=== PATIENT | female | born 1945 | race Caucasian/White ===

== ENCOUNTER 2018-04-23 04:11 | Emergency (ER) | payer OTHER ==
--- OUTSIDE RECORDS SUMMARY | 2018-04-23 04:13 | XMS REPORT | Clinical Summary ---
:1945 Author Organization [facility] Address [address] [place] [address] Care Team Providers Name Role Phone Macario Varela MD Primary Care Provider Allergies Active Allergy Reactions Severity Noted Date Comments Penicillins Anaphylaxis High 12/22/2009 Medications Medication Sig Dispensed Refills Start Date End Date Status TURMERIC (CURCUMIN 0 Active MISC)Indications: Generalized OA losartan (COZAAR) 25 MG Take 25 mg by 0 Active tabletIndications: mouth daily. Essential hypertension metoprolol tartrate Take 50 mg by 0 Active (LOPRESSOR) 50 mg mouth daily. tabletIndications: Paroxysmal atrial fibrillation (HCC) Active Problems Problem Noted Date Paroxysmal atrial fibrillation 04/23/1979 Sleep apnea Hypertension Encounters Date Type Specialty Care Team Description 06/19/2017 Office Visit Rheumatology Greg Mendieta MD Shortness of breath (Primary Dx); Positive DIANA (antinuclear antibody); Elevated C-reactive protein (CRP) 05/31/2017 Orders Only Rheumatology Marisa Pearl MA 05/15/2017 Office Visit Rheumatology Greg Mendieta MD Generalized OA ( Primary Dx); Encounter for long-term (current) use of NSAIDs; Paroxysmal atrial fibrillation; Vitamin D deficiency; Fatigue, unspecified type; Essential hypertension after 04/22/2017 Family History Medical History Relation Name Comments Other Brother TWINS, AT CHILDBIRTH Other Brother TWINS, AT CHILDBIRTH Colon cancer Father Diabetes type II Mother Brain cancer Sister Relation Name Status Comments Brother Brother Father Mother Sister Social History Tobacco Use Types Packs/Day Years Used Date Never Smoker Smokeless Tobacco: Never Used Alcohol Use Drinks/Week oz/Week Comments Yes Very rare Sex Assigned at Date Recorded Not on file Job Start Date Occupation Industry Not on file Not on file Not on file Travel History Travel Start Travel End No recent travel history available. Last Filed Vital Signs Vital Sign Reading Time Taken Blood Pressure 139/72 06/19/2017 4:23 PM PREMIX OPERATOR CONCENTRATE Pulse 67 06/19/2017 4:23 PM [facility] OPER[facility] Temperature 37.1 C (98.8 F) 06/19/2017 4:23 PM [facility] OPER[facility] Respiratory Rate 16 06/19/2017 4:23 PM [facility] OPER[facility] Oxygen Saturation 97% 06/19/2017 4:23 PM [facility] OPER[facility] Inhaled Oxygen Concentration - - Weight 94.8 kg (209 lb 1.6 oz) 06/19/2017 4:23 PM [facility] OPER[facility]CEN[facility] Height 169.5 cm (5' 6.75") 06/19/2017 4:23 PM [facility] OPER[facility] [employer]C[facility] Body Mass Index 33 06/19/2017 4:23 PM [facility] OPER[facility] Plan of Treatment Health Maintenance Due Date Last Done Comments BREAST CANCER SCREENING 1994 COLON CANCER SCREENING 1994 SHINGLES VACCINES (1 of 2) 1994 PNEUMOCOCCAL POLYSACCHARIDE VACCINE AGE 65 AND OVER 2009 PNEUMOCOCCAL-13 2009 INFLUENZA VACCINE 11/21/2017 Procedures Procedure Name Priority Date/Time Associated Comments Diagnosis TB GOLD QUANTIFERON Routine 06/21/2017 9:20 Positive DIANA Results for this AM PREMIX OPERATOR CONCENTRATE (antinuclear procedure are in antibody) the results section. SM AND SM/HEAVY EQUIPMENT OPERATOR Routine 06/21/2017 9:17 Positive DIANA Results for this ANTIBODIES AM PREMIX OPERATOR CONCENTRATE (antinuclear procedure are in antibody) the results section. SCLERODERMA ANTIBODY Routine 06/21/2017 9:17 Positive DIANA Results for this AM PREMIX OPERATOR CONCENTRATE (antinuclear procedure are in antibody) the results section. ANCA SCREEN WITH REFLEX Routine 06/21/2017 9:17 Positive DIANA Results for this TO ANCA TITER AM PREMIX OPERATOR CONCENTRATE (antinuclear procedure are in antibody) the results section. LIV-1 ANTIBODY Routine 06/21/2017 9:17 Positive DIANA Results for this AM PREMIX OPERATOR CONCENTRATE (antinuclear procedure are in antibody) the results section. DNA AB SCREEN Routine 06/21/2017 9:17 Positive DIANA Results for this AM PREMIX OPERATOR CONCENTRATE (antinuclear procedure are in antibody) the results section. COMPLEMENT ACTIVITY, Routine 06/21/2017 9:17 Positive DIANA Results for this TOTAL AM PREMIX OPERATOR CONCENTRATE (antinuclear procedure are in antibody) the results section. C4 COMPLEMENT COMPONENT Routine 06/21/2017 9:17 Positive DIANA Results for this AM PREMIX OPERATOR CONCENTRATE (antinuclear procedure are in antibody) the results section. C3 COMPLEMENT COMPONENT Routine 06/21/2017 9:17 Positive DIANA Results for this AM PREMIX OPERATOR CONCENTRATE (antinuclear procedure are in antibody) the results section. ANGIOTENSIN CONVERTING Routine 06/21/2017 9:17 Shortness of breath Results for this ENZYME AM PREMIX OPERATOR [employer]CENTRATE procedure are in the results section. THYROID STIMULATING Routine 05/15/2017 4:23 Fatigue, Results for this HORMONE PM [facility] [facility]PER[employer]C[facility] unspecified type procedure are in the results section. T4, FREE Routine 05/15/2017 4:23 Fatigue, Results for this PM [employer]MIX OPERATOR [employer]CENTRATE unspecified type procedure are in the results section. RHEUMATOID FACTOR Routine 05/15/2017 4:23 Generalized OA Results for this PM [employer] [facility]PER[facility] [employer] procedure are in the results section. SS-A ANTIBODY Routine 05/15/2017 4:23 Generalized OA Results for this PM [employer] OPER[employer]CEN[facility] procedure are in the results section. SS-B ANTIBODY Routine 05/15/2017 4:23 Generalized OA Results for this PM [employer] OPER[employer]CENTRATE procedure are in the results section. VITAMIN D 25 HYDROXY Routine 05/15/2017 4:23 Vitamin D Results for this LEVEL PM [employer]PER[facility] deficiency procedure are in the results section. HLA-B27 ANTIGEN Routine 05/15/2017 4:23 Generalized OA Results for this PM [employer] OPER[facility] [employer]CENTR[facility] procedure are in the results section. CYCLIC CITRULLINATED Routine 05/15/2017 4:23 Generalized OA Results for this PEPTIDE AB, IGG PM [facility] OPER[facility]CENTRATE procedure are in the results section. DNA AB SCREEN Routine 05/15/2017 4:23 Generalized OA Results for this PM [employer] OPER[employer]CENTR[facility] procedure are in the results section. CREATINE KINASE, TOTAL Routine 05/15/2017 4:23 Generalized OA Results for this (CPK) PM [facility] OPER[facility]CEN[facility] procedure are in the results section. DIANA SCREEN W IFA W Routine 05/15/2017 4:23 Generalized OA Results for this REFLEX TO TITER PM [employer]MIX OPERATOR [employer]CENTR[facility] procedure are in the results section. SEDIMENTATION RATE Routine 05/15/2017 4:23 Generalized OA Results for this PM [employer]PER[facility] procedure are in the results section. C-REACTIVE PROTEIN Routine 05/15/2017 4:23 Generalized OA Results for this PM [employer] OPER[facility] procedure are in the results section. SERUM ELECTROPHORESIS Routine 05/15/2017 4:23 Generalized OA Results for this PM [employer] OPER[facility]CENTRATE procedure are in the results section. after 04/22/2017 Results TB GOLD Quantiferon (06/21/2017 9:20 AM PREMIX OPERATOR CONCENTRATE) Quantiferon TB gold NEGATIVE NEGATIVE [facility] Comment: KIT CARSON Negative test result. M. tuberculosis complex infection unlikely. Quantiferon NIL value 0.03 IU/mL [facility] KIT CARSON Quantiferon mitogen NIL >10.00 IU/mL [facility] value KIT CARSON Quantiferon TB NIL value 0.00 IU/mL [facility] Comment: KIT CARSON The Nil tube value is used to determine if the patient has a preexisting immune response which could cause a false-positive reading on the test. In order for a test to be valid, the Nil tube must have a value of less than or equal to 8.0 IU/mL. The mitogen control tube is used to assure the patient has a healthy immune status and also serves as a control for correct blood handling and incubation. It is used to detect false-negative readings. The mitogen tube must have a gamma interferon value of greater than or equal to 0.5 IU/mL higher than the value of the Nil tube. The TB antigen tube is coated with the M. tuberculosis specific antigens. For a test to be considered positive, the TB antigen tube value minus the Nil tube value must be greater than or equal to 0.35 IU/mL. For additional information, please refer to http://education.MaxLinear/faq/QFT (This link is being provided for informational/ educational purposes only.) Specimen Blood Narrative Performed At SPLIT 06/21/2017 FROM [id number] [employer] Resulting Agency Comment Performing Organization Information: Site ID: [id number] Name: [facility] Address: [address] [place] [phone] Director: Fadia James MD Performing Organization Address [facility]/Zipcode Phone Number [facility] [place] [phone] Sm and Sm/HEAVY EQUIPMENT OPERATOR Antibodies (06/21/2017 9:17 AM PREMIX OPERATOR CONCENTRATE) Barajas antibody <1.0 NEG <1.0 NEG AI [facility] HEAVY EQUIPMENT OPERATOR-SM interp <1.0 NEG <1.0 NEG AI [facility] II Specimen Blood Narrative Performed At FASTING:NO [facility] MULTIPLE COLLECTION TIMES FOR SAME TEST TYPE. FASTING: NO Resulting Agency Comment Performing Organization Information: Site ID: [id number] Name: [facility] Address: [address] [place] [address] Director: Dr. Johnson Burnham Performing Organization Address City/State/Zipcode Phone Number [email or web address] II [address] [facility] [place] [address] ANCA SCREEN WITH REFLEX TO ANCA TITER (06/21/2017 9:17 AM PREMIX OPERATOR CONCENTRATE) ANCA screen NEGATIVE NEGATIVE [facility]/[place] Comment: [facility] ANCA Screen includes evaluation for p-ANCA, c-ANCA and atypical p-ANCA. A positive ANCA screen reflexes to titer and pattern(s), e.g., cytoplasmic pattern (c-ANCA), perinuclear pattern (p-ANCA), or atypical p-ANCA pattern. c-ANCA and p-ANCA are observed in vasculitis, whereas atypical p-ANCA is observed in IBD (Inflammatory Bowel Disease). Atypical p-ANCA is detected in about 55% to 80% of patients with ulcerative colitis but only 5% to 25% of patients with Crohn's disease. P-ANCA titer TNP titer [facility]/[place] Comment: [facility] Test Not Performed. Reflex testing not required. C-ANCA titer TNP titer [facility]/[place] Comment: [facility] Test Not Performed. Reflex testing not required. Atypical P-ANCA titer TNP titer [facility] Comment: [facility] Test Not Performed. Reflex testing not required. Specimen Blood Narrative Performed At FASTING:NO [facility] MULTIPLE COLLECTION TIMES FOR SAME TEST TYPE. FASTING: NO Resulting Agency Comment Performing Organization Information: Site ID: [id number] Name: [employer], Address: [address] [place] [phone] Director: Precious Stein MD,PhD,FERNANDA Performing Organization Address [facility] Phone Number [facility]/PURVIS [phone] [place] [address] [facility] Liv-1 antibody (06/21/2017 9:17 AM PREMIX OPERATOR CONCENTRATE) Liv-1 antibody <1.0 NEG <1.0 NEG AI [facility] II Specimen Blood Narrative Performed At FASTING:NO [facility] MULTIPLE COLLECTION TIMES FOR SAME TEST TYPE. FASTING: NO Resulting Agency Comment Performing Organization Information: Site ID: IG Name: [facility] Address: [address] [facility] [place] [address] Director: Dr. Johnson Burnham Performing Organization Address [facility] Hospitalcode Phone Number [employer] II [address] [place] [address] DNA Ab screen (06/21/2017 9:17 AM PREMIX OPERATOR CONCENTRATE)Only the most recent of2 resultswithin the time period is included. DNA ds antibody <1 IU/mL [facility] II Comment: IU/mL Interpretation < or=4Negative 5-9 Indeterminate > or=10 Positive Specimen Blood Narrative Performed At FASTING:NO [facility] MULTIPLE COLLECTION TIMES FOR SAME TEST TYPE. FASTING: NO Resulting Agency Comment Performing Organization Information: Site ID: IG Name: [facility] Address: [address] [place] [phone] Director: Dr. Johnson Burnham Performing Organization Address [facility] Phone Number [employer] II [address] [place] [address] Scleroderma antibody (06/21/2017 9:17 AM PREMIX OPERATOR CONCENTRATE) Scleroderma SCL-70 Ab <1.0 NEG <1.0 NEG AI [email or web address] II Specimen Blood Narrative Performed At FASTING:NO [facility] MULTIPLE COLLECTION TIMES FOR SAME TEST TYPE. FASTING: NO Resulting Agency Comment Performing Organization Information: Site ID: IG Name: [facility] Address: [address] [place] [phone] Director: Dr. Johnson Burnham Performing Organization Address [facility] Phone Number [employer] II [address] [place] [address] Angiotensin converting enzyme (06/21/2017 9:17 AM PREMIX OPERATOR CONCENTRATE) Angiotensin converting enzyme 32 9 - 67 U/L [facility] II Specimen Blood Narrative Performed At FASTING:NO [facility] MULTIPLE COLLECTION TIMES FOR SAME TEST TYPE. FASTING: NO Resulting Agency Comment Performing Organization Information: Site ID: IG Name: [facility] Address: [address] [place] [phone] Director: Dr. Johnson Burnham Performing Organization Address [facility] Phone Number [employer] II [address] [place] [phone] Complement activity, total (06/21/2017 9:17 AM PREMIX OPERATOR CONCENTRATE) Complement activity, total >60 (H) 31 - 60 U/mL [facility]/[employer] [facility] Specimen Blood Narrative Performed At FASTING:NO [facility] MULTIPLE COLLECTION TIMES FOR SAME TEST TYPE. FASTING: NO Resulting Agency Comment Performing Organization Information: Site ID: EZ Name: [employer] [facility]-[place], Address: [address] [place] [phone] Director: Precious Stein MD,PhD,FERNANDA Performing Organization Address City/State/Zipcode Phone Number [facility]/[employer] [address] [place] [address] [facility] C3 complement component (06/21/2017 9:17 AM PREMIX OPERATOR CONCENTRATE) C3 complement 143 83 - 193 mg/dL [facility] KIT CARSON Specimen Blood Narrative Performed At FASTING:NO [facility] MULTIPLE COLLECTION TIMES FOR SAME TEST TYPE. FASTING: NO Resulting Agency Comment Performing Organization Information: Site ID: RGA Name: [facility] Address: [address] [place] [phone] Director: Fadia James MD Performing Organization Address [facility] Phone Number [employer] [address] [address] C4 complement component (06/21/2017 9:17 AM PREMIX OPERATOR CONCENTRATE) C4 complement 32 15 - 57 mg/dL [facility] KIT CARSON Specimen Blood Narrative Performed At FASTING:NO [facility] MULTIPLE COLLECTION TIMES FOR SAME TEST TYPE. FASTING: NO Resulting Agency Comment Performing Organization Information: Site ID: RGA Name: [facility] Address: [address] [place] [phone] Director: Fadia James MD Performing Organization Address [facility] Phone Number [employer] [place] [phone] DIANA SCREEN W IFA W REFLEX TO TITER (05/15/2017 4:23 PM PREMIX OPERATOR CONCENTRATE) DIANA screen POSITIVE (A) NEGATIVE [facility] II Comment: DIANA IFA is a first line screen for detecting the presence of up to approximately 150 autoantibodies in various autoimmune diseases. A positive DIANA IFA result is suggestive of autoimmune disease and reflexes to titer and pattern. Further laboratory testing may be considered if clinically indicated. Visit Physician FAQs for interpretation of all antibodies in the [place], prevalence, and association with diseases at http://LensVector.[employer]/ faq/KFS386 DIANA pattern SPECKLED (A) [email or web address] II Comment: Speckled pattern is associated with mixed connective tissue disease (MCTD), systemic lupus erythematosus (SLE), Sjogren's syndrome, dermatomyositis, and systemic sclerosis/polymyositis overlap. DIANA titer 1:40 (H) titer [email or web address] II Comment: A low level DIANA titer may be present in pre-clinical autoimmune diseases and normal individuals. Reference Range <1:40Negative 1:40-1:80Low Antibody Level >1:80Elevated Antibody Level Specimen Blood Narrative Performed At FASTING:NO [facility] FASTING: NO Resulting Agency Comment Performing Organization Information: Site ID: IG Name: [facility] Address: [address] [place] [phone] Director: Dr. Johnson Burnham Performing Organization Address [facility] Phone Number [employer] [address] [address] SS-B antibody (05/15/2017 4:23 PM PREMIX OPERATOR CONCENTRATE) Sjogren's SS-B antibody <1.0 NEG <1.0 NEG AI [email or web address] Specimen Blood Narrative Performed At FASTING:NO [facility] FASTING: NO Resulting Agency Comment Performing Organization Information: Site ID: IG Name: [facility] Address: [address] [place] [phone] Director: Dr. Johnson Burnham Performing Organization Address [facility] Phone Number [employer] [address] [address] SS-A antibody (05/15/2017 4:23 PM PREMIX OPERATOR CONCENTRATE) Sjogren's SS-A antibody <1.0 NEG <1.0 NEG AI [email or web address] Specimen Blood Narrative Performed At FASTING:NO [facility] FASTING: NO Resulting Agency Comment Performing Organization Information: Site ID: IG Name: [facility] Address: [address] [place] [phone] Director: Dr. Johnson Burnham Performing Organization Address [facility] Phone Number [facility] [employer] [address] HLA-B27 antigen (05/15/2017 4:23 PM PREMIX OPERATOR CONCENTRATE) HLA B27 NEGATIVE NEGATIVE [email or web address] Specimen Blood Narrative Performed At FASTING:NO [facility] FASTING: NO Resulting Agency Comment Performing Organization Information: Site ID: IG Name: [facility] Address: [address] [place] [phone] Director: Dr. Johnson Burnham Performing Organization Address [facility] Phone Number [email or web address] [address] Cyclic citrullinated peptide antibody, IgG (05/15/2017 4:23 PM PREMIX OPERATOR CONCENTRATE) Cyclic citrullin peptide <16 UNITS [email or web address] Ab Comment: II Reference Range Negative:<20 Weak Positive: 20-39 Moderate Positive: 40-59 Strong Positive: >59 Specimen Blood Narrative Performed At FASTING:NO [facility] FASTING: NO Resulting Agency Comment Performing Organization Information: Site ID: IG Name: [facility] Address: [address] [place] [phone] Director: Dr. Johnson Burnham Performing Organization Address [facility] Phone Number [email or web address] [address] Vitamin D 25 hydroxy level (05/15/2017 4:23 PM PREMIX OPERATOR CONCENTRATE) Vitamin D, 25-hydroxy 13 (L) 30 - 100 ng/mL [facility] Comment: SANCHEZ Vitamin D Status 25-OH Vitamin D: Deficiency:<20 ng/mL Insufficiency: 20 - 29 ng/mL Optimal: > or=30 ng/mL For 25-OH Vitamin D testing on patients on D2-supplementation and patients for whom quantitation of D2 and D3 fractions is required, the QuestAssureD() 25-OH VIT D, (D2,D3), LC/MS/MS is recommended: order code 65802 (patients >2yrs). For more information on this test, go to: http://education.MaxLinear/faq/YXP755 (This link is being provided for informational/educational purposes only.) Specimen Blood Narrative Performed At FASTING:NO [facility] FASTING: NO Resulting Agency Comment Performing Organization Information: Site ID: [facility] Name: [facility] Address: [address] [place], [place] [id number] Director: Fadia James MD Performing Organization Address [facility] [place] [address] Sedimentation rate (05/15/2017 4:23 PM PREMIX OPERATOR CONCENTRATE) Sedimentation rate 22 < OR=30 mm/h [facility] [employer] KIT CARSON Specimen Blood Narrative Performed At FASTING:NO [facility] FASTING: NO Resulting Agency Comment Performing Organization Information: Site ID: [facility] Name: [facility] Address: [address] [place] [address] Director: Fadia James MD Performing Organization Address [facility] [place] [address] Rheumatoid factor (05/15/2017 4:23 PM PREMIX OPERATOR CONCENTRATE) Rheumatoid factor <14 <14 IU/mL [facility] [employer] KIT CARSON Specimen Blood Narrative Performed At FASTING:NO [facility] FASTING: NO Resulting Agency Comment Performing Organization Information: Site ID: [facility] Name: [facility] Address: [address] [place] [phone] Director: Fadia James MD Performing Organization Address [facility] [place] [address] C-reactive protein (05/15/2017 4:23 PM PREMIX OPERATOR CONCENTRATE) CRP 8.5 (H) <8.0 mg/L [facility] KIT CARSON Specimen Blood Narrative Performed At FASTING:NO [facility] FASTING: NO Resulting Agency Comment Performing Organization Information: Site ID: [facility] Name: [facility] Address: [address] [place] [phone] Director: Fadia James MD Performing Organization Address [facility] [place] [address] Thyroid stimulating hormone (05/15/2017 4:23 PM PREMIX OPERATOR CONCENTRATE) TSH 1.02 0.40 - 4.50 mIU/L [facility] KIT CARSON Narrative Performed At FASTING:NO [facility] FASTING: NO Resulting Agency Comment Performing Organization Information: Site ID: [facility] Name: [facility] Address: [address] [place], [place] [id number] Director: Fadia James MD Performing Organization Address [facility] Phone Number [employer] [place] [phone] T4, free (05/15/2017 4:23 PM PREMIX OPERATOR CONCENTRATE) T4, free 1.2 0.8 - 1.8 ng/dL [employer] KIT CARSON Narrative Performed At FASTING:NO [facility] FASTING: NO Resulting Agency Comment Performing Organization Information: Site ID: [facility] Name: [facility] Address: [address] [place] [address] Director: Fadia James MD Performing Organization Address [facility] [place] [address] Serum electrophoresis (05/15/2017 4:23 PM PREMIX OPERATOR CONCENTRATE) Protein 6.9 6.1 - 8.1 g/dL [facility] II Albumin, S 4.2 3.8 - 4.8 g/dL [facility] II Antnc-1-figsibil 0.3 0.2 - 0.3 g/dL [facility] II Zwewp-2-blgwqxbd 0.7 0.5 - 0.9 g/dL [facility] II Beta-1 globulin 0.4 0.4 - 0.6 g/dL [facility] II Beta-2 globulin 0.4 0.2 - 0.5 g/dL [facility] Gamma, CSF 0.9 0.8 - 1.7 g/dL [facility] Interpretation [facility] Normal Electrophoretic Pattern Specimen Blood Narrative Performed At FASTING:NO [facility] FASTING: NO Resulting Agency Comment Performing Organization Information: Site ID: [id number] Name: [facility] Address: [address] [place] [address] Director: Dr. Johnson Burnham Performing Organization Address City/State/[facility] Phone Number [facility] [address] [facility] [place] [address] Creatine kinase, total (CPK) (05/15/2017 4:23 PM PREMIX OPERATOR CONCENTRATE) Creatine kinase 61 29 - 143 U/L [facility] Specimen Blood Narrative Performed At FASTING:NO [facility] FASTING: NO Resulting Agency Comment Performing Organization Information: Site ID: [id number] Name: [facility] Address: [address] [place] [address] Director: Fadia James MD Performing Organization Address City/[facility] Phone Number [facility] KIT CARSON [address] [place] [address] after 04/22/2017 Insurance Payer Benefit Plan / Group Subscriber ID Type Phone Address HUMANA MEDICARE HUMANA MEDICARE PPO/PFFS/[facility] xxxxxxxxx PPO Advance Directives Patient has advance care planning documents on file. For more information, please contact:Chuck Cole[address] [place] [address]
--- NOTE | 2018-04-23 05:08 | EDPHYS ---
Physician Documentation [facility] Name: Zhanna Santos Age: 72 yrs Sex: Female : 1945 Arrival Date: 04/23/2018 Time: 04:12 Bed 15 Private MD: Macario Varela V ED Physician Homar Carlos HPI: 04/23 05:03 This 72 yrs old Female presents to ER via Unassigned with complaints of joint gs pain, Shoulder Pain. 05:03 joint pain, last week bl knee joint pain got better, improved with celebrex, now has gs right shoulder pain. states pain is severe worse with rom of r [place]. Historical: - Allergies: 04:50 PENICILLINS; cc3 - Home Meds: 04:50 glimepiride 2 mg Oral tab 1 tab once daily [Active]; Farxiga 10 mg oral tab 1 tab once cc3 daily [Active]; hydrochlorothiazide 12.5 mg Oral cap 1 cap every other day [Active]; metoprolol tartrate 100 mg Oral tab 1 tab once daily [Active]; losartan 25 mg oral tab 1 tab once daily [Active]; - PMHx: 05:06 Hypertension; Diabetes - NIDDM; gs 04:50 irregular heartbeat; cc3 - PSHx: 04:50 Hysterectomy; Appendectomy; 2 bladder surgeries; cc3 - Immunization history:: Adult Immunizations up to date. - Social history:: The patient lives at home, Smoking status: Patient/guardian denies using tobacco, never smoked. - Ebola Screening: : No symptoms or risks identified at this time. ROS: 05:06 All other systems are negative. gs Exam: 05:06 Head/Face: Normocephalic, atraumatic. Eyes: Pupils equal round and reactive to light, gs extra-ocular motions intact. Lids and lashes normal. Conjunctiva and sclera are non-icteric and not injected. Cornea within normal limits. Periorbital areas with no swelling, redness, or edema. ENT: Nares patent. No nasal discharge, no septal abnormalities noted. Tympanic membranes are normal and external auditory canals are clear. Oropharynx with no redness, swelling, or masses, exudates, or evidence of obstruction, uvula midline. Mucous membranes moist. Neck: Trachea midline, no thyromegaly or masses palpated, and no cervical lymphadenopathy. Supple, full range of motion without nuchal rigidity, or vertebral point tenderness. No Meningismus. Chest/axilla: Normal chest wall appearance and motion. Nontender with no deformity. No lesions are appreciated. Cardiovascular: Regular rate and rhythm with a normal S1 and S2. No gallops, murmurs, or rubs. Normal PMI, no JVD. No pulse deficits. Respiratory: Lungs have equal breath sounds bilaterally, clear to auscultation and percussion. No rales, rhonchi or wheezes noted. No increased work of breathing, no retractions or nasal flaring. Abdomen/GI: Soft, non-tender, with normal bowel sounds. No distension or tympany. No guarding or rebound. No evidence of tenderness throughout. Back: No spinal tenderness. No costovertebral tenderness. Full range of motion. Skin: Warm, dry with normal turgor. Normal color with no rashes, no lesions, and no evidence of cellulitis. Neuro: Awake and alert, GCS 15, oriented to person, place, time, and situation. Cranial nerves II-XII grossly intact. Motor strength 5/5 in all extremities. Sensory grossly intact. Cerebellar exam normal. Normal gait. 05:06 Constitutional: The patient appears alert, awake. 05:06 Musculoskeletal/extremity: Pulses: are normal with no appreciated deficits, Sensation intact. Compartment Syndrome exam of affected extremity: is normal. Joints: the right shoulder displays tenderness, pain with rom no effusion or erythema. Vital Signs: 04:50 BP 136 / 59; Pulse 60; Resp 17 S; Temp 98.8(O); Pulse Ox 98% on R/A; Weight 92.53 kg cc3 (R); Height 5 ft. 7 in. (170.18 cm) (R); 04:50 Body Mass Index 31.95 (92.53 kg, 170.18 cm) cc3 MDM: 04:55 Patient medically screened. 05:06 Differential diagnosis: tendonitis, arthritis. Data reviewed: vital signs, nurses gs notes. Response to treatment: the patient's symptoms have mildly improved after treatment, and as a result, I will discharge patient. Administered Medications: 05:25 Drug: predniSONE 40 mg Route: PO; cc3 05:33 Follow up: Response: No adverse reaction cc3 05:25 Drug: Saline (7.5 mg-325 mg) 1 tabs Route: PO; cc3 05:33 Follow up: Response: No adverse reaction cc3 Disposition: 04/23/18 05:07 Discharged to Home. Impression: Polyarthritis, unspecified. - Condition is Stable. - Discharge Instructions: Arthritis, [id number]. - Prescriptions for Ibuprofen 600 mg Oral Tablet - take 1 tablet by ORAL route every 6 hours As needed take with food; 30 tablet. Prednisone 20 mg Oral Tablet - take 1 tablet by ORAL route once daily for 5 days; 5 tablet. Tylenol- Codeine #4 300-60 mg Oral Tablet - take 1 tablet by ORAL route every 6 hours As needed; 10 tablet. - Medication Reconciliation Form, Thank You Letter, Antibiotic Education, Prescription Opioid Use form. - Follow up: Macario Varela MD; When: 2 - 3 days; Reason: Re-evaluation by your physician. Signatures: Homar Carlos MD MD Florencia Sparks cc3 Corrections: (The following items were deleted from the chart) 05:33 05:07 04/23/2018 05:07 Discharged to Home. Impression: Polyarthritis, unspecified. cc3 Condition is Stable. Forms are Medication Reconciliation Form, Thank You Letter, Antibiotic Education, Prescription Opioid Use. Follow up: Macario Varela; When: 2 - 3 days; Reason: Re-evaluation by your physician. gs
[2018-04-23] MEDS ORDERED: HYDROCODONE/APAP 7.5/325 MG TAB ONE (05:30)
[2018-04-23] MEDS ORDERED: predniSONE 20 MG TAB ONE (05:31)
--- NOTE | 2018-04-23 05:34 | ER ---
Nurse's Notes [facility] Name: Zhanna Santos Age: 72 yrs Sex: Female : 1945 Arrival Date: 04/23/2018 Time: 04:12 Bed 15 Private MD: Macario Varela V Diagnosis: Polyarthritis, unspecified Presentation: 04/23 04:50 Presenting complaint: Patient states: Nontraumatic right shoulder joint pain since 4 cc3 days. Transition of care: patient was not received from another setting of care. Onset of symptoms was April 18, 2018. Risk Assessment: Do you want to hurt yourself or someone else? Patient reports no desire to harm self or others. Initial Sepsis Screen: Does the patient meet any 2 criteria? No. Patient's initial sepsis screen is negative. Does the patient have a suspected source of infection? No. Patient's initial sepsis screen is negative. Care prior to arrival: None. 04:50 Method Of Arrival: Ambulatory cc3 04:50 Acuity: SIVAKUMAR 4 cc3 Triage Assessment: 04:50 General: Appears in no apparent distress. uncomfortable, Behavior is calm, cooperative, cc3 appropriate for age. Pain: Complains of pain in right shoulder. Historical: - Allergies: 04:50 PENICILLINS; cc3 - Home Meds: 04:50 glimepiride 2 mg Oral tab 1 tab once daily [Active]; Farxiga 10 mg oral tab 1 tab once cc3 daily [Active]; hydrochlorothiazide 12.5 mg Oral cap 1 cap every other day [Active]; metoprolol tartrate 100 mg Oral tab 1 tab once daily [Active]; losartan 25 mg oral tab 1 tab once daily [Active]; - PMHx: 05:06 Hypertension; Diabetes - NIDDM; gs 04:50 irregular heartbeat; cc3 - PSHx: 04:50 Hysterectomy; Appendectomy; 2 bladder surgeries; cc3 - Immunization history:: Adult Immunizations up to date. - Social history:: The patient lives at home, Smoking status: Patient/guardian denies using tobacco, never smoked. - Ebola Screening: : No symptoms or risks identified at this time. Screenin:50 Abuse screen: Denies threats or abuse. Denies injuries from another. Nutritional cc3 screening: No deficits noted. Tuberculosis screening: No symptoms or risk factors identified. Fall Risk Ambulatory Aid- None/Bed Rest/Nurse Assist (0 pts). Gait- Normal/Bed Rest/Wheelchair (0 pts) Mental Status- Oriented to own ability (0 pts). Assessment: 05:33 Reassessment: Patient appears in no apparent distress at this time. Patient and/or cc3 family updated on plan of care and expected duration. Pain level reassessed. Patient is alert, oriented x 3, equal unlabored respirations, skin warm/dry/pink. Dr. Carlos discharged the patient home with prescription given. No IV cannula in situ and patient left ER vitally stable and ambulatory with her . Vital Signs: 04:50 BP 136 / 59; Pulse 60; Resp 17 S; Temp 98.8(O); Pulse Ox 98% on R/A; Weight 92.53 kg cc3 (R); Height 5 ft. 7 in. (170.18 cm) (R); 04:50 Body Mass Index 31.95 (92.53 kg, 170.18 cm) cc3 ED Course: 04:12 Patient arrived in ED. am2 04:12 Macario Varela MD is Private Physician. am2 04:30 Florencia Sparks is Primary Nurse. cc3 04:40 Homar Carlos MD is Attending Physician. gs 04:50 Arm band placed on left wrist. Patient notified of wait time. cc3 04:50 Patient has correct armband on for positive identification. Bed in low position. Call cc3 light in reach. Side rails up X 1. Pulse ox on. NIBP on. 05:07 Macario Varela MD is Referral Physician. gs 05:14 Triage completed. cc3 05:33 No provider procedures requiring assistance completed. Patient did not have IV access cc3 during this emergency room visit. Administered Medications: 05:25 Drug: predniSONE 40 mg Route: PO; cc3 05:33 Follow up: Response: No adverse reaction cc3 05:25 Drug: Weed (7.5 mg-325 mg) 1 tabs Route: PO; cc3 05:33 Follow up: Response: No adverse reaction cc3 Outcome: 05:07 Discharge ordered by . gs 05:33 Patient left the ED. cc3 05:33 Discharged to home ambulatory, with family. cc3 05:33 Condition: stable 05:33 Discharge instructions given to patient, family, Instructed on discharge instructions, follow up and referral plans. medication usage, Demonstrated understanding of instructions, follow-up care, medications, Prescriptions given X 3. Signatures: Barbara Nova am2 Homar Carlos MD MD gs Cordel, Charlene cc3 Corrections: (The following items were deleted from the chart) 06:55 05:34 No provider procedures requiring assistance completed. cc3 cc3 06:55 05:34 Patient did not have IV access during this emergency room visit. cc3 cc3 07:03 05:34 Reassessment: Patient appears in no apparent distress at this time. Patient cc3 and/or family updated on plan of care and expected duration. Pain level reassessed. Patient is alert, oriented x 3, equal unlabored respirations, skin warm/dry/pink. Dr. Carlos discharged the patient home with prescription given. No IV cannula in situ and patient left ER vitally stable and ambulatory with her . cc3
== END 2018-04-23 05:33 | disposition home or self-care (01) ==
LOC: ER 04:11
DX: M13.0 Polyarthritis, unspecified (principal); I10 Essential (primary) hypertension; E11.9 Type 2 diabetes mellitus without complications; Z88.0 Allergy status to penicillin
CPT/HCPCS: 99283; J7512

== ENCOUNTER 2018-09-27 16:06 | Emergency (ER) | payer OTHER ==
--- OUTSIDE RECORDS SUMMARY | 2018-09-27 16:20 | XMS REPORT | Clinical Summary ---
:1945 Author Organization [facility] Address [address] [place] [address] Care Team Providers Name Role Phone Macario [...] Paroxysmal atrial fibrillation 04/23/1979 Sleep apnea Hypertension Family History Medical History Relation Name Comments [...] travel history available. Last Filed Vital Signs Not on file Plan of Treatment Health Maintenance Due Date Last Done Comments BREAST CANCER SCREENING 1994 COLON CANCER SCREENING 1994 SHINGLES VACCINES (#1) 1994 65+ PNEUMOCOCCAL VACCINE (1 of 2 - PCV13) 2009 INFLUENZA VACCINE 11/21/2018 Results Not on fileafter 09/26/2017 Insurance Payer Benefit Plan / Subscriber ID Effective Dates Phone Address Type Group HUMANA MEDICARE HUMANA MEDICARE xxxxxxxxx 2017-Present PPO PPO/PFFS/[facility] Advance Directives Patient has advance care planning documents on file. For more information, please contact:Chuck Cole[address] [place] [address]
[2018-09-27 17:14] LABS: Absolute Lymphocytes (CBC) 1.1 K/uL (0.7-4.9); Absolute Monocytes 1.2 K/uL (0.1-1.3); Absolute Neutrophil 8.2 K/uL (1.8-8.0); Basophils % 0.9 % (0-1.3); Eosinophils % 1.8 % (0-4.4); Hematocrit 45.3 % (36.0-45.0); Lymphocytes % 10.4 % (15.3-44.8); Monocytes % 11.2 % (3.3-12.3); RBC Red Blood Cell Count 4.84 M/uL (3.86-4.86)
[2018-09-27 17:16] LABS: Protime INR 1.02
--- NOTE | 2018-09-27 17:29 | RAD REPORT ---
EXAM DESCRIPTION: [facility] Single View09/27/2018 4:58 pm CLINICAL HISTORY: Chest pain COMPARISON: 2017 FINDINGS: The lungs appear clear of acute infiltrate. The heart is borderline enlarged IMPRESSION: No acute abnormalities displayed
[2018-09-27 17:30] LABS: ALT/SGPT 26 U/L (12-78); AST/SGOT 10 U/L (15-37); Albumin 3.4 g/dL (3.4-5.0); Alkaline Phosphatase 94 U/L (45-117); BUN Blood Urea Nitrogen 15 mg/dL (7-18); Bicarbonate 26 mmol/L (21-32); Bilirubin Direct 0.1 mg/dL (0-0.2); Bilirubin Total 0.5 mg/dL (0.2-1.0); Glucose Level 114 mg/dL (74-106); Lipase 55 U/L (73-393); Magnesium 2.2 mg/dL (1.8-2.4); NT PRO-BNP 233 pg/mL (<125); Protein, Total 7.5 g/dL (6.4-8.2); Sodium Level 139 mmol/L (136-145); Troponin (Emerg Dept Use Only) < 0.02 ng/mL (0.0-0.045)
--- NOTE | 2018-09-27 18:23 | RAD REPORT ---
EXAM DESCRIPTION: CT - Chest For Pe Angio - 09/27/2018 6:09 pm CLINICAL HISTORY: Chest pain COMPARISON: None. TECHNIQUE: Dynamically enhanced axial 3 mm thick images of the chest were obtained during administra tion of <100> mL Isovue 370 IV contrast. Coronal and oblique reconstruction images were generated and reviewed. Exam utilizes a protocol for optimal evaluation of pulmonary arterial tree. Maximum intensity projections 3D imaging was utilized All CT scans are performed using dose optimization technique as appropriate and may include automated exposure control or mA/KV adjustment according to patient size. FINDINGS: A pulmonary embolus is not seen. A thoracic aortic aneurysm is not noted. A pleural effusion is not seen. A pericardial effusion is not seen. A lung consolidation is not present. Fatty liver IMPRESSION: Negative for a pulmonary embolism.
--- NOTE | 2018-09-27 19:10 | ER ---
Nurse's Notes [facility] Name: Zhanna Santos Age: 72 yrs Sex: Female : 1945 Arrival Date: 09/27/2018 Time: 16:10 Bed 15 Private MD: Macario Varela V Diagnosis: Chest pain, unspecified Presentation: 09/27 16:15 Presenting complaint: Patient states: pain to right side of chest that began 3-4 days aa5 ago. Pt also reports SOB and upper abd pain. Pt denies vomiting/diarrhea. Transition of care: patient was not received from another setting of care. Onset of symptoms was September 2018. Risk Assessment: Do you want to hurt yourself or someone else? Patient reports no desire to harm self or others. Care prior to arrival: None. 16:15 Method Of Arrival: Ambulatory aa5 16:15 Acuity: SIVAKUMAR 3 aa5 19:31 Initial Sepsis Screen: Does the patient meet any 2 criteria? No. Patient's initial ak1 sepsis screen is negative. Does the patient have a suspected source of infection? No. Patient's initial sepsis screen is negative. Historical: - Allergies: 16:17 PENICILLINS; aa5 - PMHx: 16:17 Diabetes - NIDDM; Hypertension; irregular heartbeat; aa5 16:17 Mitral valve prolapse; aa5 - PSHx: 16:17 Hysterectomy; Appendectomy; 2 bladder surgeries; aa5 - Immunization history:: Adult Immunizations up to date. - Social history:: Smoking status: Patient/guardian denies using tobacco. - Ebola Screening: : No symptoms or risks identified at this time. Screenin:32 Abuse screen: Denies threats or abuse. Denies injuries from another. Nutritional ch screening: No deficits noted. Tuberculosis screening: No symptoms or risk factors identified. Fall Risk None identified. Assessment: 17:45 Reassessment: Patient appears in no apparent distress at this time. Patient and/or ch family updated on plan of care and expected duration. Pain level reassessed. Patient is alert, oriented x 3, equal unlabored respirations, skin warm/dry/pink. General: Appears in no apparent distress. comfortable. Pain: Pain does not radiate. Pain began suddenly. Neuro: No deficits noted. Cardiovascular: Heart tones S1 S2 present Capillary refill < 3 seconds in bilateral fingers toes Clubbing of nail beds is absent Pulses are all present. Respiratory: Airway is patent Respiratory effort is even, unlabored, Breath sounds are clear bilaterally. GI: No signs and/or symptoms were reported involving the gastrointestinal system. Abdomen is round non-distended, Bowel sounds present X 4 quads. EENT: No signs and/or symptoms were reported regarding the EENT system. 19:30 Reassessment: Patient appears in no apparent distress at this time. General: Appears in ak1 no apparent distress. comfortable, Behavior is calm, cooperative. Pain: Denies pain. Neuro: No deficits noted. Cardiovascular: No deficits noted. Respiratory: No deficits noted. GI: No deficits noted. : No signs and/or symptoms were reported regarding the genitourinary system. EENT: No signs and/or symptoms were reported regarding the EENT system. Derm: No signs and/or symptoms reported regarding the dermatologic system. Musculoskeletal: No signs and/or symptoms reported regarding the musculoskeletal system. Vital Signs: 16:17 BP 141 / 84; Pulse 65; Resp 18 S; Temp 99.3(O); Pulse Ox 96% on R/A; Weight 91.63 kg aa5 (R); Height 5 ft. 7 in. (170.18 cm) (R); Pain 3/10; 17:45 BP 147 / 62; Pulse 56; Resp 16; Temp 98.1; Pulse Ox 99% on R/A; Pain 3/10; ch 18:31 BP 126 / 82; Pulse 56; Resp 14; Pulse Ox 99% on R/A; Pain 1/10; ch 19:32 BP 139 / 66; Pulse 53; Resp 16; Temp 98.2; Pulse Ox 98% on R/A; Pain 0/10; ak1 16:17 Body Mass Index 31.64 (91.63 kg, 170.18 cm) aa5 ED Course: 16:10 Patient arrived in ED. mr 16:10 Macario Varela MD is Private Physician. mr 16:13 Arm band placed on. aa5 16:16 Triage completed. aa5 16:19 Kendell Millan NP is PHCP. pm1 16:19 Lisandro Dinero MD is Attending Physician. pm1 16:19 EKG completed in triage. Results shown to MD. aa5 16:20 Mota, Shaunna, RN is Primary Nurse. 16:34 EKG done, by net technical architect. reviewed by Kendell Millan NP. 3 16:55 X-ray completed. Portable x-ray completed in exam room. Patient tolerated procedure ml well. 16:56 XRAY Chest (1 view) In Process Unspecified. EDMS 17:00 Patient has correct armband on for positive identification. Placed in gown. Bed in low ch position. Call light in reach. Side rails up X 1. Adult w/ patient. quality assurance monitor final on. Pulse ox on. NIBP on. 17:00 Warm blanket given. ch 17:00 No provider procedures requiring assistance completed. Patient maintains SpO2 ch saturation greater than 95% on room air. 17:03 Initial lab(s) drawn, by me, sent to lab. Inserted saline lock: 20 gauge in right dh3 antecubital area, using aseptic technique. Blood collected. 17:[address] ks 18:10 CT Chest For PE Angio In Process Unspecified. EDOH 19:17 Eric Evans, RN is Primary Nurse. ak1 19:18 Report given to eric. 19:31 IV discontinued, intact, bleeding controlled, No redness/swelling at site. Pressure ak1 dressing applied. Administered Medications: 19:30 Drug: GI Cocktail without - (Maalox Suspension 30 ml, Lidocaine Liquid 2 % 15 ak1 ml) Route: PO; 19:30 Follow up: Response: No adverse reaction; Medication administered at discharge. ak1 Outcome: 19:11 Discharge ordered by MD. pm1 19:31 Discharged to home ambulatory, with family. ak1 19:31 Condition: good 19:31 Discharge instructions given to patient, family, Instructed on discharge instructions, follow up and referral plans. medication usage, Demonstrated understanding of instructions, follow-up care, medications, Prescriptions given X 1. 19:32 Patient left the ED. ak1 Signatures: Dispatcher [employer] EDOH Shaunna Mota, JORDAN Stein, Nicole mr Hunter, Julia Parham RN RN aa5 Eric Evans, RN RN ak1 Kendell Millan, GERALDO BURR FILER pm1 Kristopher Small Deanna [facility] Henna Armando 3 Corrections: (The following items were deleted from the chart) 16:19 16:17 PMHx: Prolapsed mitral valve; aa5 aa5 16:23 16:17 BP 141 / 84; Pulse 65bpm; Resp 18bpm; Spontaneous; Pulse Ox 96% RA; 91.63 kg aa5 Reported; Height 5 ft. 7 in. Reported; BMI: 31.6; Pain 3/10; aa5 18:32 17:45 BP 126 / 82; Pulse 56bpm; Resp 14bpm; Pulse Ox 99% RA; Pain 1/10; ch ch
--- NOTE | 2018-09-27 19:11 | EDPHYS ---
Physician Documentation [facility] – [place], [place] Name: Zhanna Santos Age: 72 yrs Sex: Female : 1945 Arrival Date: 09/27/2018 Time: 16:10 Bed 15 Private MD: Macario Varela V ED Physician Lisandro Dinero HPI: 09/27 17:44 This 72 yrs old Female presents to ER via Ambulatory with complaints of Chest pm1 Tightness, Abdominal Pain. 17:45 The patient or guardian reports chest pain that is located primarily in the mid-sternal pm1 area. Onset: 4 day(s) ago. The pain radiates to back. Associated signs and symptoms: Pertinent positives: abdominal pain, Epigastric area, Pain reproduced with deep inspiration, no shortness of breath, Pertinent negatives: cough, diaphoresis, headache, nausea, vomiting. The chest pain is described as a pressure. Duration: The patient or guardian reports a single episode, that is still ongoing. Modifying factors: The symptoms are alleviated by nothing. the symptoms are aggravated by deep breath. Severity of pain: in the emergency department the pain is unchanged. The patient has not experienced similar symptoms in the past. The patient has not recently seen a physician. Historical: - Allergies: 16:17 PENICILLINS; aa5 - PMHx: 16:17 Diabetes - NIDDM; Hypertension; irregular heartbeat; aa5 16:17 Mitral valve prolapse; aa5 - PSHx: 16:17 Hysterectomy; Appendectomy; 2 bladder surgeries; aa5 - Immunization history:: Adult Immunizations up to date. - Social history:: Smoking status: Patient/guardian denies using tobacco. - Ebola Screening: : No symptoms or risks identified at this time. ROS: 17:45 Constitutional: Negative for fever, chills, and weight loss, Eyes: Negative for injury, pm1 pain, redness, and discharge, ENT: Negative for injury, pain, and discharge, Neck: Negative for injury, pain, and swelling. 17:45 Respiratory: Negative for shortness of breath, cough, wheezing, and pleuritic chest pain. 17:45 Back: Negative for injury and pain, : Negative for injury, bleeding, discharge, and swelling, MS/Extremity: Negative for injury and deformity, Skin: Negative for injury, rash, and discoloration, Neuro: Negative for headache, weakness, numbness, tingling, and seizure. 17:45 Cardiovascular: Positive for chest pain, Negative for edema, orthopnea, palpitations. 17:45 Abdomen/GI: Positive for abdominal pain, of the epigastric area, Negative for nausea, vomiting, and diarrhea. Exam: 17:45 Constitutional: This is a well developed, well nourished patient who is awake, alert, pm1 and in no acute distress. Head/Face: Normocephalic, atraumatic. Eyes: Pupils equal round and reactive to light, extra-ocular motions intact. Lids and lashes normal. Conjunctiva and sclera are non-icteric and not injected. Cornea within normal limits. Periorbital areas with no swelling, redness, or edema. ENT: Nares patent. No nasal discharge, no septal abnormalities noted. Tympanic membranes are normal and external auditory canals are clear. Oropharynx with no redness, swelling, or masses, exudates, or evidence of obstruction, uvula midline. Mucous membranes moist. Neck: Trachea midline, no thyromegaly or masses palpated, and no cervical lymphadenopathy. Supple, full range of motion without nuchal rigidity, or vertebral point tenderness. No Meningismus. Chest/axilla: Normal chest wall appearance and motion. Nontender with no deformity. No lesions are appreciated. Cardiovascular: Regular rate and rhythm with a normal S1 and S2. No gallops, murmurs, or rubs. Normal PMI, no JVD. No pulse deficits. Respiratory: Lungs have equal breath sounds bilaterally, clear to auscultation and percussion. No rales, rhonchi or wheezes noted. No increased work of breathing, no retractions or nasal flaring. Abdomen/GI: Soft, non-tender, with normal bowel sounds. No distension or tympany. No guarding or rebound. No evidence of tenderness throughout. Back: No spinal tenderness. No costovertebral tenderness. Full range of motion. Skin: Warm, dry with normal turgor. Normal color with no rashes, no lesions, and no evidence of cellulitis. MS/ Extremity: Pulses equal, no cyanosis. Neurovascular intact. Full, normal range of motion. 17:45 Neuro: Orientation: is normal, Motor: is normal, moves all fours, Sensation: is normal, no obvious gross deficits, Gait: is steady, at a normal pace, without difficulty. Vital Signs: 16:17 BP 141 / 84; Pulse 65; Resp 18 S; Temp 99.3(O); Pulse Ox 96% on R/A; Weight 91.63 kg aa5 (R); Height 5 ft. 7 in. (170.18 cm) (R); Pain 3/10; 17:45 BP 147 / 62; Pulse 56; Resp 16; Temp 98.1; Pulse Ox 99% on R/A; Pain 3/10; ch 18:31 BP 126 / 82; Pulse 56; Resp 14; Pulse Ox 99% on R/A; Pain 1/10; ch 19:32 BP 139 / 66; Pulse 53; Resp 16; Temp 98.2; Pulse Ox 98% on R/A; Pain 0/10; ak1 16:17 Body Mass Index 31.64 (91.63 kg, 170.18 cm) aa5 MDM: 16:20 Patient medically screened. pm1 17:49 Data reviewed: vital signs. Data interpreted: Pulse oximetry: on room air is 96 %. pm1 Interpretation: normal. 19:10 Counseling: I had a detailed discussion with the patient and/or guardian regarding: the pm1 historical points, exam findings, and any diagnostic results supporting the discharge/admit diagnosis, lab results, radiology results, the need for outpatient follow up, to return to the emergency department if symptoms worsen or persist or if there are any questions or concerns that arise at home. 09/27 16:42 Order name: Basic Metabolic Panel; Complete Time: 17:33 pm1 09/27 16:42 Order name: CBC with Diff; Complete Time: 17:43 pm1 09/27 16:42 Order name: LFT's; Complete Time: 17:33 pm1 09/27 16:42 Order name: Magnesium; Complete Time: 17:33 pm1 09/27 16:42 Order name: NT PRO-BNP; Complete Time: 17:33 pm1 09/27 16:42 Order name: PT-INR; Complete Time: 17:43 pm1 09/27 16:42 Order name: Troponin (emerg Dept Use Only); Complete Time: 17:33 pm1 09/27 16:42 Order name: XRAY Chest (1 view); Complete Time: 17:33 pm1 09/27 16:42 Order name: EKG; Complete Time: 16:43 pm1 09/27 16:42 Order name: Cardiac monitoring; Complete Time: 17:05 pm1 09/27 16:42 Order name: EKG - Nurse/Tech; Complete Time: 17:08 pm09/27 16:42 Order name: Lipase; Complete Time: 17:33 pm1 09/27 17:35 Order name: CT Chest For PE Angio; Complete Time: 18:43 pm1 09/27 16:42 Order name: IV Saline Lock; Complete Time: 17:05 pm09/27 16:42 Order name: Labs collected and sent; Complete Time: 17:05 pm09/27 16:42 Order name: O2 Per Protocol; Complete Time: 17:05 pm09/27 16:42 Order name: O2 Sat Monitoring; Complete Time: 17:05 pm1 EC:23 Rate is 55 beats/min. Rhythm is regular, Sinus bradycardia with No ectopy. No Q waves. pm1 T waves are Normal. No ST changes noted. Clinical impression: Sinus bradycardia. Administered Medications: 19:30 Drug: GI Cocktail without - (Maalox Suspension 30 ml, Lidocaine Liquid 2 % 15 ak1 ml) Route: PO; 19:30 Follow up: Response: No adverse reaction; Medication administered at discharge. ak1 Disposition: 09/28 07:29 Co-signature as Attending Physician, Lisandro Dinero MD. rn Disposition: 09/27/18 19:11 Discharged to Home. Impression: Chest pain, unspecified. - Condition is Stable. - Discharge Instructions: Nonspecific Chest Pain. - Prescriptions for Pepcid 20 mg Oral Tablet - take 1 tablet by ORAL route every 12 hours for 10 days; 20 tablet. - Medication Reconciliation Form, Thank You Letter, Antibiotic Education, Prescription Opioid Use form. - Follow up: Emergency Department; When: As needed; Reason: Worsening of condition. Follow up: Private Physician; When: 2 - 3 days; Reason: Recheck today's complaints, Continuance of care, Re-evaluation by your physician. - Problem is new. - Symptoms have improved. Signatures: Dispatcher [employer] EDShaunna Emanuel, Lisandro Bobo RN, ch, MD MD rn Calderon, Audri, RN RN aa5 Rica Evans RN RN ak1 Kendell Millan NP NUMERICAL CONTROL NESTING OPERATOR pm1 Corrections: (The following items were deleted from the chart) 09/27 16:19 16:17 PMHx: Prolapsed mitral valve; aa5 aa5 19:32 19:11 09/27/2018 19:11 Discharged to Home. Impression: Chest pain, unspecified. ak1 Condition is Stable. Forms are Medication Reconciliation Form, Thank You Letter, Antibiotic Education, Prescription Opioid Use. Follow up: Emergency Department; When: As needed; Reason: Worsening of condition. Follow up: Private Physician; When: 2 - 3 days; Reason: Recheck today's complaints, Continuance of care, Re-evaluation by your physician. Problem is new. Symptoms have improved. pm1
[2018-09-27] MEDS ORDERED: MAGNE/ALUM HYDROXD 30 ML UCUP ONE (19:32)
[2018-09-27] MEDS ORDERED: LIDOCAINE VISCOUS 2% SOLN 15 ML UDC ONE (19:32)
--- NOTE | 2018-09-28 09:03 | EKG ---
Test Date: 2018-09-27 Test Time: 16:20:39 Customer Experience Specialist: NAS MEASUREMENT RESULTS: Intervals: Rate: 55 TN: 178 QRSD: 78 QT: 422 QTc: 403 [place]: P: 68 TN: 178 QRS: 70 T: 68 INTERPRETIVE STATEMENTS: Sinus bradycardia Cannot rule out Anterior infarct, age undetermined Abnormal ECG Compared to ECG 01/22/2008 18:58:29 Myocardial infarct finding now present Sinus rhythm no longer present Electronically Signed On 09-28-18 09:00:51 CDT by Sean Batista
== END 2018-09-27 19:32 | disposition home or self-care (01) ==
LOC: ER 16:06
DX: R07.9 Chest pain, unspecified (principal); I10 Essential (primary) hypertension; Z88.0 Allergy status to penicillin
CPT/HCPCS: 93005; 85025; 80048; 36415; 83735; 85610; 80076; 84484; 83690; 83880; 71275; 71045; 99285; Q9967

== ENCOUNTER 2022-12-15 01:25 | Observation (INO) | payer OTHER ==
--- OUTSIDE RECORDS SUMMARY | 2022-12-15 01:29 | XMS REPORT | Continuity of Care Document ---
:1945 Author Organization [facility] t Address [address] [facility] [address] [place] [address] Care Team Providers Name Role Phone Macario Varela MD Primary Care Physician Lobito Green Attending Clinician Unavailable Gabo Horan Attending Clinician Unavailable Eduin Nur Attending Clinician Unavailable Idalia Varela MD Attending Clinician GC_TNC_Cherches_I Attending Clinician Unavailable SONIDO BEAUCHAMP Attending Clinician Unavailable GC_SWHATBIC_Lotze_Pe Attending Clinician Unavailable Lobito Green Admitting Clinician Unavailable Macario Varela V Admitting Clinician Unavailable Physician, No Primary or Family Admitting Clinician Unavaila ble GC_TNC_Cherches_I Admitting Clinician Unavailable GC_SWHATBIC_Lotze_Pe Admitting Clinician Unavailable Payers Payer Name Policy Type Policy Number Effective Date Expiration Date [facility] [id number] 2021 (MEDICARE 00:00:00 REPLACEMENT/ADVANTA GE - PPO) [employer] (MEDICARE [id number] REPLACEMENT/ADVANTA GE - PPO) Problems Condition Condition Condition Status Onset Resolution Last Treating Co mments Source Name Details Category Date Date Treatment Clinician Date Paroxysmal Paroxysmal Disease Active M ethodi atrial atrial 04-23 st fibrillati fibrillati 00:00: Ho spita on on 00 l Sleep Sleep Disease Active Methodi apnea apnea st Hospita l Hypertensi Hypertensi Disease Active M ethodi on on st Hospita l Allergies, Adverse Reactions, Alerts Allergy Allergy Status Severity Reaction(s) Onset Inactive Treating Comm ents Source Name Type Date Date Clinician Penicill DA Active MO SWELLING [facility] ins FEET AND 8 Clear ITCHY 00:00: Alves 00 [facility] Penicill DA Active MO SWELLING [facility] ins FEET AND 7 Clear ITCHY 00:00: Alves [facility] Penicill DA Active MO SWELLING [facility] ins FEET AND 7 Clear ITCHY 00:00: Alves [facility] Penicill DA Active SV RESP. [facility] ins DISTRESS/SWE 12-07 Anum r ELING 00:00: Alves 00 [facility] Penicill Propensi Active Anaphylaxis M ethodi ins ty to 12-22 st adverse 00:00: Hospita reaction 00 l s to drug Family History Family Member Diagnosis Comments Start Date Stop Date Source Natural brother Other [facility] Natural father Colon cancer [facility] Natural mother Diabetes type II Meth [facility]Select at [place] Natural sister Brain cancer [facility] Social History Social Habit Start Date Stop Date Quantity Comments Source Gender identity 2021-08-11 Identifies as Method ist 09:41:03 female gender [facility] (finding) Sexual orientation Method t [facility] Alcohol intake 2021-07-11 2021-07-11 Ex-drinker [facility]andaen 00:00:00 00:00:00 (finding) Hospital History of Social 2021-07-11 2021-07-[address] function 00:00:00 00:00:00 Hospital Alcohol Comment 2017-05-15 2017-05-15 Very rare [facility] 00:00:00 00:00:00 Hospital Tobacco use and 2017-05-15 2017-05-15 Smokeless tobacco Me [facility]odist exposure 00:00:00 00:00:00 non-user Hospital Sex Assigned At [birth year] F [facility] 00:00:00 00:00:00 Hospital Smoking Status Start Date Stop Date Source Never smoked tobacco [facility] Medications Ordered Filled Start Stop Current Ordering Indication Dosage Frequency Signature Comments Components Source Medication Medication Date Date Medication? Clinician (SIG) Name Name losartan Yes [id number] 25mg QD Take 25 mg Methodi (COZAAR) 25 3-[address] MG tablet 09:47: daily. Hospit a 32 l losartan 2021-0 Yes [id number] 25mg QD Take 25 mg [facility]i (COZAAR) 25 3-[address] MG tablet 09:47: daily. Hospit a 32 l losartan 2021-0 Yes [id number] 25mg QD Take 25 mg Methodi (COZAAR) 25 3-[address] MG tablet 09:47: daily. Hospit a 32 l spironolact 0 Yes Method i one 3- st (ALDACTONE) 00:00: Hospit a 50 MG 00 l tablet spironolact 0 Yes Method i one 3- st (ALDACTONE) 00:00: Hospit a 50 MG 00 l tablet spironolact 2021-0 Yes Method i one 3-04 st (ALDACTONE) 00:00: Hospit a 50 MG 00 l tablet Rybelsus 3 Yes TAKE 1 Metho di mg tablet 1-[address] 00:00: MOUTH ONCE Hospita 00 DAILY AT l LEAST 30 MINUTES BEFORE FIRST FOOD, BEVERAGE OR OTHER ORAL MEDICINE Rybelsus 3 2021-0 Yes TAKE 1 Metho di mg tablet 1-[address] 00:00: MOUTH ONCE Hospita 00 DAILY AT l LEAST 30 MINUTES BEFORE FIRST FOOD, BEVERAGE OR OTHER ORAL MEDICINE Rybelsus 3 2021-0 Yes TAKE 1 Metho di mg tablet 1-[address] 00:00: MOUTH ONCE Hospita 00 DAILY AT l LEAST 30 MINUTES BEFORE FIRST FOOD, BEVERAGE OR OTHER ORAL MEDICINE ezetimibe 0 Yes Methodi (ZETIA) 10 1-13 st mg tablet 00:00: Hospita 00 l ezetimibe 2021-0 Yes Methodi (ZETIA) 10 1-13 st mg tablet 00:00: Hospita 00 l ezetimibe 2021-0 Yes Methodi (ZETIA) 10 1-13 st mg tablet 00:00: Hospita 00 l hydrOXYzine 2019-04 Yes Method i (ATARAX) 25 2-30 st MG tablet 00:00: Hospita 00 l hydrOXYzine 2019-04 Yes Method i (ATARAX) 25 2-30 st MG tablet 00:00: Hospita 00 l hydrOXYzine 2019-04 Yes Method i (ATARAX) 25 2-30 st MG tablet 00:00: Hospita 00 l metoprolol Yes [id number] 50mg QD Take 50 mg Methodi tartrate [address] (LOPRESSOR) 11:46: daily. Hosp damian 50 mg 31 l tablet metoprolol Yes [id number] 50mg QD Take 50 mg Methodi tartrate [address] (LOPRESSOR) 11:46: daily. Hosp damian 50 mg 31 l tablet metoprolol Yes [id number] 50mg QD Take 50 mg Methodi tartrate -[address] (LOPRESSOR) 11:46: daily. Hosp damian 50 mg 31 l tablet TURMERIC Yes [id number] Meth sarai (CURCUMIN 05-19 st [facility]) 11:45: Hospita 58 l TURMERIC Yes [id number] Meth sarai (CURCUMIN 05-19 st [facility]) 11:45: Hospita 58 l TURMERIC 2017-0 Yes [id number] Meth sarai (CURCUMIN 05-19 st [facility]) 11:45: Hospita 58 l dapaglifloz 2016-04 Yes TAKE 1 Meth sarai in - TABLET BY ([facility]) 00:00: MOUTH ONCE Ho spita 10 mg 00 DAILY l tablet (STOP JARDIANCE ) dapaglifloz 2016-04 Yes TAKE 1 Meth sarai in - TABLET BY [facility]) 00:00: MOUTH ONCE Ho spita 10 mg 00 DAILY l tablet (STOP JARDIANCE ) dapaglifloz 2016-04 Yes TAKE 1 Meth sarai in 1- TABLET BY ([facility]) 00:00: MOUTH ONCE Ho spita 10 mg 00 DAILY l tablet (STOP JARDIANCE ) metoprolol Yes Methodi succinate 04-23 st XL 00:00: Hospita (TOPROL-XL) 00 l 100 mg 24 hr tablet metoprolol Yes Methodi succinate 04-23 st XL 00:00: Hospita (TOPROL-XL) 00 l 100 mg 24 hr tablet metoprolol Yes Methodi succinate 04-23 st XL 00:00: Hospita (TOPROL-XL) 00 l 100 mg 24 hr tablet Immunizations Ordered Immunization Filled Immunization Date Status Commen ts Source Name Name PFIZER COVID-19 MRNA 2021-02-14 Completed Meth odist VACCINATION 00:00:00 [facility] PFIZER COVID-19 MRNA 2021-02-14 Completed Meth odist VACCINATION 00:00:00 [facility] PFIZER COVID-19 MRNA 2021-02-14 Completed Meth odist VACCINATION 00:00:00 [facility] PFIZER COVID-19 MRNA 2020-06-04 Completed Meth odist VACCINATION 00:00:00 [facility] PFIZER COVID-19 MRNA 2020-06-04 Completed Meth odist VACCINATION 00:00:00 [facility] PFIZER COVID-19 MRNA 2020-06-04 Completed Meth odist VACCINATION 00:00:00 [facility] PFIZER COVID-19 MRNA 2020-05-14 Completed Meth odist VACCINATION 00:00:00 [facility] PFIZER COVID-19 MRNA 2020-05-14 Completed Meth odist VACCINATION 00:00:00 [facility] PFIZER COVID-19 MRNA 2020-05-14 Completed Meth odist VACCINATION 00:00:00 Hospital Procedures Procedure Date / Time Performed Performing Clinician Sour e [id number] 2022-11-28 00:00:00 CHAAB.01 [facility] [id number] 2022-11-28 00:00:00 CHAAB.01 [facility] [id number] 2022-11-28 00:00:00 CHAAB.01 [facility] [id number] 2022-11-28 00:00:00 CHAAB.01 [facility] Plan of Care Planned Activity Planned Date Details Comments Source Future Scheduled 2022-11-29 65+ PNEUMOCOCCAL Methodi [facility] Test 05:37:45 VACCINE (1 - PCV) [code = 65+ PNEUMOCOCCAL VACCINE (1 - PCV)] Future Scheduled 2022-11-29 Hepatitis C screening [facility] Test 05:37:45 (procedure) [code = 448114344] Future Scheduled 2022-11-29 SHINGLES VACCINES (1 Met [facility] Test 05:37:45 of 2) [code = SHINGLES VACCINES (1 of 2)] Future Scheduled 2022-11-29 COVID-19 VACCINE (4 - Me [facility] Test 05:37:45 Pfizer series) [code = COVID-19 VACCINE (4 - Pfizer series)] Future Scheduled 2022-11-29 ZZZ INFLUENZA VACCINE [facility] Test 05:37:45 [code = ZZZ INFLUENZA VACCINE] Future Scheduled 2022-11-29 65+ [facility]AL [facility] 05:37:45 VACCINE (1 - PCV) [code = 65+ PNEUMOCOCCAL VACCINE (1 - PCV)] Future Scheduled 2022-11-29 [facility] C screening [facility] Test 05:37:45 (procedure) [code = [id number]] Future Scheduled 2022-11-29 SHINGLES VACCINES (1 Met [facility] Test 05:37:45 of 2) [code = SHINGLES VACCINES (1 of 2)] Future Scheduled 2022-11-29 COVID-19 VACCINE (4 - [facility] Test 05:37:45 Pfizer series) [code = COVID-19 VACCINE (4 - Pfizer series)] Future Scheduled 2022-11-29 INFLUENZA VACCINE Method [facility] Hospital Test 05:37:45 [code = INFLUENZA VACCINE] Future Scheduled 2022-10-28 65+ [facility] 17:01:28 VACCINE (1 - PCV) [code = 65+ PNEUMOCOCCAL VACCINE (1 - PCV)] Future Scheduled 2022-10-28 Hepatitis C screening [facility] Test 17:01:28 (procedure) [code = 138680580] Future Scheduled 2022-10-28 SHINGLES VACCINES (1 Met [facility] Test 17:01:28 of 2) [code = SHINGLES VACCINES (1 of 2)] Future Scheduled 2022-10-28 COVID-19 VACCINE (4 - [facility] Test 17:01:28 Pfizer series) [code = COVID-19 VACCINE (4 - Pfizer series)] Future Scheduled 2022-10-28 INFLUENZA VACCINE [facility] Test 17:01:28 [code = INFLUENZA VACCINE] Encounters Start End Encounter Admission Attending Care Care Encounter Source Date/Time Date/Time Type Type Clinicians Facility Department ID 2022-11-28 2022-11-29 Inpatient RANDALL Henderson INTE [id number] [facility] 11:39:00 12:56:[address] 2022-11-24 2022-11-24 Outpatient RANDALL Henderson 3DAY [id number] [facility] 08:00:00 09:00:00 [place] 61 [facility] 2022-11-06 2022-11-06 Outpatient [facility] [id number] [facility] 09:05:00 09:05:00 Gabo 03 [facility] 2022-10-31 2022-10-31 Outpatient NICKO Nur, [facility] [id number] [facility] 05:43:00 05:43:00 Eduin 01 [facility] 2022-10-27 2022-10-27 Transcribe Avery, 1.2.840.1 [id number] Methodi 00:00:00 00:00:00 Orders Mauli [address]1.[address] 3.430.2.7 Hospit a .3.822090 l .8 2022-10-27 2022-10-27 Transcribe Avery, 1.2.840.1 [id number] Methodi 00:00:00 00:00:00 Orders Mauli 83441.1.[address] 3.430.2.7 Hospit a .3.872502 l .8 2021-10-03 2021-10-03 Outpatient GC_TNC_Cher PRIV PRIV 502 [facility] 11:23:00 11:23:00 ches_I [id number] Medica l 2021-09-14 2021-09-14 Outpatient GC_TNC_Cher PRIV PRIV 502 [facility] 03:12:00 03:12:00 ches_I [id number] Medica l 2021-08-10 2021-08-10 Outpatient SONIDO BEAUCHAMP [facility] [id number] [place] 00:00:00 00:00:[address] 2021-08-10 2021-08-10 Outpatient SONIDO BEAUCHAMP [facility] [id number] [place] 00:00:00 00:00:[address] 2021-07-11 2021-07-11 Outpatient [facility] [id number] [place] 00:00:00 00:00:[address] 2021-07-11 2021-07-11 Outpatient SONIDO BEAUCHAMP [facility] [id number] [place] 00:00:00 00:00:[address] 2021-03-31 2021-03-31 Outpatient GC_JJTBIC PRIV PRIV 502 [id number] [facility] 02:13:00 02:13:00 _Lotze_Pe [id number] Medi james 2020-06-04 2020-06-04 Outpatient [facility] [id number] [place] 00:00:00 00:00:[address] 2020-05-14 2020-05-14 Outpatient [facility] [id number] [place] 00:00:00 00:00:[address] 2019-07-09 2019-07-09 Outpatient GC_SWMOUSTAPHATBIC PRIV PRIV 502 [id number] [facility] 11:50:00 11:50:00 _Lotze_Pe [id number] [facility] Results Test Description Test Time Test Comments Results Result Comments Source GLUCOSE BEDSIDE 2022-11-29 13:14:00 Test Item Value Reference Range Interpretation Comme nts GLUCOSE BEDSIDE (test code = 154 MG/DL 70-110 H Performed by certified cracking machine operator at [facility]) [facility] BASIC METABOLIC [id number] 04:22:00 Test Item Value Reference Range Interpretation Comments SODIUM (test code = 138 mEq/L 134-147 N NA) POTASSIUM (test code 3.9 mEq/L 3.4-5.0 N = K) CHLORIDE (test code 106 mEq/L 100-108 N = CL) CARBON DIOXIDE (test 23 mEq/l 21-33 N code = CO2) ANION GAP (test code 13 0-20 N = GAP) GLUCOSE (test code = 151 mg/dL 70-110 H GLU) BLOOD UREA NITROGEN 16 mg/dL 7-18 N (test code = BUN) GLOMERULAR 65.4 70-80 L The Glomerular FILTRATION RATE Filtration R ate is a (test code = GFR) calculated parameterbased on serum Creatinine, pat ient age and sex. GFR va luesless than 60 mL/min/ 1.73 square meters a re indicative ofCh ronic Kidney Disease. Values less than 15 mL/min/1.73squa re meters indicate Kidney failure. The calculation forGFR is based on the CKD-EPI (2020) calculat ion. This formulais race indifferent and is the recommended for george for GFRby the [facility] Kidney Foundati on for Adults.The GFR will not calculate if th e sex is unknown or if thepatient's ag e is <18 years. CREATININE (test 0.9 mg/dL 0.6-1.3 N code = CREAT) CALCIUM (test code = 9.1 mg/dL 8.0-10.5 N CA) CBC W/AUTO [id number] 04:07:00 Test Item Value Reference Range Interpretation Comments WHITE BLOOD CELL (test code = 10.8 x10 3/uL 4.5-11.0 N WBC) RED BLOOD CELL (test code = 4.48 x10 6/uL 3.54-5.02 N RBC) HEMOGLOBIN (test code = HGB) 14.1 g/dL 11.0-15.0 N HEMATOCRIT (test code = HCT) 41.3 % 33.0-45.0 N MEAN CELL VOLUME (test code = 92.2 fL 81.0-99.0 N MCV) MEAN CELL HGB (test code = MCH) 31.5 pg 27.0-33.0 N MEAN CELL HGB CONCETRATION 34.1 g/dL 33.0-37.0 N (test code = MCHC) RED CELL DISTRIBUTION WIDTH CV 12.4 % 11.5-14.5 N (test code = RDW) RED CELL DISTRIBUTION WIDTH SD 42.2 fL 37.0-54.0 N (test code = RDW-SD) PLATELET COUNT (test code = 148 x10 3/uL 150-400 L PLT) MEAN PLATELET VOLUME (test code 9.9 fL 7.0-9.0 H = MPV) NEUTROPHIL % (test code = NT%) 87.0 % 56.0-77.0 H IMMATURE GRANULOCYTE % (test 0.5 % 0.0-2.0 N code = IG%) LYMPHOCYTE % (test code = LY%) 4.9 % 14.0-32.0 L MONOCYTE % (test code = MO%) 7.4 % 4.8-9.0 N EOSINOPHIL % (test code = EO%) 0.0 % 0.3-3.7 L BASOPHIL % (test code = BA%) 0.2 % 0.0-2.0 N NUCLEATED RBC % (test code = 0.0 % 0-0 N NRBC%) NEUTROPHIL # (test code = NT#) 9.43 x10 3/uL 2.0-7.6 H IMMATURE GRANULOCYTE # (test 0.05 x10 3/uL 0.00-0.03 H code = IG#) LYMPHOCYTE # (test code = LY#) 0.53 x10 3/uL 1.0-3.8 L MONOCYTE # (test code = MO#) 0.80 x10 3/uL 0.1-0.8 N EOSINOPHIL # (test code = EO#) 0.00 x10 3/uL 0.0-0.2 N BASOPHIL # (test code = BA#) 0.02 x10 3/uL 0.0-0.2 N NUCLEATED RBC # (test code = 0.00 x10 3/uL 0.0-0.1 N NRBC#) MANUAL DIFF REQUIRED (test code NO = MDIFF) [id number] 12:28:00 Test Item Value Reference Range Interpretation Comments ACT-ISTAT (test code 432 SEC 74-137 H Perform ed by certified = ACTI) cracking machine operator at [facility] GLUCOSE [id number] 11:11:00 Test Item Value Reference Range Interpretation Comments GLUCOSE BEDSIDE (test 125 MG/DL 70-110 H Perfor med by certified code = GLUBED) cracking machine operator at [facility] - XR CHEST 1 [id number] 00:00:[facility] 1945 Sex: F FAX: Lobito Chowdhury MD [phone] [place]: St: ADM FAX: Eduin Farfan MD [phone] -------- Name: ZHANNA SANTOS [facility] : 1945 Age/S: 77/F [address] [place] [address] Unit #: [id number] Loc: G.[address] [place] [address] Phys: Lobito Green MD Acct: [id number] Dis Date: Status: ADM IN PHONE #: [phone] Exam Date: 11/28/2022 1514 FAX #: [phone] Reason: C/O SOB EXAMS: CPT CODE: [id number] XR CHEST1 V [id number] PROCEDURE INFORMATION: Exam: XR Chest Exam date and time: 11/28/2022 3:10 PM Age: 77 years old Clinical indication: Other: C/O SOB TECHNIQUE: Imaging protocol: Radiologic exam of the chest. Views: 1 view. COMPARISON: CR XR CHEST 2 V 07/29/2022 15:24 FINDINGS: Tubes, catheters and devices: NoneLungs: Lungs are clear without interstitial changes or consolidation. Pleural spaces: There is no pleural effusion or pneumothorax. Heart/Mediastinum: The cardiomediastinal silhouette is within normallimits. Bones/joints: There are no acute bony abnormalities. IMPRESSION: No acute cardiopulmonary findings. at 1628 Reported and signed by: Brandy Ricks M.D. CC: Lobito Green MD; Eduin Nur MD Technologist: RT Daryl(Oscar) Trnscrd Date/Time/By: 11/28/2022 (1627) : By: [email or web address] Orig Print D/T: S: 11/28/2022 (5536) PAGE 1 Signed ReportCOVID 19 Asymptomatic IH [id number] 17:00:00 Test Item Value Reference Range Interpretation Comments COVID 19 Asymptomatic Negative Negative A nega tive result is IH AG (test code = presumpti ve and should COVNONPUIAG) be confirmedwit h an FDA authorized mole cular assay, if neces johnson forpatient rocio oliveira.A positive result does not rule out co-inf ections withother patho gens.This test detects aurelio th viable (live) and non-viable,SARS -CoV, and SARS-CoV-2. Mimi t performance dep ends on theamount of vi kamala (antigen) in th e sample.This mimi t has not been FDA cleare d or approved; the t est hasbeen authori zed by FDA under an Em ergency Use Authorizati on(EUA) for use by labo ratories certified under the CLIA thatmeet the requirements to perform moderate, high or waivedcomplexit y tests. BASIC METABOLIC [id number] 15:52:00 Test Item Value Reference Range Interpretation Comments SODIUM (test code = 138 mEq/L 134-147 N NA) POTASSIUM (test code 4.3 mEq/L 3.4-5.0 N = K) CHLORIDE (test code 105 mEq/L 100-108 N = CL) CARBON DIOXIDE (test 26 mEq/l 21-33 N code = CO2) ANION GAP (test code 12 0-20 N = GAP) GLUCOSE (test code = 128 mg/dL 70-110 H GLU) BLOOD UREA NITROGEN 12 mg/dL 7-18 N (test code = BUN) GLOMERULAR 65.4 70-80 L The Glomerular FILTRATION RATE Filtration R ate is a (test code = GFR) calculated parameterbased on serum Creatinine, pat ient age and sex. GFR va luesless than 60 mL/min/ 1.73 square meters a re indicative ofCh ronic Kidney Disease. Values less than 15 mL/min/1.73squa re meters indicate Kidney failure. The calculation forGFR is based on the CKD-EPI (2020) calculat ion. This formulais race indifferent and is the recommended for george for GFRby the Natio nal Kidney Foundati on for Adults.The GFR will not calculate if th e sex is unknown or if thepatient's ag e is <18 years. CREATININE (test 0.9 mg/dL 0.6-1.3 N code = CREAT) CALCIUM (test code = 9.7 mg/dL 8.0-10.5 N CA) [id number] 15:52:00 Test Item Value Reference Range Interpretation Comments ALBUMIN (test code = ALB) 4.00 g/dL 3.4-5.0 N B-TYPE NATRIURETIC [id number] 15:52:00 Test Item Value Reference Range Interpretation Comments B-TYPE NATRIURETIC PEPTIDE (test 45.0 PG/ML 0-100 N code = BNP) CBC W/AUTO [id number] 15:30:00 Test Item Value Reference Range Interpretation Comments WHITE BLOOD CELL (test code = 8.5 x10 3/uL 4.5-11.0 N WBC) RED BLOOD CELL (test code = 5.00 x10 6/uL 3.54-5.02 N RBC) HEMOGLOBIN (test code = HGB) 16.0 g/dL 11.0-15.0 H HEMATOCRIT (test code = HCT) 47.8 % 33.0-45.0 H MEAN CELL VOLUME (test code = 95.6 fL 81.0-99.0 N MCV) MEAN CELL HGB (test code = MCH) 32.0 pg 27.0-33.0 N MEAN CELL HGB CONCETRATION 33.5 g/dL 33.0-37.0 N (test code = MCHC) RED CELL DISTRIBUTION WIDTH CV 12.4 % 11.5-14.5 N (test code = RDW) RED CELL DISTRIBUTION WIDTH SD 43.6 fL 37.0-54.0 N (test code = RDW-SD) PLATELET COUNT (test code = 198 x10 3/uL 150-400 N PLT) MEAN PLATELET VOLUME (test code 9.8 fL 7.0-9.0 H = MPV) NEUTROPHIL % (test code = NT%) 69.2 % 56.0-77.0 N IMMATURE GRANULOCYTE % (test 0.5 % 0.0-2.0 N code = IG%) LYMPHOCYTE % (test code = LY%) 17.6 % 14.0-32.0 N MONOCYTE % (test code = MO%) 9.6 % 4.8-9.0 H EOSINOPHIL % (test code = EO%) 2.4 % 0.3-3.7 N BASOPHIL % (test code = BA%) 0.7 % 0.0-2.0 N NUCLEATED RBC % (test code = 0.0 % 0-0 N NRBC%) NEUTROPHIL # (test code = NT#) 5.87 x10 3/uL 2.0-7.6 N IMMATURE GRANULOCYTE # (test 0.04 x10 3/uL 0.00-0.03 H code = IG#) LYMPHOCYTE # (test code = LY#) 1.49 x10 3/uL 1.0-3.8 N MONOCYTE # (test code = MO#) 0.81 x10 3/uL 0.1-0.8 H EOSINOPHIL # (test code = EO#) 0.20 x10 3/uL 0.0-0.2 N BASOPHIL # (test code = BA#) 0.06 x10 3/uL 0.0-0.2 N NUCLEATED RBC # (test code = 0.00 x10 3/uL 0.0-0.1 N NRBC#) MANUAL DIFF REQUIRED (test code NO = MDIFF) PROTHROMBIN [id number] 15:25:00 Test Item Value Reference Range Interpretation Comments PROTHROMBIN TIME 11.9 SECONDS 9.3-12.9 N PATIENT (test code = PTP) INTERNATIONAL NORMAL 1.1 0.8-1.2 N TARGET INR BY RATIO (test code = INDICATIO N Indication INR) INR1. Prophylax is of venous thrombos is 2.0 - 3.0 (orthoped ic surgery), Proph ylaxis of venous throm bosis (other than hig h-risk surgery), Treat ment of Deep Vein Thrombosis/Pulm onary Embolism, Preve ntion of systemic emb olism - Tissue heart va lves, Acute Myocardia l Infarction (to prevent systemic emboli sm), Valvular heart disease, Atrial Fibrillation, Bileaflet mecha nical valve in aortic position.2. Mec hanical prosthetic valv es (high risk), 2. 5 - 3.5 Presence of Lup us Anticoagulant o r Antiphospholipi d Antibodies, Pre vention of systemic emb olism - Acute Myocardia l Infarction (to prevent recurrent infar ct). - XR CHEST 2 [id number] 00:00:00 [facility] JESSUPName: ZHANNA SANTOS : 1945 Sex: F FAX: Eduin Farfan MD [phone] [place]: St: PRE FAX: Lisbet Mead Name: ZHANNA SANTOS [facility] : 1945 Age/S: 77/F [address] [place] [address] Unit #: [id number] Loc: [place] [address] Phys: Lisbet Mead HEAVY CLEANER Acct: [id number] Dis Date: Status: PRE [facility] [place] [place] PHONE #: [phone] Exam Date: 11/24/20226 FAX #: [phone] Reason: PREOP EXAMS: CPT CODE: [id number] XR CHEST 2 V [id number] PROCEDURE INFORMATION: Exam: XR Chest Exam date and time: 11/24/2022 3:24 PM Age: 77 years old Clinical indication: Other: Preop TECHNIQUE: Imaging protocol: Radiologic exam of the chest. Views: 2 views. PA and Lateral COMPARISON: DX XR CHEST 2 V 10/30/2022 5:08 PM FINDINGS: Lungs: There are normal lung volumes without consolidation or interstitial opacities. Pleural spaces: Unremarkable. No pleural effusion. No pneumothorax. Heart/Mediastinum: The heart size is normal. The pulmonary vasculature is normal. The mediastinal contour is normal. The trachea is midline. Bones/joints: No acute abnormalityseen. IMPRESSION: No acute cardiopulmonary findings. at 1543 Reported and signed by: Don Medley M.D. CC: Eduin Nur MD; Lisbet Mead NP Technologist: CHRISTI Sanford) Trnscrd Date/Time/By: 11/24/2022 (154) : By: Monserrat Orig Print D/T: S: 11/24/2022 (7520) PAGE 1 Signed Report- CTA ABD PEL W [id number] 00:00:00 [facility] : 1945 Sex: F Name: ZHANNA SANTOS [facility] : 1945 Age/S: 76 / F [address] [place] [address] Unit #: [id number] Loc: [place] [address] Phys: Gabo Horan NP Acct: [id number] Dis Date: Status: DEP BECCA #: [phone] Exam Date: 11/06/2022 1220 FAX #: [phone] Reason: HTN EXAMS: CPT CODE: [id number] CTA ABD PEL W CONT 99784 PROCEDURE INFORMATION: Exam: CTA Heart And Coronary Arteries With Contrast Exam date and time: 11/06/2022 12:10 PM Age: 76 years old Clinical indication: Condition or disease; Other: HTN TECHNIQUE: Imaging protocol: CT angiography of the heart, coronary arteries, and bypass grafts (when present) with contrast including 3D image postprocessing. Standard prospective cardiac-gated CAC scoring protocol was used for image acquisition. Following intravenous contrast administration, ECG gated CTA was performed. 3D rendering (Not supervised by radiologist): MIP and/or 3D reconstructed images were created by the technologist. Radiation optimization: All CT scans at this facility use at least one of these dose optimization techniques: automated exposure control; mA and/orkV adjustment per patient size (includes targeted exams where dose is matched to clinical indication); or iterative reconstruction. Contrast material: ISOVUE 370; Contrast volume: 100 ml; Contrast route: INTRAVENOUS (IV); Pharmacological intervention: None. REPORTING DATA: Count of CT and Cardiac NMexams in prior 12 months: This patient has received 0 known CTs and 0 known cardiac nuclear medicinestudies in the 12 months prior to the current study. COMPARISON: DX XR CHEST 2 V 10/30/2022 5:08 PM FINDINGS: PHASE OF CARDIAC CYCLE MEASUREMENTS OBTAINED: 30% of the R-R interval Aortic valve morphology: Bicuspid Valve calcification: Moderate burden. Aortic valve calcium score: 1234 AORTIC ANNULAR MEASUREMENTS: Annular area: 390 mm2 Perimeter: 72 mm Max diameter: 27 mm Min diameter: 18 mm Annular/Subannular calcification: Mild burden Mitral annular calcification: Moderate burden Height of left mainabove annular plane: 15 mm Height of RCA above annular plane: [address] ridge above annularplane: 23 mm Sinus of Valsalva (left): 33 mm PAGE 1 Signed Report (CONTINUED) Name: ZHANNA SANTOS [facility] : 1945 Age/S: 76 / F [address] [place] [address] Blvd Unit #: [id number] Loc: [place] [address] Phys: Gabo Horan NP Acct: [id number] Dis Date: Status: DEP CLI PHONE #: [phone] Exam Date: 11/06/2022 1220 FAX #: [phone] Reason: HTN EXAMS: CPT CODE: [id number] CTA ABD PEL W CONT 73768 (Continued) Sinus of Valsalva (right): 32 mm Sinus of Valsalva (noncoronary): 36 mm Mid ascending aorta diameter: 37 mm LA chamber size: Normal size. Myocardium: No calcification or fatty metaplasia to suggest prior infarct. Coronary arteries: Mild burden of calcified coronary plaque. Pericardium: No thickening, calcification or effusion. IMPRESSION: Aortic root measurements provided for TAVR planning. Aortic annular area: 390 mm2 High risk aortic root features: Bicuspid aortic valve. PROCEDURE INFORMATION: Exam: CTA Chest With Contrast CTA Abdomen and Pelvis With Contrast Exam date and time: 11/06/2022 12:10 PM Age: 76 years old Clinical indication: Condition or disease; Other: HTN TECHNIQUE: Imaging protocol: Computed tomographic angiography of the chest with contrast. Exam focused on the arteries. Computed tomographic angiography of the abdomen and pelvis with contrast. Exam focused on the arteries. 3D rendering (Not supervised by radiologist): MIP and/or3D reconstructed images were created by the technologist. Radiation optimization: All CT scans at this facility use at least one of these dose optimization techniques: automated exposure control; mA and/or kV adjustment per patient size (includes targeted exams where dose is matched to clinical indication); or iterative reconstruction. Contrast material: ISOVUE 370; Contrast volume: 100 ml; Contrast route: INTRAVENOUS (IV); REPORTING DATA: Count of CT and Cardiac NM exams in prior 12 months: This patient has received 0 known CTs and 0 known cardiac nuclear medicine studies in the 12 months prior tothe current study. COMPARISON: DX XR CHEST 2 V 10/30/2022 5:08 PM FINDINGS: VASCULATURE: Pulmonary arteries: Normal. No pulmonary emboli. Aorta: No aortic aneurysm. No aortic dissection. PAGE 2 Signed Report (CONTINUED) Name: ZHANNA SANTOS [facility] : 1945 Age/S: 76 / F [address] [facility] Unit #: [id number] Loc: [place] [address] Phys: Gabo Horan [employer]ER Acct: [id number] Dis Date: Status: DEP CLI PHONE #: [phone] Exam Date: 11/06/2022 1220 FAX #: [phone] Reason: HTN EXAMS: CPT CODE: [id number] CTA ABD PEL W CONT 55543 (Continued) Celiac trunk and mesenteric arteries:No occlusion or significant stenosis. Renal arteries: No occlusion or significant stenosis. Right iliofemoral arteries: No occlusion or significant stenosis. Left iliofemoral arteries: No occlusion orsignificant stenosis. CHEST: Lungs: Unremarkable. No consolidation. No masses. Pleural spaces: Unremarkable. No pneumothorax. No pleural effusion. ABDOMEN AND PELVIS: Liver: No mass. Gallbladder and bile ducts: Unremarkable. No calcified stones. No ductal dilation. Pancreas: Unremarkable. No mass. Noductal dilation. Spleen: Unremarkable. No splenomegaly. Adrenal glands: Unremarkable. No mass. Kidneys and ureters: Unremarkable. No solid mass. No hydronephrosis. Stomach and bowel: Unremarkable. No obstruction. No mucosal thickening. Appendix: No evidence of appendicitis. Intraperitoneal space: Unremarkable. No free air. No significant fluid collection. Urinary bladder: Unremarkable. No mass. Reproductive: Unremarkable as visualized. Lymph nodes: Unremarkable. No enlarged lymph nodes. Bones/joints: Unremarkable. No acute fracture. Soft tissues: Unremarkable. IMPRESSION: Widely patent aorta and bilateral iliofemoral arteries without significant stenosis. COMMENTS: Unless otherwise specified, incidental findings do not require dedicated imaging and follow-up. at 0557 Reported and signed by: Lalito Harris M.D.PAGE 3 Signed Report (CONTINUED) Name: ZHANNA SANTOS [facility] : 1945 Age/S: 76 / F [address] [place] [address] Blvd Unit #: [id number] Loc: [place] [address] Phys: Gabo Horan NP Acct: [id number] Dis Date: Status: DEP CLI PHONE #: [phone] Exam Date: 11/06/2022 1220 FAX #: [phone] Reason: HTN EXAMS: CPT CODE: [id number] CTA ABD PEL W CONT 52177 (Continued) CC: Gabo Horan HEAV[employer] CLE[employer]ER; Eduin Nur MD Technologist:RT Rashard(R)(CT) CTDI: DLP: Trnscb Date/Time: 11/07/2022 (0557) [email or web address] Orig Print D/T: S: 11/07/2022 (0557) PAGE 4 Signed Report- CT ANGIO [id number] [facility] 1945 Sex: F Name: ZHANNA SANTOS [facility] : 1945 Age/S: 76 / F [address] [place] [address] Blvd Unit #:[id number] Loc: [place] [address] Phys: Gabo Horan [employer]ER Acct: [id number] Dis Date: Status: DEP CLIPHONE #: [phone] Exam Date: 11/06/2022 1220 FAX #: [phone] Reason: HTN EXAMS: CPT CODE: [id number] CT ANGIO CHEST 61857 PROCEDURE INFORMATION: Exam: CTA Heart And Coronary Arteries With Contrast Exam date and time: 11/06/2022 12:10 PM Age: 76 years old Clinical indication: Condition or disease; Other: HTN TECHNIQUE: Imaging protocol: CT angiography of the heart, coronary arteries, and bypass grafts (when present) with contrast including 3D image postprocessing. Standard prospective cardiac-ga miryam CAC scoring protocol was used for image acquisition. Following intravenous contrast administration, ECG gated CTA was performed. 3D rendering (Not supervised by radiologist): MIP and/or 3D reconstructed images were created by the technologist. Radiation optimization: All CT scans at this facility use at least one of these dose optimization techniques: automated exposure control; mA and/or kV adjustment per patient size (includes targeted exams where dose is matched to clinical indication); or iterative reconstruction. Contrast material: ISOVUE 370; Contrast volume: 100 ml; Contrast route: INTRAVENOUS (IV); Pharmacological intervention: None. REPORTING DATA: Count of CT and Cardiac NM exams in prior 12 months: This patient has received 0 known CTs and 0 known cardiac nuclear medicine studies in the 12 months prior to the current study. COMPARISON: DX XR CHEST 2 V 10/30/2022 5:08 PM FINDINGS: PHASE OF CARDIAC CYCLE MEASUREMENTS OBTAINED: 30% of the R-R interval Aortic valve morphology: Bicuspid Valve calcification: Moderate burden. Aortic valve calcium score: 1234 AORTIC ANNULAR MEASUREMENTS: Annular area: 390 mm2 Perimeter: 72 mm Max diameter: 27 mm Min diameter: 18 mm Annular/Subannular calcification: Mild burden Mitral annular calcification: Moderate burden Height of left main above annular plane: 15 mm Height of RCA above annular plane: [address] ridge above annular plane: 23mm Sinus of Valsalva (left): 33 mm PAGE 1 Signed Report (CONTINUED) Name: ZHANNA SANTOS [facility] : 1945 Age/S: 76 / F [address] [place] [address] Blvd Unit #: [id number] Loc: [place] [address] Phys: Gabo Horan [employer]ER Acct: [id number] Dis Date: Status: DEP CLI PHONE #: [phone] Exam Date: 11/06/2022 1220 FAX #: [phone] Reason: HTN EXAMS: CPT CODE: [id number] CT ANGIO CHEST 88841 (Continued) Sinus of Valsalva (right): 32 mm Sinus of Valsalva (noncoronary): 36 mm Mid ascending aortadiameter: 37 mm LA chamber size: Normal size. Myocardium: No calcification or fatty metaplasia to suggest prior infarct. Coronary arteries: Mild burden of calcified coronary plaque. Pericardium: No thi ckening, calcification or effusion. IMPRESSION: Aortic root measurements provided for TAVR planning.Aortic annular area: 390 mm2 High risk aortic root features: Bicuspid aortic valve. PROCEDURE INFORMATION: Exam: CTA Chest With Contrast CTA Abdomen and Pelvis With Contrast Exam date and time: 11/06/2022 12:10 PM Age: 76 years old Clinical indication: Condition or disease; Other: HTN TECHNIQUE: Imaging protocol: Computed tomographic angiography of the chest with contrast. Exam focused on the arteries. Computed tomographic angiography of the abdomen and pelvis with contrast.Exam focused on the arteries. 3D rendering (Not supervised by radiologist): MIP and/or 3D reconstructed images were created by the technologist. Radiation optimization: All CT scans at this facility use at least one of these dose optimization techniques: automated exposure control; mA and/or kV adjustment per patient size (includes targeted exams where dose is matched to clinical indication); or iterative reconstruction. Contrast material: ISOVUE 370; Contrast volume: 100 ml; Contrast route: INTRAVENOUS (IV); REPORTING DATA: Count of CT and Cardiac NM exams in prior 12 months: This patient has received 0 known CTs and 0 known cardiac nuclear medicine studies in the 12 months prior to the current study. COMPARISON: DX XR CHEST 2 V 10/30/2022 5:08 PM FINDINGS: VASCULATURE: Pulmonary arteries: Normal. No pulmonary emboli. Aorta: No aortic aneurysm. No aortic dissection. PAGE 2 Signed Report (CONTINUED) Name: ZHANNA SANTOS [facility] : 1945 Age/S: 76 / F [address] [place] [address] Blvd Unit #: [id number] Loc: [place] [address] Phys: Gabo Horan [employer]ER Acct: [id number] Dis Date: Status: DEPCLI PHONE #: [phone] Exam Date: 11/06/2022 1220 FAX #: [phone] Reason: HTN EXAMS: CPT CODE: [id number] CT ANGIO CHEST 03074 (Continued) Celiac trunk and mesenteric arteries: No occlusion or significant stenosis. Renal arteries: No occlusion or significant stenosis. Right iliofemoral arteries: No occlusion or significant stenosis. Left iliofemoral arteries: No occlusion or significant stenosis. CHEST: Lungs: Unremarkable. No consolidation. No masses. Pleural spaces: Unremarkable. No pneumothorax. No pleural effusion. ABDOMEN AND PELVIS: Liver: No mass. Gallbladder and bile ducts: Unremarkable. No calcified stones. No ductal dilation. Pancreas: Unremarkable. No mass. No ductal dilation. Spleen: Unremarkable. No splenomegaly. Adrenal glands: Unremarkable. No mass. Kidneys and ureters: Unremarkable. No solid mass. No hydronephrosis. Stomach and bowel: Unremarkable. No obstruction. No mucosal thickening. Appendix: No evidence of appendicitis. Intraperitoneal space: Unremarkable. No free air. No significant fluid collection. Urinary bladder: Unremarkable. No mass. Reproductive: Unremarkable as visualized. Lymph nodes: Unremarkable. No enlarged lymph nodes. Bones/joints: Unremarkable. No acute fracture. Soft tissues: Unremarkable. IMPRESSION: Widely patent aorta and bilateral iliofemoral arteries without significant stenosis. COMMENTS: Unless otherwise specified, incidental findings do not require dedicated imaging and follow-up. at 0557 Reported and signed by: Lalito Harris M.D. PAGE 3 Signed Report (CONTINUED) Name: ZHANNA SANTOS [facility] Barbara Alves : 1945 Age/S: 76 / F [address] [facility]: [id number] Loc: [place] [address] Phys: MarlineGabo HEAVY CLEANER Acct: [id number] Dis Date: Status: DEP CLI PHONE #: [phone] Exam Date: 11/06/2022 1220 FAX #: [phone] Reason: HTN EXAMS: CPT CODE: [id number] CT ANGIO CHEST 68202 (Continued) CC: Gabo Horan HE[employer] CLE[employer]ER; Eduin Nur MD Technologist:Sloan Bethea, RT(R)(CT) CTDI: DLP: Trnscb Date/Time: 11/07/2022 (0557) [email or web address] Orig Print D/T: S: 11/07/2022 (0557) PAGE 4 Signed Report- CTA HEART W CN ART/GRAFTS 2022-11-07 00:00:00 [facility] 1945 Sex: FName: ZHANNA SANTOS [facility] : 1945 Age/S: 76 / F [address] [facility] Unit #: [id number] Loc: [place] [address] Phys: Gabo Horan [employer] CLE[employer]ER Acct: [id number] Dis Date: Status: DEP CLIPHONE #: [phone] Exam Date: 11/06/2022 1220 FAX #: [phone] Reason: EXAMS: CPT CODE: [id number] CTA HEART W CN ART/GRAFTS 39135 PROCEDURE INFORMATION: Exam: CTA Heart And Coronary Arteries With Contrast Exam date and time: 11/06/2022 12:10 PM Age: 76 years old Clinical indication: Condition ordisease; Other: HTN TECHNIQUE: Imaging protocol: CT angiography of the heart, coronary arteries, andbypass grafts (when present) with contrast including 3D image postprocessing. Standard prospective cardiac-gated CAC scoring protocol was used for image acquisition. Following intravenous contrast administration, ECG gated CTA was performed. 3D rendering (Not supervised by radiologist): MIP and/or 3D reconstructed images were created by the technologist. Radiation optimization: All CT scans at this facility use at least one of these dose optimization techniques: automated exposure control; mA and/or kV adjustment per patient size (includes targeted exams where dose is matched to clinical indication); or iterative reconstruction. Contrast material: ISOVUE 370; Contrast volume: 100 ml; Contrast route: INTRAVENOUS (IV); Pharmacological intervention: None. REPORTING DATA: Count of CT and Cardiac NM exams in prior 12 months: This patient has received 0 known CTs and 0 known cardiac nuclear medicine studies in the 12 months prior to the current study. COMPARISON: DX XR CHEST 2 V 10/30/2022 5:08 PM FINDINGS: PHASE OF CARDIAC CYCLE MEASUREMENTS OBTAINED: 30% of the R-R interval Aortic valve morphology:Bicuspid Valve calcification: Moderate burden. Aortic valve calcium score: 1234 AORTIC ANNULAR MEASUREMENTS: Annular area: 390 mm2 Perimeter: 72 mm Max diameter: 27 mm Min diameter: 18 mm Annular/Subannular calcification: Mild burden Mitral annular calcification: Moderate burden Height of left main above annular plane: 15 mm Height of RCA above annular plane: [address] ridge above annular plane: 23 mm Sinus of Valsalva (left): 33 mm PAGE 1 Signed Report (CONTINUED) Name: ZHANNA SANTOS [facility] : 1945 Age/S: 76 / F [address] [place], [place] [address] Unit #: [id number] Loc: [place] [address] Phys: Gabo Horan NP Acct: [id number] Dis Date: Status: DEP CLI PHONE #: [phone] Exam Date: 11/06/2022 1220 FAX #: [phone] Reason: EXAMS: CPT CODE: [id number] CTA HEART W CN ART/GRAFTS 44186 (Continued) Sinus of Valsalva (right): 32 mm Sinus of Valsalva (noncoronary): 36 mm Mid ascending aorta diameter: 37 mm LA chamber size: Normal size. Myocardium: No calcification or fatty metaplasia to suggest prior infarct. Coronary arteries: Mild burden of calcified coronary plaque. Pericardium: No thickening, calcification or effusion. IMPRESSION: Aortic root measurements provided for TAVR planning. Aortic annular area: 390 mm2 High risk aortic root features: Bicuspid aortic valve. PROCEDURE INFORMATION: Exam: CTA Chest With Contrast CTA Abdomen and Pelvis With Contrast Exam date and time: 11/06/2022 12:10 PM Age: 76 years old Clinical indication: Conditionor disease; Other: HTN TECHNIQUE: Imaging protocol: Computed tomographic angiography of the chest with contrast. Exam focused on the arteries. Computed tomographic angiography of the abdomen and pelviswith contrast. Exam focused on the arteries. 3D rendering (Not supervised by radiologist): MIP and/or 3D reconstructed images were created by the technologist. Radiation optimization: All CT scans at this facility use at least one of these dose optimization techniques: automated exposure control; mA and/or kV adjustment per patient size (includes targeted exams where dose is matched to clinical indication); or iterative reconstruction. Contrast material: ISOVUE 370; Contrast volume: 100 ml; Contrastroute: INTRAVENOUS (IV); REPORTING DATA: Count of CT and Cardiac NM exams in prior 12 months: This patient has received 0 known CTs and 0 known cardiac nuclear medicine studies in the 12 months prior to the current study. COMPARISON: DX XR CHEST 2 V 10/30/2022 5:08 PM FINDINGS: VASCULATURE: Pulmonary arteries: Normal. No pulmonary emboli. Aorta: No aortic aneurysm. No aortic dissection. PAGE 2 Signed Report (CONTINUED) Name: ZHANNA SANTOS [facility] : 1945 Age/S: 76 / F [address] [place], [place] [address] Unit #: [id number] Loc: [place] [address] Phys: Gabo Horan NP Acct: [id number] Dis Date: Status: DEP CLI PHONE #: [phone] Exam Date: 11/06/2022 1220 FAX #: [phone] Reason: EXAMS: CPT CODE: [id number] CTA HEART W CN ART/GRAFTS 42398 (Continued) Celiac trunk and mesenteric arteries: No occlusion or significant stenosis. Renal arteries: No occlusion or significant stenosis. Right iliofemoral arteries: No occlusion or significant stenosis. Left iliofemoral arteries: No occlusionor significant stenosis. CHEST: Lungs: Unremarkable. No consolidation. No masses. Pleural spaces: Unremarkable. No pneumothorax. No pleural effusion. ABDOMEN AND PELVIS: Liver: No mass. Gallbladder and bile ducts: Unremarkable. No calcified stones. No ductal dilation. Pancreas: Unremarkable. No mass.No ductal dilation. Spleen: Unremarkable. No splenomegaly. Adrenal glands: Unremarkable. No mass. Kidneys and ureters: Unremarkable. No solid mass. No hydronephrosis. Stomach and bowel: Unremarkable. No obstruction. No mucosal thickening. Appendix: No evidence of appendicitis. Intraperitoneal space: Unremarkable. No free air. No significant fluid collection. Urinary bladder: Unremarkable. No mass. Reproductive: Unremarkable as visualized. Lymph nodes: Unremarkable. No enlarged lymph nodes. Bones/joints: Unremarkable. No acute fracture. Soft tissues: Unremarkable. IMPRESSION: Widely patent aorta and bilateral iliofemoral arteries without significant stenosis. COMMENTS: Unless otherwise specified, incidental findings do not require dedicated imaging and follow-up. at 0557 Reported and signed by: Lalito Harris M.D. PAGE 3 Signed Report (CONTINUED) Name: ZHANNA SANTOS [facility] : 1945 Age/S: 76 / F [address] [place] [address] Unit #: [id number] Loc: [place] [address] Phys: Gabo Horan NP Acct: [id number] Dis Date: Status: DEP CLI PHONE #: [phone] Exam Date: 11/06/2022 1220 FAX #: [phone] Reason: EXAMS: CPT CODE: [id number] CTA HEART W CN ART/GRAFTS 01728 (Continued) CC: Gabo Horan HEAVY CLEANER; Eduin Nur MD Technologist:Sloan Bethea RT(R)(CT) CTDI: DLP: Trnscb Date/Time: 11/07/2022 (0557) [email or web address] Orig Print D/T: S: 11/07/2022 (0557) PAGE 4 Signed ReportCOMPREHENSIVE METABOLIC PANEL 2022-11-06 15:21:00 Test Item Value Reference Range Interpretation Comments SODIUM (test code = 135 mEq/L 134-147 N NA) POTASSIUM (test code 3.7 mEq/L 3.4-5.0 N = K) CHLORIDE (test code 99 mEq/L 100-108 L = CL) CARBON DIOXIDE (test 26 mEq/l 21-33 N code = CO2) ANION GAP (test code 13 0-20 N = GAP) GLUCOSE (test code = 123 mg/dL 70-110 H GLU) BLOOD UREA NITROGEN 12 mg/dL 7-18 N (test code = BUN) GLOMERULAR 58.0 70-80 L The Glomerular FILTRATION RATE Filtration R ate is a (test code = GFR) calculated parameterbased on serum Creatinine, pat ient age and sex. GFR va luesless than 60 mL/min/ 1.73 square meters a re indicative ofCh ronic Kidney Disease. Values less than 15 mL/min/1.73squa re meters indicate Kidney failure. The calculation for GFR is based on the CK D-EPI (2020) calculat ion. This formulais race indifferent and is the recommended for george for GFRby the [facility] Kidney Found[facility] on for Adults.The GFR will not calculate if th e sex is unknown or if thepatient's ag e is <18 years. CREATININE (test 1.0 mg/dL 0.6-1.3 N code = CREAT) TOTAL PROTEIN (test 7.2 g/dL 6.4-8.2 N code = PROT) ALBUMIN (test code = 4.20 g/dL 3.4-5.0 N ALB) CALCIUM (test code = 9.7 mg/dL 8.0-10.5 N CA) BILIRUBIN TOTAL 1.00 mg/dL 0.0-1.0 N (test code = BILT) SGOT/AST (test code 21 IUnit/L 15-37 N = AST) SGPT/ALT (test code 25 IUnit/L 30-65 L = ALT) ALKALINE PHOSPHATASE 69 IUnit/L 20-125 N TOTAL (test code = ALKP) NO NUMBER GIVENCOVID 19 Asymptomatic IH [id number] 15:13:00 Test Item Value Reference Range Interpretation Comments COVID 19 Asymptomatic Negative Negative A nega tive result is IH AG (test code = presumpti ve and should COVNONPUIAG) be confirmedwit h an FDA authorized mole cular assay, if neces johnson forpatient rocio oliveira.A positive result does not rule out co-inf ections withother patho gens.This test detects aurelio th viable (live) and non-viable,SARS -CoV, and SARS-CoV-2. Mimi t performance dep ends on theamount of vi kamala (antigen) in th e sample.This mimi t has not been FDA cleare d or approved; the t est hasbeen authori zed by FDA under an Em ergency Use Authorizati on(EUA) for use by labo ratories certified under the CLIA thatmeet the requirements to perform moderate, high or waivedcomplexit y tests. NO NUMBER GIVENCB W/AUTO [id number] 15:12:00 Test Item Value Reference Range Interpretation Comments WHITE BLOOD CELL (test code = 9.4 x10 3/uL 4.5-11.0 N WBC) RED BLOOD CELL (test code = 4.96 x10 6/uL 3.54-5.02 N RBC) HEMOGLOBIN (test code = HGB) 15.7 g/dL 11.0-15.0 H HEMATOCRIT (test code = HCT) 46.6 % 33.0-45.0 H MEAN CELL VOLUME (test code = 94.0 fL 81.0-99.0 N MCV) MEAN CELL HGB (test code = MCH) 31.7 pg 27.0-33.0 N MEAN CELL HGB CONCETRATION 33.7 g/dL 33.0-37.0 N (test code = MCHC) RED CELL DISTRIBUTION WIDTH CV 12.3 % 11.5-14.5 N (test code = RDW) RED CELL DISTRIBUTION WIDTH SD 42.8 fL 37.0-54.0 N (test code = RDW-SD) PLATELET COUNT (test code = 174 x10 3/uL 150-400 N PLT) MEAN PLATELET VOLUME (test code 9.8 fL 7.0-9.0 H = MPV) NEUTROPHIL % (test code = NT%) 71.7 % 56.0-77.0 N IMMATURE GRANULOCYTE % (test 0.3 % 0.0-2.0 N code = IG%) LYMPHOCYTE % (test code = LY%) 17.1 % 14.0-32.0 N MONOCYTE % (test code = MO%) 8.8 % 4.8-9.0 N EOSINOPHIL % (test code = EO%) 1.6 % 0.3-3.7 N BASOPHIL % (test code = BA%) 0.5 % 0.0-2.0 N NUCLEATED RBC % (test code = 0.0 % 0-0 N NRBC%) NEUTROPHIL # (test code = NT#) 6.72 x10 3/uL 2.0-7.6 N IMMATURE GRANULOCYTE # (test 0.03 x10 3/uL 0.00-0.03 N code = IG#) LYMPHOCYTE # (test code = LY#) 1.60 x10 3/uL 1.0-3.8 N MONOCYTE # (test code = MO#) 0.82 x10 3/uL 0.1-0.8 H EOSINOPHIL # (test code = EO#) 0.15 x10 3/uL 0.0-0.2 N BASOPHIL # (test code = BA#) 0.05 x10 3/uL 0.0-0.2 N NUCLEATED RBC # (test code = 0.00 x10 3/uL 0.0-0.1 N NRBC#) MANUAL DIFF REQUIRED (test code NO = MDIFF) NO NUMBER GIVENGLUCOSE [id number] 14:32:00 Test Item Value Reference Range Interpretation Comments GLUCOSE BEDSIDE (test 114 MG/DL 70-110 H Perfor med by certified code = GLUBED) 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 : 1945 Sex: FFAX: Eduin Farfan MD [phone] [place]: St: REG Name: ZHANNA SANTOS [facility] : 1945 Age/S: 76/F [address] [place] [address] Unit #: [id number] Loc: [place] [address] Phys: Eduin Nur MD Acct: [id number] Dis Date: Status: REG [facility] [place] [place] PHONE #: [phone] Exam Date: 10/30/20221717 FAX #: [phone] Reason: PRE OP EXAMS: CPT CODE: [id number] XR CHEST 2 V [id number] PROCEDURE INFORMATION: Exam: XR Chest Exam date and time: 10/30/2022 5:08 PM Age: 76 years old Clinical indication: Screening exam; Pre-operative exam; Other: Na; Additional info: Pre op TECHNIQUE: Imaging protocol: Radiologic exam of the chest. Views: 2 views. COMPARISON: No relevant prior studies available. FINDINGS: Lungs: No focal airspace disease or evidence of pulmonary edema. Pleural spaces: No pleural effusion. No pneumothorax. Heart/Mediastinum: Normal appearance of the cardiomediastinal silhouette. Bones/joints: No acute abnormality. IMPRESSION: No acute findings. at 0614 Reported and signed by: Jelani Ayon M.D. CC: Eduin Nur MD Technologist: RT Bora(R) Trnscrd Date/Time/By: 10/31/2022 (0614) : By: [email or web address] Orig Print D/T: S: 10/31/2022 (5915) PAGE 1 Signed ReportBASIC METABOLIC [id number] 18:06:00 Test Item Value Reference Range Interpretation Comments SODIUM (test code = 139 mEq/L 134-147 N NA) POTASSIUM (test code 4.2 mEq/L 3.4-5.0 N = K) CHLORIDE (test code 104 mEq/L 100-108 N = CL) CARBON DIOXIDE (test 28 mEq/l 21-33 N code = CO2) ANION GAP (test code 11 0-20 N = GAP) GLUCOSE (test code = 120 mg/dL 70-110 H GLU) BLOOD UREA NITROGEN 12 mg/dL 7-18 N (test code = BUN) GLOMERULAR 51.8 70-80 L The Glomerular FILTRATION RATE Filtration R ate is a (test code = GFR) calculated parameterbased on serum Creatinine, pat ient age and sex. GFR va luesless than 60 mL/min/ 1.73 square meters a re indicative ofCh ronic Kidney Disease. Values less than 15 mL/min/1.73squa re meters indicate Kidney failure. The calculation for GFR is based on the CK D-EPI (2020) calculat ion. This formulais race indifferent and is the recommended for george for GFRby the Natio nal Kidney Foundati on for Adults.The GFR will not calculate if th e sex is unknown or if thepatient's ag e is <18 years. CREATININE (test 1.1 mg/dL 0.6-1.3 N code = CREAT) CALCIUM (test code = 10.7 mg/dL 8.0-10.5 H CA) PROTHROMBIN [id number] 17:56:00 Test Item Value Reference Range Interpretation Comments PROTHROMBIN TIME 12.1 SECONDS 9.3-12.9 N PATIENT (test code = PTP) INTERNATIONAL NORMAL 1.1 0.8-1.2 N TARGET INR BY RATIO (test code = INDICATIO N Indication INR) INR1. Prophylax is of venous thrombos is 2.0 - 3.0 (orthoped ic surgery), Proph ylaxis of venous throm bosis (other than hig h-risk surgery), Treat ment of Deep Vein Thrombosis/Pulm onary Embolism, Preve ntion of systemic emb olism - Tissue heart va lves, Acute Myocardia l Infarction (to prevent systemic emboli sm), Valvular heart disease, Atrial Fibrillation, Bileaflet mecha nical valve in aortic position.2. Mec hanical prosthetic valv es (high risk), 2. 5 - 3.5 Presence of Lup us Anticoagulant o r Antiphospholipi d Antibodies, Pre vention of systemic emb olism - Acute Myocardia l Infarction (to prevent recurrent infar ct). CBC W/AUTO [id number] 17:46:00 Test Item Value Reference Range Interpretation Comments WHITE BLOOD CELL (test code = 9.1 x10 3/uL 4.5-11.0 N WBC) RED BLOOD CELL (test code = 4.97 x10 6/uL 3.54-5.02 N RBC) HEMOGLOBIN (test code = HGB) 16.1 g/dL 11.0-15.0 H HEMATOCRIT (test code = HCT) 47.0 % 33.0-45.0 H MEAN CELL VOLUME (test code = 94.6 fL 81.0-99.0 N MCV) MEAN CELL HGB (test code = MCH) 32.4 pg 27.0-33.0 N MEAN CELL HGB CONCETRATION 34.3 g/dL 33.0-37.0 N (test code = MCHC) RED CELL DISTRIBUTION WIDTH CV 12.3 % 11.5-14.5 N (test code = RDW) PLATELET COUNT (test code = 193 x10 3/uL 150-400 N PLT) NEUTROPHIL % (test code = NT%) 67.2 % 56.0-77.0 N LYMPHOCYTE % (test code = LY%) 19.7 % 14.0-32.0 N NEUTROPHIL # (test code = NT#) 6.13 x10 3/uL 2.0-7.6 N LYMPHOCYTE # (test code = LY#) 1.80 x10 3/uL 1.0-3.8 N MANUAL DIFF REQUIRED (test code NO = MDIFF) RED CELL DISTRIBUTION WIDTH SD 43.0 fL 37.0-54.0 N (test code = RDW-SD) MEAN PLATELET VOLUME (test code 9.6 fL 7.0-9.0 H = MPV) IMMATURE GRANULOCYTE % (test 0.3 % 0.0-2.0 N code = IG%) MONOCYTE % (test code = MO%) 10.8 % 4.8-9.0 H EOSINOPHIL % (test code = EO%) 1.3 % 0.3-3.7 N BASOPHIL % (test code = BA%) 0.7 % 0.0-2.0 N NUCLEATED RBC % (test code = 0.0 % 0-0 N NRBC%) IMMATURE GRANULOCYTE # (test 0.03 x10 3/uL 0.00-0.03 N code = IG#) MONOCYTE # (test code = MO#) 0.99 x10 3/uL 0.1-0.8 H EOSINOPHIL # (test code = EO#) 0.12 x10 3/uL 0.0-0.2 N BASOPHIL # (test code = BA#) 0.06 x10 3/uL 0.0-0.2 N NUCLEATED RBC # (test code = 0.00 x10 3/uL 0.0-0.1 N NRBC#) Notes Date/Time Note Provider Source 2022-11-29 13:45:00-00:00 [id number] [place] [address] PATIENT NAME: ZHANNA SANTOS ADMIT DATE: 12/13 ACCOUNT NO: [id number] ROOM NO: G.3305 AGE: 77 REPORT TYPE: eECHOCARDIOGRAM REPORT SEX: F ADMITTING PHYSICIAN:Lobito Green MD ATTENDING PHYSICIAN:Lobito Green MD *[place] [address] Limited Transthoracic Echocardiogram Patient: Zhanna Santos Study Date: 11/28/2022 BP: Location: [facility] URN: [id number] 229 : 1945 Age: 77 Height: 66 in / 167.6 cm Gender: F Weight: 175 .6 lb / 79.8 kg BMI/BSA: 28.4 kg/m 2 / 1.95 m 2 *Ordering Physician: * Eduin Nur *Interpreting Physician: * Lobito Green MD *Manager Of Community Relations: * Carol Hernandez [facility] Indications: TAVR. Study data: Transthoracic echocardiogram, limite d study. Procedure: Transthoracic echocardiography was performed. Im ages were obtained using a [employer] cardiac ultrasound machine. Image quality w as good. Limited 2D and limited spectral Doppler. Location: [facility]. Findings Left ventricle: The cavity size is normal. Aortic valve: Pre TAVR: The LVOT diameter is 1.9 cm. The peak gradient is 55.6 mmHg. The mean gradient is 31.1 mmHg. The LVOT VTI is 25.1 cm. The AV VTI is 87.4 cm. The aortic valve area is 0.8 cm 2. The peak jet velocity is 3.7 m/sec. There is moderate to severe aortic stenos is. PATIENT NAME: ZHANNA SANTOS [id number] Post TAVR: There is a Noel PRADEEP 3, 23 mm tr anscatheter valve that is well seated in the aortic valve position. The LVOT diameter is 1.9 cm. The peak aortic gradient is 13.5 mmHg. The m janis aortic gradient is 6 mmHg. The LVOT VTI is 26 cm. The AV VTI is 40.4 cm. The aortic valve area is 1.8 cm 2. The peak jet velocity is 1.8 m /sec. There is no perivalular leak. Mitral valve: The annulus is moderately calcifie d. Pericardium: A prominent pericardial fat pad is present. There is no pericardial effusion. Systemic veins: Inferior vena cava: The respirophasic diameter c hanges are in the normal range (= 50%). Measurements LVOT Value 11/06/2022 Diam, S 1.89 cm 1.90 Area 2.8 cm 2 2.8 Peak suni, S 1.09 m/sec 0.83 Mean suni, S 0.79 m/sec 0.64 VTI, S 27.0 cm 21.0 Peak grad, S 5 mm Hg 3 Mean grad, S 3 mm Hg 2 SV 76 ml 56 Qs 5.08 L/min 3.18 Qs/bsa 2.6 L/(min-m 2) 1.7 SV/bsa 39 ml/m 2 29 Aortic valve Value 11/06/2022 Peak v, S 1.83 m/sec 4.09 Mean v, S 1.12 m/sec 3.03 VTI, S 45.7 cm 99.4 Mean grad, S 6.0 mm Hg 39.8 Peak grad, S 13.5 mm Hg 66.8 LVOT/AV, VTI ratio 0.59 0.21 LIAT, VTI 1.88 cm 2 0.65 LVOT/AV, Vpeak 0.59 0.2 ratio LIAT, Vmax 1.67 cm 2 0.62 Pulmonic valve Value 11/06/2022 DE v, ED 0.67 m/sec 0.57 Conclusions Summary: 1. Left ventricle: The cavity size is normal. 2. Mitral valve: The annulus is moderately calci fied. Prepared and electronically signed by PATIENT NAME: ZHANNA SANTOS [id number] Lobito Green MD 11/29/2022 13:44 Electronically Signed by Lobito Green MD on 0 11/29/22 at 1345 PATIENT NAME: ZHANNA SANTOS [id number] 2022-11-29 12:18:00-00:00 [id number] [place] [address] PATIENT NAME: ZHANNA SANTOS ADMIT DATE: 12/13 ACCOUNT NO: [id number] ROOM NO: G.3305 AGE: 77 REPORT TYPE: eECHOCARDIOGRAM REPORT SEX: F ADMITTING PHYSICIAN:Lobito Green MD ATTENDING PHYSICIAN:Lobito Green MD *[place] [address] Transthoracic Echocardiogram Patient: Zhanna Santos Study Date: 11/29/2022 BP: 110 / 55 Location: [facility] URN: [id number] 229 : 1945 Age: 77 Height: 66 in / 167.6 cm Gender: F Weight: 17 4.6 lb / 79.4 kg BMI/BSA: 28.2 kg/m 2 / 1.89 m 2 *Ordering Physician: * Gabo Horan *Interpreting Physician: * Leonel Mahmood MD *Manager Of Community Relations: * Autumn Olivera Indications: POST TAVR. Study data: Transthoracic echocardiogram. Proced ure: Transthoracic echocardiography was performed. Image quality wa s adequate. Complete 2D, complete spectral Doppler, and color Doppler . Location: Bedside. Patient status: Inpatient. Patient room number: 3305. Study status: VARGAS. Findings Left ventricle: The cavity size is normal. Wall thickness is normal. Systolic function is normal. The estimated eject ion fraction is 55-60%. Wall motion is normal; there are no regional wal l motion abnormalities. Doppler parameters are consistent with abnormal left ventricular relaxation (grade 1 diastolic dysfunction). PATIENT NAME: ZHANNA SANTOS [id number] Right ventricle: The cavity size is normal. Syst olic function is low normal. Left atrium: The atrium is mildly dilated. Right atrium: The atrium is normal in size. Aorta: Aortic root: The aortic root is normal in size. Aortic valve: Post TAVR: There is a Noel PRADEEP 3, 23 mm tr anscatheter valve that is well seated in the aortic valve position. The LVOT diameter is 2 cm. The peak aortic gradient is 28.9 mmHg. The mean aortic gradient is 14.7 mmHg. The LVOT VTI is 33.1 cm. The AV VTI is 58. 4 cm. The aortic valve area is 1.8 cm 2. The peak jet velocity is 2.7 m /sec. There is no perivalvular leak noted. There is no evidence of stenosis. There is no significant regurgitation. Mitral valve: The annulus is mildly calcified. T here is no evidence of stenosis. There is mild regurgitation. Tricuspid valve: The valve is structurally erin l. There is trivial regurgitation. Pulmonic valve: The valve is structurally normal . There is no regurgitation. Pericardium: A trivial pericardial effusion is i dentified. Pulmonary arteries: Main pulmonary artery: The artery is of normal s ize. Systemic veins: Inferior vena cava: The vessel is normal in size . Measurements Left ventricle Value 11/28/2022 Ref HEAVEN, LAX 3.8 cm 4.7 3.8 - 5.2 ESD, LAX 2.7 cm 3.5 2.2 - 3.5 ESD/bsa, 1.4 cm/m 2 2.3 1.3 LAX - 2.1 FS, LAX 29 % 26 27 - 45 ESD/bsa 3.1 cm/m 2 ---- major ax, A4C HEAVEN/bsa 3.1 cm/m 2 ---- minor ax, A4C HEAVEN major 6.8 cm ---- ax, A2C HEAVEN/bsa 3.6 cm/m 2 ---- major ax, A2C PW, ED 1.0 cm 1.0 0.6 - 0.9 PATIENT NAME: ZHANNA SANTOS [id number] IVS/PW, ED 1.05 1 ---- EF 56 % 50 54 - 74 E', lat 8.7 cm/sec >=10 claudia, TDI .0 E/e', lat 8 ---- claudia, TDI E', med 6.2 cm/sec >=7. claudia, TDI 0 E/e', med 12 ---- claudia, TDI E', avg, 7.4 cm/sec ---- TDI E/e', avg, 10 <=14 TDI LVOT Value 11/28/2022 Ref Diam, S 2.01 cm ---- Area 3.2 cm 2 ---- Peak suni, S 1.24 m/sec 0.66 ---- Mean suni, S 0.74 m/sec 0.47 ---- VTI, S 33.1 cm 14.7 ---- Peak grad, 6 mm Hg 2 ---- S Mean grad, 3 mm Hg 1 ---- S SV 105 ml ---- Qs 5.9 L/min ---- Qs/bsa 3.1 L/(min-m 2) ---- SV/bsa 56 ml/m 2 ---- Ventricular septum Value 11/28/2022 Ref IVS, ED 1.0 cm 1.0 0.6 - 0.9 Right ventricle Value 11/28/2022 Ref HEAVEN, LAX 2.4 cm 2.7 ---- Pressure, S 25 mm Hg ---- RVOT Value 11/28/2022 Ref Peak v, S 0.93 m/sec ---- Peak grad, 3 mm Hg ---- S Left atrium Value 11/28/2022 Ref Vol/bsa, 33 ml/m 2 11 - ES, 1-p A4C 40 Vol, ES, 77 ml ---- 2-p Vol/bsa, 41 ml/m 2 16 - ES, 2-p 34 Vol/bsa, 37 ml/m 2 16 - ES, A/L 34 PATIENT NAME: ZHANNA SANTOS [id number] AP dim, ES 3.3 cm 2.7 MM - 3.8 LA/Ao root 1.05 ---- ratio, MM Aortic valve Value 11/28/2022 Ref Leaflet 1.59 cm ---- sep, MM Peak v, S 2.69 m/sec 1.31 ---- Mean v, S 1.76 m/sec 0.95 ---- VTI, S 58.4 cm 31.1 ---- Mean grad, 14.7 mm Hg 4.0 ---- S Peak grad, 28.9 mm Hg 6.9 ---- S LVOT/AV, 0.57 0.47 ---- VTI ratio LIAT, VTI 1.80 cm 2 ---- LVOT/AV, 0.46 0.51 ---- Vpeak ratio LIAT, Vmax 1.46 cm 2 ---- Mitral valve Value 11/28/2022 Ref E-septal 0.8 cm ---- separation E-F slope 0.07 m/sec ---- Peak E 0.07 m/sec ---- Peak A 1.05 m/sec ---- Decel time 215 ms ---- PHT 65 ms ---- Peak E/A 0.7 ---- ratio MVA, PHT 3.4 cm 2 ---- Pulmonic valve Value 11/28/2022 Ref DE v, ED 0.56 m/sec 0.76 ---- Tricuspid valve Value 11/28/2022 Ref TR peak v 1.93 m/sec 1.97 <=2. 8 Peak RV-RA 15 mm Hg 16 ---- grad, S Aortic root Value 11/28/2022 Ref Root diam, 3.17 cm ---- ED MM Pulmonary artery Value 11/28/2022 Ref Pressure, S 20.6 mm Hg ---- Systemic veins Value 11/28/2022 Ref Estimated 10 mm Hg ---- CVP PATIENT NAME: ZHANNA SANTOS [id number] Conclusions Summary: 1. Left ventricle: The cavity size is normal. Wa ll thickness is normal. Systolic function is normal. The estimated ejec tion fraction is 55-60%. Wall motion is normal; there are no reg ional wall motion abnormalities. Doppler parameters are consisten t with abnormal left ventricular relaxation (grade 1 diastolic dysf unction). 2. Right ventricle: The RV pressure during systo le by Doppler is 25 mm Hg. 3. Left atrium: The atrium is mildly dilated. 4. Aortic valve: There is a Noel PRADEEP 3, 23 mm transcatheter valve that is well seated in the aortic valve positio n. There is no perivalvular leak noted. The peak systolic velo city is 2.69 m/sec. The mean systolic gradient is 14.7 mm Hg. The v alve area by the velocity-time integral method is 1.80 cm 2. 5. Mitral valve: The annulus is mildly calcified . There is mild regurgitation. 6. Tricuspid valve: There is trivial regurgitati on. 7. Pericardium, extracardiac: A trivial pericard ial effusion is identified. Prepared and electronically signed by Leonel Mahmood MD 11/29/2022 12:18 Electronically Signed by Leonel Mahmood MD on 0 11/29/22 at 1218 PATIENT NAME: ZHANNA SANTOS [id number] 2022-11-29 12:16:00-00:00 [facility]) Discharge Summary REPORT#:[id number] REPORT STATUS: Signed DATE:11/29/22 TIME: 1216 PATIENT: ZHANNA SANTOS UNIT #: [id number] ROOM/BED: 3305-1 : 44 AGE: 77 SEX: F ATTEND: Roshan Green MD ADM AUTHOR: Gabo Horan NP * ALL edits or amendments must be made on the el [employer]/computer document * PCP PCP Discharge to: home General Information Free Text A P: 1. Severe Symptomatic Aortic Stenosis S/p TAVR 23 mm Noel Pradeep S3, successful imp lant. Patient monitored overnight. Groin sites CDI, sinus rhythm no bleeding noted. Labs and vital signs reviewed. Cardiology reviewed echocardiogram and OK for di schaoscarge. F/u in clinic with Cardiology and we will follow with Structural Heart team. 2. Sinus Bradycardia The patient had some bradyca rdia post operatively I suspect vasovagal response. EP has evaluated the patient and recommended DC of beta cherie. Patient to f/u with Dr. Nur in clinic. Date of admission: Observation Start Date: Date of admission: 11/28/22 Discharge date: 11/29/22 Discharge diagnosis: Severe symptomatic aortic stenosis Hospital course: This is a 77 year old male/female with a past me dical history of severe symptomatic aortic stenosis that presented for e lective transcatheter aortic valve replacement and underw ent successful implant of a 23 mm Noel Pradeep S3 Valve . The patient was monitored overnight and did well. The labs and vital signs reviewed bilateral groins CDI without blee ding or hematoma. Consultants: cardiology Med Rec PCP PCP: PCP: Macario Varela MD Med Rec Discharge meds: Stop taking the following medications: METOPROLOL SUCC XL (TOPROL XL) 100 MG TAB.SA 100 MILLIGRAM ORAL DAILY. Continue taking these medications: [RHYBELSUS] 7 MILLIGRAM ORAL DAILY. Dapagliflozin Propanediol (FARXIGA) 10 MG TAB 10 MILLIGRAM ORAL BEDTIME. SPIRONOLACTONE (ALDACTONE) 50 MG TAB 50 MILLIGRAM ORAL DAILY. Start taking the following new medications: CLOPIDOGREL (PLAVIX) 75 MG TAB 75 MILLIGRAM ORAL DAILY. Qty = 30 Refills = 3 ASPIRIN (ASPIRIN) 81 MG TAB.CHEW 81 MILLIGRAM ORAL DAILY. Qty = 30 No Refills Objective VS/I O Last Documented: Result Date Time Pulse Ox 96 11/29 1200 B/P 110/60 11/29 1200 B/P Mean 80 08/09 1200 Pulse 74 11/29 1200 Resp 39 11/29 1200 Temp 36.5 11/29 0400 O2 Delivery Simple mask 11/28 1708 O2 Flow Rate 4 11/28 1630 PATIENT WEIGHT: Weight (lb): 175 Weight (oz): 5.87 Weight (kg): 79.545 General appearance: alert, awake, oriented, no a cute distress Head/Eyes: atraumatic, EOMI Neck: full range of motion Cardiovascular: normal capillary refill, regular rate rhythm, normal heart sounds, BP/pulses equal bilat. Respiratory: clear to auscultation, no distress, no tenderness Genitourinary: not indicated Musculoskeletal: full range of motion, normal in spection Neuro/COLORING MACHINE OPERATOR: alert, oriented X 3 Skin: dry Discharge Instructions PCP PCP: PCP: Macario Varela MD )( Discharge to: Home/Self Care Discharge Instructions Additional Discharge Routines: Attending Follow- Up )( Diet: Resume Home Diet/Feeds Follow-up Appointments Attending Physician: Attending Physician: Lobito Green MD Electronically Signed by Gabo Horan NP on 11/30 at 0910 RPT #:[id number] END OF REPORT 2022-11-29 09:56:00-00:00 [facility] Prog REPORT#:[id number] REPORT STATUS: Signed DATE:11/29/22 TIME: 09 PATIENT: ZHANNA SANTOS UNIT #: [id number] ROOM/BED: [place] [address] : 44 AGE: 77 SEX: F ATTEND: Roshan Green MD ADM AUTHOR: Amisha Rodas MD * ALL edits or amendments must be made on the [employer],/computer document * General Post-op: day 1 Status post: 1.Transcatheter aortic valve replacement (TAVR) utilizing # 23 Noel's Pradeep S3 Ultra pericardial valve via transfemor al approach with MAC. 2. Ascending aortogram 3. Placement of temporary pacing wire 4. Manta closure of right common femoral artery 5. 6-Rwandan Angioseal closure of the left femora l artery Subjective Chief complaint: Aortic vavle stenosis Review of Systems Constitutional: Denies: chills, fatigue, generalized weakness. Skin: Denies: abrasion, contusion, ecchymosis. Allergy/Immun: Denies: allergic reaction, anaphylaxis, hives. Eyes: Denies: redness, discharge, diplopia. ENT: Denies: ear drainage, earache, nasal congestion, sore throat. Respiratory: Denies: BELLO (dyspnea on exertion), pneumonia, SO B. GI: Denies: abdominal pain, constipation, diarrhea, nausea, vomiting. : Denies: dysuria, flank pain, urgency. Musculoskeletal: Denies: arthritis, extremity pain, joint swellin g. Heme: Denies: adenopathy, bleeding, bruising. Endocrine: Denies: cold intolerance, heat intolerance, poly uria. Neuro: Denies: confusion, dizziness, seizure. All systems rev neg: except as marked Objective General VS/I O Last Documented: Result Date Time Pulse Ox 98 11/29 699 B/P 105/58 11/29 699 B/P Mean 78 11/29 699 Pulse 64 11/29 07 Resp 32 11/29 699 Temp 36.5 11/29 0400 O2 Delivery Simple mask 11/28 1708 O2 Flow Rate 4 11/28 1630 24 hour I O ending at 0700: 11/29 0700 11/28 1900 Intake Total 222 700.00 Output Total 150 1550 Balance 72 -850.00 Intake, IV 450.00 Intake, Oral 222 250 Number Voids 3 Output, Urine 150 1550 PATIENT WEIGHT: Weight (lb): 175 Weight (oz): 5.87 Weight (kg): 79.545 Dietitian Nutrition assessment The data set between the solid lines has been im ported from the dietitian's assessment. BMI Calculated: 28.3 Nutrition related diagnosis: Nutrition diagnosis details: Nutrition problem: Nutrition etiology: Nutrition signs and symptoms: Nutrition prescription: Dietitian name: Assessment completed: Physical Exam General appearance: alert, awake, oriented HEENT: anicteric, mucosal membranes moist, pupil s reactive to light Neck: full range of motion, non-tender Cardiovascular: normal heart sounds, regular rat e rhythm Respiratory: aerating well, symmetric expansion, no distress Abdomen: soft, non-tender Genitourinary: no bladder distention, no flank p ain, no vee Extremities: dry, moves all, normal capillary re fill, normal temperature Musculoskeletal: full range of motion Neuro/COLORING MACHINE OPERATOR: alert, oriented X 3 Skin: dry, intact, normal temperature Psychiatry: normal affect, normal mood Current Medications Medications: Active Meds + DC'd Last 24 Hrs Aspirin (ASPIRIN) 81 MG DAILY PO Clopidogrel Bisulfate (Plavix) 75 MG DAILY PO Metoprolol Succinate (TOPROL XL 100MG) 100 MG DA SY PO (CAN) Mupirocin (BACTROBAN 2% 22 GM OINTMENT) 1 APPLIC BID NASAL Dapagliflozin (FARXIGA) 10 MG BEDTIME PO Trazodone HCl (DESYREL) 50 MG ONCE ONE PO (DC) Atropine Sulfate (ATROPINE SULFATE 0.1MG/ML SYR) 0 .STK-MED ONE IV (DC) Furosemide (LASIX 20MG INJ) 20 MG ONCE ONE IV (D C) Furosemide (LASIX 20MG INJ) 0 .STK-MED ONE IV (D C) Diphenhydramine HCl (BENADRYL) 12.5 MG PACU ONCE PRN IV (DC) Fentanyl Citrate (SUBLIMAZE) 100 MCG PACU Q10MIN PRN PRN IV (DC) Fentanyl Citrate (SUBLIMAZE) 50 MCG PACU Q10MIN PRN PRN IV (DC) Hydralazine HCl (APRESOLINE) 5 MG PACU Q10MIN DE N PRN IV (DC) Hydrocodone Bitart/Acetaminophen (NORCO 5/325) 1 TAB PACU ONCE PO (DC) Hydromorphone HCl (DILAUDID) 1 MG PACU Q10MIN DE N PRN IV (DC) Hydromorphone HCl (DILAUDID) 0.5 MG PACU Q5MIN P RN PRN IV (DC) Insulin Human Lispro (HUMALOG) 0 PACU ONCE PRN S UBQ (DC) Labetalol HCl (LABETALOL HCL) 5 MG PACU Q10MIN P RN PRN IV (DC) Meperidine HCl (MEPERIDINE HCL/PF) 12.5 MG PACU ONCE PRN IV (DC) Morphine Sulfate (morphine SULFATE) 2 MG PACU Q1 0MIN PRN PRN IV (DC) Ondansetron HCl (ZOFRAN) 4 MG PACU ONCE PRN IV ( DC) Promethazine HCl (PHENERGAN) 25 MG PACU ONCE PRN PO (DC) Ropivacaine (NAROPIN 0.5% 150 MG/30mL) 150 MG DIR PRN LOCAL (DC) Tramadol HCl (ULTRAM) 50 MG PACU ONCE PO (DC) Spironolactone (ALDACTONE) 50 MG DAILY PO (DC) Fentanyl Citrate (SUBLIMAZE) 0 .STK-MED ONE .ROU TE (DC) Atropine Sulfate (ATROPINE SULFATE 0.1MG/ML SYR) 0.5 MG ASDIR PRN IV Sodium Chloride (SODIUM CHLORIDE 0.9%) 500 ML DIR PRN IV Sterile Water (WATER FOR INJECTION) 10 ML .STK-M ED ONE IV (DC) Norepinephrine Bitartrate (LEVOPHED BITARTATE) 0 .STK-MED ONE IV (DC) Heparin Sodium/Sodium Chloride (HEPARIN 2,000 UN ITS/NS 1,000mL) 1,000 ML .STK-MED ONE IV (DC) Heparin Sodium/Sodium Chloride (HEPARIN 1,000 UN ITS/NS 500ML) 500 ML .STK- MED ONE IV (DC) Lidocaine HCl (LIDOCAINE HCL/PF) 0 .STK-MED ONE .ROUTE (DC) Vancomycin HCl (VANCOMYCIN HCL) 0 .STK-MED ONE . ROUTE (DC) Midazolam HCl (VERSED) 2 MG NOW ONE IV (DC) Acetaminophen (TYLENOL EXTRA STRENGTH) 1,000 MG PREOP ONCALL PO (CKD) Gabapentin (NEURONTIN) 200 MG PREOP ONCALL PO (C KD) Lactated Ringer's (LACTATED RINGERS) 1,000 ML DE EOP ONCALL IV Lidocaine HCl (LIDOCAINE HCL/PF) 2 ML PREOP ONCA LL LOCAL Lidocaine HCl (LIDOCAINE HCL/PF) 2 ML PREOP ONCA LL LOCAL Sodium Chloride (SODIUM CHLORIDE 0.9%) 500 ML DE EOP ONCALL IV Sodium Chloride (SODIUM CHLORIDE 0.9%) 500 ML DE EOP ONCALL IV Sodium Chloride (SODIUM CHLORIDE 0.9%) 1,000 ML PREOP ONCALL IV Sodium Chloride (SODIUM CHLORIDE) 5 ML ASDIR PRN IV Sodium Chloride (SODIUM CHLORIDE) 10 ML ASDIR DE N IV Sodium Chloride (SODIUM CHLORIDE 0.9%) 250 ML DIR PRN IV Results Findings/Data: Laboratory Tests 11/29 0325 Chemistry Sodium (134 - 147 mEq/L) 138 Potassium (3.4 - 5.0 mEq/L) 3.9 Chloride (100 - 108 mEq/L) 106 Carbon Dioxide (21 - 33 mEq/l) 23 Anion Gap (0 - 20) 13 BUN (7 - 18 mg/dL) 16 Creatinine (0.6 - 1.3 mg/dL) 0.9 Glomerular Filtr Rate (70 - 80) 65.4 L Glucose (70 - 110 mg/dL) 151 H Calcium (8.0 - 10.5 mg/dL) 9.1 Laboratory Tests 11/28 1222 Coagulation Activated Coag Time (74 - 137 SEC) 432 H Laboratory Tests 11/29 0325 Hematology WBC (4.5 - 11.0 x10 3/uL) 10.8 RBC (3.54 - 5.02 x10 6/uL) 4.48 Hgb (11.0 - 15.0 g/dL) 14.1 Hct (33.0 - 45.0 %) 41.3 MCV (81.0 - 99.0 fL) 92.2 MCH (27.0 - 33.0 pg) 31.5 MCHC (33.0 - 37.0 g/dL) 34.1 RDW (11.5 - 14.5 %) 12.4 Plt Count (150 - 400 x10 3/uL) 148 L MPV (7.0 - 9.0 fL) 9.9 H Neut % (Auto) (56.0 - 77.0 %) 87.0 H Lymph % (Auto) (14.0 - 32.0 %) 4.9 L [place] % (Auto) (4.8 - 9.0 %) 7.4 Eos % (Auto) (0.3 - 3.7 %) 0.0 L Baso % (Auto) (0.0 - 2.0 %) 0.2 Neut # (Auto) (2.0 - 7.6 x10 3/uL) 9.43 H Lymph # (Auto) (1.0 - 3.8 x10 3/uL) 0.53 L [place] # (Auto) (0.1 - 0.8 x10 3/uL) 0.80 Eos # (Auto) (0.0 - 0.2 x10 3/uL) 0.00 Baso # (Auto) (0.0 - 0.2 x10 3/uL) 0.02 Abs Immat Gran (auto) (0.00 - 0.03 x10 3/uL) 0. 05 H Add Manual Diff NO Immature Gran % (0.0 - 2.0 %) 0.5 Nucleated RBC % (0 - 0 %) 0.0 Nucleated RBCs # (Man) (0.0 - 0.1 x10 3/uL) 0.0 0 Radiology data: Recent Impressions: RADIOLOGY - XR CHEST 1 V 11/28 1514 Report Impression - Status: SIGNED Entered: 11/28/2022 7298 IMPRESSION: No acute cardiopulmonary findings. Impression By: [email or web address] Iveth Chandler Results: labs reviewed, vital signs stable, vinicius angel personally rev'd, x-ray personally reviewed, current med profile rev'd Diagnosis, Assessment Plan Hospital course to date: This is a very pleasant 77-year-old female with a past medical history of hypertension, hyperlipidemia who was rec ently found to have significant aortic valve stenosis by echocardiogram. She re ports symptoms of shortness of breath, and occasional dizziness and lightheadedness. An echocardiogram was completed in the outpatient setting showing an LIAT 0.7 cm with a gradient of 30 mmHg Patient had a left heart catheterization on 10/21 showing no significant coronary artery disease. Patient does admit to symptoms of shortness of breath with exertion. The patient was [facility] heart conference and deemed a good candidate for TAVR. Patient admitted for TAVR Assessment/plan 1. Hypertension 2. Hyperlipidemia 3. Aortic valve stenosis Patient was seen and examined by Dr. Rodas pre operatively. TAVR was discussed with the patient and the rosio ent's family. The risk of the operation including , b leeding, infection, heart attack, stroke, prolonged ICU stay, renal failure, dialysis, need for long -term rehabilitation etc. was discussed with the patient. Patient's questions were answered and the patient agreed to proceed with surgery 11/29/22 Patient in stable condition, no complaints Labs reviewed Breathing comfortable on room air, no distress NSR Echocardiogram done this AM OOB in chair Ok to d/c home once cleared by cardiology and ec ho read F/U with cardiology outpatient Consultants: cardiology at 1233 RPT #:[id number] END OF REPORT 2022-11-29 08:39:00-00:00 [facility]L [facility] ([facility]) Structural Heart Post Progress REPORT#:[id number] REPORT STATUS: Signed DATE:11/29/22 TIME: 08 PATIENT: ZHANNA SANTOS UNIT #: [id number] ROOM/BED: [place] [address] : 44 AGE: 77 SEX: F ATTEND: Roshan Green MD ADM AUTHOR: Gabo Horan NP * ALL edits or amendments must be made on the [employer],/computer document * History of Present Illness HPI Procedure date: 11/28/22 TAVR procedure: Valve type: Edward's Pradeep S3 Ultra Valve size: 23 Approach: transfemoral History Smoking status for patients 13 years old or olde r: Never Smoker Medication/Allergy-Vaccine Hx Allergies: Coded Allergies: Penicillins (Intermediate, SWELLING FEET AND ITC HY 11/24/22) Review of systems ROS Cardiovascular: Denies: chest pain, BELLO (dyspnea on exer tion), edema, orthopnea, palpitations, parox nocturnal dyspnea, other. 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 Severe Symptomatic Aortic Stenosis S/p TAVR 23 mm Noel Pradeep S3, successful imp lant. Patient monitored overnight. Groin sites CDI, sinus rhythm no bleeding noted. Labs and vital signs reviewed. Cardiology reviewed echocardiogram and OK for di scharge. F/u in clinic with Cardiology and we will follow with Structural Heart team. Electronically Signed by Gabo Horan NP on 11/30 at 0905 RPT #:[id number] END OF REPORT 2022-11-29 08:38:00-00:00 [facility]L [facility]) EP Consultation Note REPORT#:[id number] REPORT STATUS: Signed DATE:11/29/22 TIME: 837 PATIENT: ZHANNA SANTOS UNIT #: [id number] ROOM/BED: [place] [address] : 44 AGE: 77 SEX: F ATTEND: Roshan Green MD ADM AUTHOR: Winnie Rodriguez HEAVY CLEANER * ALL edits or amendments must be made on the [employer],/computer document * Luisa Rodriguez 11/29/22 0838: History of Present Illness Requesting clinician: Dr. Green Reason for consult: new LBBB post TAVR Chief complaint: SOB, TAVR PCP: PCP: Macario Varela MD HPI: The patient is a 77-year-old female with past me dical history of who was recently found to have signi ficant aortic valve stenosis by echocardiogram. She reports symptoms of shortness of breath, and occ asional dizziness and lightheadedness. An echocardiogram was completed in the outpatient setting showing an LIAT 0.7 cm with a gradient of 30 mmHg . Patient had a left heart catheterization on 10/31/2022 showing no signific ant coronary artery disease. Patient does admit to symptoms of shortness of b reath with exertion. Patient admitted yesterday for TAVR. EP consulted for ne w LBBB s/p TAVR. Thank you kindly for the consultation and the opportunity to participate in the patient's plan of care. History - Adult longitudinal Additional medical history: hypertension, hyperlipidemia, Alcohol use: Denies EtOH use Drug use: Denies recreational drugs Smoking status for patients 13 years old or olde r: Never Smoker Medications: Home Medications: Medication Dose/Rte/Freq Days Qty Entered Last Max Daily Dose Reviewed METOPROLOL SUCC XL 100 MG PO DAILY 10/30/2212/13 (TOPROL XL) 1731 0924 Strength: 100 MG TAB.SA [RHYBELSUS] 7 MG PO DAILY 10/30/22 11/28/22 Strength: 1731 0924 Dapagliflozin Propanediol 10 MG PO BEDTIME 10/2111/28/22 (FARXIGA) 1732 0924 Strength: 10 MG TAB SPIRONOLACTONE 50 MG PO DAILY 10/30/22 11/28/22 (ALDACTONE) 1732 0924 Strength: 50 MG TAB Current Hospital Medications: Anti-Infective Agents Sig/Soniya Start time Last Medication Dose Route Stop Time Status Admin Vancomycin HCl 0 .STK-MED ONE 11/28 1103 DC (VANCOMYCIN HCL) .ROUTE 1146 Antihistamine Drugs Sig/Soniya Start time Last Medication Dose Route Stop Time Status Admin Diphenhydramine HCl 12.5 MG PACU ONCE PRN 11/28 1245 DC (BENADRYL) IV 11/28 2239 Promethazine HCl 25 MG PACU ONCE PRN 11/28 1245 DC (PHENERGAN) PO 11/28 2239 Autonomic Drugs Sig/Soniya Start time Last Medication Dose Route Stop Time Status Admin Atropine Sulfate 0 .STK-MED ONE 11/28 1848 DC 11/28 (ATROPINE SULFATE IV 1857 0.1MG/ML SYR) Atropine Sulfate 0.5 MG ASDIR PRN 11/28 1145 A C (ATROPINE SULFATE IV 12/28 1144 0.1MG/ML SYR) Norepinephrine 0 .STK-MED ONE 11/28 1108 DC Bitartrate IV (LEVOPHED BITARTATE) Blood Formation,Coagulation Sig/Soniya Start time Last Medication Dose Route Stop Time Status Admin Clopidogrel Bisulfate 75 MG DAILY 11/29 899 AC 11/29 (Plavix) PO 12/29 0859 0808 Heparin Sodium/ 1,000 ML .STK-MED ONE 11/28 110 3 DC 11/28 Sodium Chloride IV 1146 (HEPARIN 2,000 UNITS/ NS 1,000mL) Heparin Sodium/ 500 ML .STK-MED ONE 11/28 1103 DC 11/28 Sodium Chloride IV 1146 (HEPARIN 1,000 UNITS/ NS 500ML) Cardiovascular Drugs Sig/Soniya Start time Last Medication Dose Route Stop Time Status Admin Metoprolol Succinate 100 MG DAILY 11/29 899 CA N (TOPROL XL 100MG) PO 12/29 0859 Hydralazine HCl 5 MG PACU Q10MIN PRN PRN 11/28 1245 DC (APRESOLINE) IV 11/28 223 Labetalol HCl 5 MG PACU Q10MIN PRN PRN 11/28 12 45 DC (LABETALOL HCL) IV 11/28 223 Spironolactone 50 MG DAILY 11/28 1213 DC (ALDACTONE) PO 12/28 1212 Lidocaine HCl 0 .STK-MED ONE 11/28 1103 DC 08/0 8 (LIDOCAINE HCL/PF) .ROUTE 1146 Lidocaine HCl 0 .STK-MED ONE 11/28 0932 DC (XYLOCAINE) .ROUTE Lidocaine HCl 2 ML PREOP ONCALL 11/24 1500 AC (LIDOCAINE HCL/PF) LOCAL 12/24 2359 Lidocaine HCl 2 ML PREOP ONCALL 11/24 1500 AC (LIDOCAINE HCL/PF) LOCAL 12/24 2359 Central Nervous System Agents Sig/Soniya Start time Last Medication Dose Route Stop Time Status Admin Aspirin 81 MG DAILY 11/29 899 AC 11/29 (ASPIRIN) PO 12/29 0859 0808 Trazodone HCl 50 MG ONCE ONE 11/28 2045 DC 08/0 8 (DESYREL) PO 11/28 2045 2050 Fentanyl Citrate 100 MCG PACU Q10MIN PRN PRN 1245 DC (SUBLIMAZE) IV 11/28 2238 Fentanyl Citrate 50 MCG PACU Q10MIN PRN PRN 1245 DC (SUBLIMAZE) IV 11/28 223 Hydrocodone Bitart/ 1 TAB PACU ONCE 11/28 1245 DC Acetaminophen PO 11/28 223 (NORCO 5/325) Hydromorphone HCl 1 MG PACU Q10MIN PRN PRN 08 8 1245 DC (DILAUDID) IV 11/28 223 Hydromorphone HCl 0.5 MG PACU Q5MIN PRN PRN 1245 DC (DILAUDID) IV 11/28 223 Meperidine HCl 12.5 MG PACU ONCE PRN 11/28 1245 DC (MEPERIDINE HCL/PF) IV 11/28 223 Morphine Sulfate 2 MG PACU Q10MIN PRN PRN 11/28 1245 DC (morphine SULFATE) IV 11/28 223 Tramadol HCl 50 MG PACU ONCE 11/28 1245 DC (ULTRAM) PO 11/28 223 Fentanyl Citrate 0 .STK-MED ONE 11/28 1155 DC (SUBLIMAZE) .ROUTE Midazolam HCl 2 MG NOW ONE 11/28 1100 DC (VERSED) IV 11/28 1101 Dexmedetomidine HCl 0 .STK-MED ONE 11/28 0932 D C (PRECEDEX) IV Fentanyl Citrate 0 .STK-MED ONE 11/28 0932 DC (SUBLIMAZE) .ROUTE Midazolam HCl 0 .STK-MED ONE 11/28 0932 DC (VERSED) .ROUTE Acetaminophen 1,000 MG PREOP ONCALL 11/24 1500 CKD 11/28 (TYLENOL EXTRA PO 12/24 2358 0848 STRENGTH) Gabapentin 200 MG PREOP ONCALL 11/24 1500 CKD 0 11/28 (NEURONTIN) PO 12/24 235 0848 Electrolytic, Caloric, And Raza Sig/Soniya Start time Last Medication Dose Route Stop Time Status Admin Furosemide 20 MG ONCE ONE 11/28 1515 DC 11/28 (LASIX 20MG INJ) IV 11/28 1516 1522 Furosemide 0 .STK-MED ONE 11/28 1502 DC (LASIX 20MG INJ) IV Sodium Chloride 500 ML ASDIR PRN 11/28 1145 AC (SODIUM CHLORIDE IV 12/28 1144 0.9%) Lactated Ringer's 1,000 ML PREOP ONCALL 11/24 1 500 AC (LACTATED RINGERS) IV 12/24 2358 Sodium Chloride 500 ML PREOP ONCALL 11/24 1500 AC (SODIUM CHLORIDE IV 12/24 2358 0.9%) Sodium Chloride 500 ML PREOP ONCALL 11/24 1500 AC (SODIUM CHLORIDE IV 09/03 2359 0.9%) Sodium Chloride 1,000 ML PREOP ONCALL 11/24 150 0 AC (SODIUM CHLORIDE IV 12/24 2359 0.9%) Sodium Chloride 5 ML ASDIR PRN 11/24 1500 AC (SODIUM CHLORIDE) IV 12/24 1459 Sodium Chloride 10 ML ASDIR PRN 11/24 1500 AC (SODIUM CHLORIDE) IV 12/24 1459 Sodium Chloride 250 ML ASDIR PRN 11/24 1500 AC (SODIUM CHLORIDE IV 12/24 1459 0.9%) Eye, Ear, Nose And Throat (Een Sig/Soniya Start time Last Medication Dose Route Stop Time Status Admin Dexamethasone Sodium 0 .STK-MED ONE 11/28 0932 DC Phosphate .ROUTE (DECADRON) Gastrointestinal Drugs Sig/Soniya Start time Last Medication Dose Route Stop Time Status Admin Ondansetron HCl 4 MG PACU ONCE PRN 11/28 1245 D C 11/28 (ZOFRAN) IV 11/28 2239 1858 Ondansetron HCl 0 .STK-MED ONE 11/28 0932 DC (ZOFRAN) .ROUTE Hormones And Synthetic Substit Sig/Soniya Start time Last Medication Dose Route Stop Time Status Admin Dapagliflozin 10 MG BEDTIME 11/28 2100 AC (FARXIGA) PO 12/28 2059 Insulin Human Lispro 0 PACU ONCE PRN 11/28 1245 DC (HUMALOG) SUBQ 11/28 2239 Local Anesthetics (Parenteral) Sig/Soniya Start time Last Medication Dose Route Stop Time Status Admin Ropivacaine 150 MG ASDIR PRN 11/28 1245 DC (NAROPIN 0.5% 150 MG/ LOCAL 11/28 2239 30mL) Pharmaceutical Aids Sig/Soniya Start time Last Medication Dose Route Stop Time Status Admin Sterile Water 10 ML .STK-MED ONE 11/28 1109 DC 11/28 (WATER FOR INJECTION) IV 1146 Skin And Mucous Membrane Agent Sig/Soniya Start time Last Medication Dose Route Stop Time Status Admin Mupirocin 1 APPLIC BID 11/29 0900 AC (BACTROBAN 2% 22 GM NASAL 12/03 2100 OINTMENT) Allergies: Coded Allergies: Penicillins (Intermediate, SWELLING FEET AND ITC HY 11/24/22) Review of Systems Constitutional: Reports: fatigue, generalized weakness. Skin: Denies: itching, laceration. Allergy/Immun: Denies: allergic reaction. Eyes: Denies: visual loss/blurred. ENT: Denies: mouth pain, nasal congestion. Respiratory: Reports: SOB. Cardiovascular: Reports: BELLO (dyspnea on exertion). Denies: ches t pain, palpitations. GI: Denies: abdominal pain, rectal pain, vomiting. : Denies: dysuria, flank pain. Musculoskeletal: Denies: joint swelling, lumbar pain. Heme: Denies: bleeding, bruising. Endocrine: Denies: polyuria, weight loss. Neuro: dizziness. Denies: bladder dysfunction. Psych: Denies: agitation, anxiety. All systems rev neg: except as marked Objective VS/I O Laboratory Tests 11/29/22 0325: [Embedded Image Not Available] Current Medications Sig/Soniya Start time Last Medication Dose Route Stop Time Status Admin Aspirin 81 MG DAILY 11/29 899 AC 11/29 PO 12/29 Clopidogrel Bisulfate 75 MG DAILY 11/29 899 AC 11/29 PO 12/29 Metoprolol Succinate 100 MG DAILY 11/29 899 CAN PO 12/29 858 Mupirocin 1 APPLIC BID 11/29 899 AC NASAL 12/03 210 Dapagliflozin 10 MG BEDTIME 11/28 2100 AC PO 12/28 205 Trazodone HCl 50 MG ONCE ONE 11/28 2045 DC 11/28 PO 11/28 2045 205 Atropine Sulfate 0 .STK-MED ONE 11/28 1848 DC 0 11/28 IV 1857 Furosemide 20 MG ONCE ONE 11/28 1515 DC 11/28 IV 11/28 1516 1522 Furosemide 0 .STK-MED ONE 11/28 1502 DC IV Diphenhydramine HCl 12.5 MG PACU ONCE PRN 11/28 1245 DC IV 11/28 2239 Fentanyl Citrate 100 MCG PACU Q10MIN PRN PRN 1245 DC IV 11/28 223 Fentanyl Citrate 50 MCG PACU Q10MIN PRN PRN 08/ 8 1245 DC IV 11/28 223 Hydralazine HCl 5 MG PACU Q10MIN PRN PRN 11/28 1 245 DC IV 11/28 223 Hydrocodone Bitart/ 1 TAB PACU ONCE 11/28 1245 D C Acetaminophen PO 11/28 223 Hydromorphone HCl 1 MG PACU Q10MIN PRN PRN 11/28 1245 DC IV 11/28 2239 Hydromorphone HCl 0.5 MG PACU Q5MIN PRN PRN 08 8 1245 DC IV 11/28 2239 Insulin Human Lispro 0 PACU ONCE PRN 11/28 1245 DC SUBQ 11/28 2239 Labetalol HCl 5 MG PACU Q10MIN PRN PRN 11/28 12 45 DC IV 11/28 2239 Meperidine HCl 12.5 MG PACU ONCE PRN 11/28 1245 DC IV 11/28 2239 Morphine Sulfate 2 MG PACU Q10MIN PRN PRN 11/28 1245 DC IV 11/28 2239 Ondansetron HCl 4 MG PACU ONCE PRN 11/28 1245 DC 11/28 IV 11/28 2239 1858 Promethazine HCl 25 MG PACU ONCE PRN 11/28 1245 DC PO 11/28 2239 Ropivacaine 150 MG ASDIR PRN 11/28 1245 DC LOCAL 11/28 2239 Tramadol HCl 50 MG PACU ONCE 11/28 1245 DC PO 11/28 2239 Spironolactone 50 MG DAILY 11/28 1213 DC PO 12/28 1212 Fentanyl Citrate 0 .STK-MED ONE 11/28 1155 DC .ROUTE Atropine Sulfate 0.5 MG ASDIR PRN 11/28 1145 AC IV 12/28 1144 Sodium Chloride 500 ML ASDIR PRN 11/28 1145 AC IV 12/28 1144 Sterile Water 10 ML .STK-MED ONE 11/28 1109 DC 0 11/28 IV 1146 Norepinephrine 0 .STK-MED ONE 11/28 1108 DC Bitartrate IV Heparin Sodium/ 1,000 ML .STK-MED ONE 11/28 1103 DC 11/28 Sodium Chloride IV 1146 Heparin Sodium/ 500 ML .STK-MED ONE 11/28 1103 D C 11/28 Sodium Chloride IV 1146 Lidocaine HCl 0 .STK-MED ONE 11/28 1103 DC 08/0 8 .ROUTE 1146 Vancomycin HCl 0 .STK-MED ONE 11/28 1103 DC 08 .ROUTE 1146 Midazolam HCl 2 MG NOW ONE 11/28 1100 DC IV 11/28 1101 Dexamethasone Sodium 0 .STK-MED ONE 11/28 0932 D C Phosphate .ROUTE Dexmedetomidine HCl 0 .STK-MED ONE 11/28 0932 DC IV Fentanyl Citrate 0 .STK-MED ONE 11/29 931 DC .ROUTE Lidocaine HCl 0 .STK-MED ONE 11/29 931 DC .ROUTE Midazolam HCl 0 .STK-MED ONE 11/29 931 DC .ROUTE Ondansetron HCl 0 .STK-MED ONE 11/29 931 DC .ROUTE Acetaminophen 1,000 MG PREOP ONCALL 11/24 1500 C KD 11/28 PO 12/24 235 0848 Gabapentin 200 MG PREOP ONCALL 11/24 1500 CKD PO 12/24 235 0848 Lactated Ringer's 1,000 ML PREOP ONCALL 11/24 15 00 AC IV 12/24 2359 Lidocaine HCl 2 ML PREOP ONCALL 11/24 1500 AC LOCAL 12/24 2359 Lidocaine HCl 2 ML PREOP ONCALL 11/24 1500 AC LOCAL 12/24 2359 Sodium Chloride 500 ML PREOP ONCALL 11/24 1500 A C IV 12/24 2359 Sodium Chloride 500 ML PREOP ONCALL 11/24 1500 A C IV 12/24 2359 Sodium Chloride 1,000 ML PREOP ONCALL 11/24 1500 AC IV 12/24 2359 Sodium Chloride 5 ML ASDIR PRN 11/24 1500 AC IV 12/24 1459 Sodium Chloride 10 ML ASDIR PRN 11/24 1500 AC IV 12/24 1459 Sodium Chloride 250 ML ASDIR PRN 11/24 1500 AC IV 12/24 1459 Last Documented: Result Date Time Pulse Ox 98 11/29 07 B/P 105/58 11/29 07 B/P Mean 78 11/29 07 Pulse 64 11/29 07 Resp 32 11/29 07 Temp 36.5 11/29 0400 O2 Delivery Simple mask 11/28 1708 O2 Flow Rate 4 11/28 1630 24 hour I O ending at 0700: 11/29 0700 11/28 1900 Intake Total 222 700.00 Output Total 150 1550 Balance 72 -850.00 Intake, IV 450.00 Intake, Oral 222 250 Number Voids 3 Output, Urine 150 1550 PATIENT WEIGHT: Weight (lb): 175 Weight (oz): 5.87 Weight (kg): 79.545 General appearance: alert, awake, oriented, no a cute distress, no respiratory distress HEENT: mucosal membranes moist Neck: full range of motion, non-tender Cardiovascular: CV assessment: regular rate and rhythm, normal heart sounds, pedal pulses present Respiratory: decreased breath sounds, no distres s Abdomen: soft, non-tender Genitourinary: no flank pain Extremities: dry, moves all, no edema Musculoskeletal: normal inspection 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 Sinus bradycardia, New LBBB s/p TAVR (11/28/22) - EKG post TAVR showed NSR with 1st degree AVB, LBBB, QRS 134 ms - EKG today showed sinus bradycardia wit h sinus arrhythmia, rate 57, QRS 78 ms - Patient is asymptomatic - BB discontinued - On tele NSR 60s 2. Severe s/p TAVR 11/28/22 3. HTN 4. HLD Plan/Recommendations: - Continuous tele monitoring - ECHO LVEF 55-59% - AVOID AV jackelyn blocking agents, BB discontinue d - Recommend Follow up after discharge for cardia c event monitor for one week - Follow up with Dr. Nur as outpatient - Ok to discharge from EP standpoint - Will follow and adjust therapies as clinical c ourse dictates Consultants: cardiology Plan discussed with: patient Code status: full code Marco A Teague 11/30/22 1424: Attestations Attestation needed: supervising physician Physician Attestation Reviewed findings plan: The patient seen and examine d on 11/29/2022. I agree with the findings and plan as documented by Winnie Rodriguez NP. at 1053 at 1425 RPT #:[id number] END OF REPORT 2022-11-29 05:44:00-00:00 [id number] [address] PATIENT NAME: ZHANNA SANTOS ADMIT DATE: 12/13 ACCOUNT NO: [id number] [place] [facility] [place] AGE: 77 REPORT TYPE: eELECTROCARDIOGRAM REPORT SEX: F ADMITTING PHYSICIAN:Lobito Green MD ATTENDING PHYSICIAN:Lobito Green MD Order: [id number] Test Reason : Post PCI Test Date/Time Stamp: SunNov 29 2022 05:44:18 Blood Pressure : / mmHG Vent. Rate : 057 BPM Atrial Rate : 057 BPM P-R Int : 192 ms QRS Dur : 078 ms QT Int : 470 ms P-R-T Axes : 066 022 030 degree s QTc Int : 457 ms Sinus bradycardia with sinus arrhythmia Low voltage QRS Borderline ECG When compared with ECG of 28-NOV-2022 13:20, Significant changes have occurred Confirmed by MD MAHMOOD GERARD ([id number]) on 12/05/19 1:34:19 PM Referred By: Eduin Nur Confirmed by:LEONEL MARRUFO MD at 1334 PATIENT NAME: ZHANNA SANTOS [id number] 2022-11-28 14:53:00-00:00 [id number] [place] [address] PATIENT NAME: ZHANNA SANTOS ADMIT DATE: 12/13 ACCOUNT NO: [id number] ROOM NO: [facility] AGE: 77 REPORT TYPE: eECHOCARDIOGRAM REPORT SEX: F ADMITTING PHYSICIAN:Lobito Green MD ATTENDING PHYSICIAN:Lobito Green MD *[place] [address] Limited Transthoracic Echocardiogram Patient: Zhanna Santos Study Date: 11/28/2022 BP: 102 / 61 Location: [facility] URN: [id number] 229 : 1945 Age: 77 Height: 64 in / 162.6 cm Gender: F Weight: 112 lb / 50.9 kg BMI/BSA: 19.3 kg/m 2 / 1.51 m 2 *Ordering Physician: * Gabo Horan *Interpreting Physician: * Lobito Green MD *Manager Of Community Relations: * MagdielRaven jernigana Indications: Hypotensive. Study data: Transthoracic echocardiogram, limite d study. Procedure: Transthoracic echocardiography was performed. Im age quality was adequate. Limited 2D and limited spectral Dopple r. Location: [facility]. Patient status: Inpatient. Patient room number: [facility]. Study status: Stat. Rhythm: Normal sinus rhythm. Findings Left ventricle: The cavity size is normal. Wall thickness is normal. Systolic function is normal. The estimated eject ion fraction is 55-59%. Wall motion is normal; there are no regional wal l motion abnormalities. There is fusion of early and atrial contribution s to ventricular filling. PATIENT NAME: ZHANNA SANTOS [id number] Right ventricle: The cavity size is normal. Syst olic function is low normal. Left atrium: The atrium is normal in size. Right atrium: The atrium is normal in size. Aorta: Aortic root: The aortic root is normal in size. Aortic valve: There is a bioprosthetic valve. Th ere is no evidence of stenosis. There is no regurgitation. Mitral valve: The annulus is mildly calcified. There is no evidence of stenosis. There is trivial regurgitation. Tricuspid valve: The valve is structurally erin l. There is physiologic regurgitation. Pulmonic valve: The valve is structurally normal . There is no regurgitation. Pericardium: A prominent pericardial fat pad is present. A trivial pericardial effusion is identified anterior to t he heart. Pulmonary arteries: Main pulmonary artery: The artery is of normal s ize. Systemic veins: Inferior vena cava: The vessel is normal in size . Measurements Left ventricle Value 11/06/2022 Ref HEAVEN, LAX 4.7 cm 4.6 3.8 - 5.2 ESD, LAX 3.5 cm 2.8 2.2 - 3.5 ESD/bsa, 2.3 cm/m 2 1.5 1.3 - 2.1 LAX FS, LAX 26 % 40 27 - 45 PW, ED 1.0 cm 0.8 0.6 - 0.9 IVS/PW, ED 1 1.19 --------- EF 50 % 70 54 - 74 LVOT Value 11/06/2022 Ref Peak suni, 0.66 m/sec 0.83 --------- S Mean suni, 0.47 m/sec 0.64 --------- S VTI, S 14.7 cm 21.0 --------- Peak grad, 2 mm Hg 3 --------- S Mean grad, 1 mm Hg 2 --------- S Ventricular septum Value 11/06/2022 Ref IVS, ED 1.0 cm 0.9 0.6 - 0.9 Right ventricle Value 11/06/2022 Ref HEAVEN, LAX 2.7 cm 3.0 --------- Aortic valve Value 11/06/2022 Ref Peak v, S 1.31 m/sec 4.09 --------- Mean v, S 0.95 m/sec 3.03 --------- VTI, S 31.1 cm 99.4 --------- PATIENT NAME: ZHANNA SANTOS [id number] Mean grad, 4.0 mm Hg 39.8 --------- S Peak grad, 6.9 mm Hg 66.8 --------- S LVOT/AV, 0.47 0.21 --------- VTI ratio LVOT/AV, 0.51 0.2 --------- Vpeak ratio Pulmonic valve Value 11/06/2022 Ref DE v, ED 0.76 m/sec 0.57 --------- Tricuspid valve Value 11/06/2022 Ref TR peak v 1.97 m/sec 1.88 <=2.8 Peak RV-RA 16 mm Hg 14 --------- grad, S Conclusions Summary: 1. Left ventricle: The cavity size is normal. Wa ll thickness is normal. Systolic function is normal. The estimated ejec tion fraction is 55-59%. Wall motion is normal; there are no reg ional wall motion abnormalities. There is fusion of early and atr ial contributions to ventricular filling. 2. Aortic valve: There is a bioprosthetic valve. 3. Mitral valve: The annulus is mildly calcified . 4. Tricuspid valve: There is physiologic regurgi tation. 5. Pericardium, extracardiac: A trivial pericard ial effusion is identified anterior to the heart. Prepared and electronically signed by Lobito Green MD 11/28/2022 14:53 at 1453 PATIENT NAME: ZHANNA SANTOS [id number] 2022-11-28 13:20:00-00:00 [id number] [place] [address] PATIENT NAME: ZHANNA SANTOS ADMIT DATE: 12/13 ACCOUNT NO: [id number] [place]OM NO: [facility] [place] AGE: 77 REPORT TYPE: eELECTROCARDIOGRAM REPORT SEX: F ADMITTING PHYSICIAN:Lobito Green MD ATTENDING PHYSICIAN:Lobito Green MD Order: [id number] Test Reason : TAVR Test Date/Time Stamp: SunNov 28 2022 13:20:16 Blood Pressure : / mmHG Vent. Rate : 070 BPM Atrial Rate : 070 BPM P-R Int : 254 ms QRS Dur : 134 ms QT Int : 472 ms P-R-T Axes : 070 -24 118 degree s QTc Int : 509 ms Sinus rhythm with 1st degree AV block Left bundle branch block Abnormal ECG When compared with ECG of 24-NOV-2022 14:47, No changes Confirmed by MD MAHMOOD GERARD ([id number]) on 9:18:53 PM Referred By: Eduin Nur Confirmed by:LEONEL MARRUFO MD at 5842 PATIENT NAME: ZHANNA SANTOS [id number] 2022-11-28 13:19:00-00:00 HCACL [facility] Cardiothoracic Surgery Consult REPORT#:[id number] REPORT STATUS: Signed DATE:11/28/22 TIME: 1319 PATIENT: ZHANNA SANTOS UNIT #: [id number] ROOM/BED: [facility] : 44 AGE: 77 SEX: F ATTEND: Roshan Green MD ADM AUTHOR: Elly Duggan Physic * ALL edits or amendments must be made on the [employer],/computer document * Elly Duggan 11/28/22 1319: History of Present Illness HPI Chief complaint: Aortic vavle stenosis HPI: This is a very pleasant 77-year-old female with a past medical history of hypertension, hyperlipidemia who was rec ently found to have significant aortic valve stenosis by echocardiogram. She re ports symptoms of shortness of breath, and occasional dizziness and lightheadedness. An echocardiogram was completed in the outpatient setting showing an LIAT 0.7 cm with a gradient of 30 mmHg Patient had a left heart catheterization on 10/21 showing no significant coronary artery disease. Patient does admit to symptoms of shortness of breath with exertion. The patient was presented at the [facility] heart conference and deemed a good candidate for TAVR. Patient admitted for TAVR History Smoking status for patients 13 years old or olde r: Never Smoker Allergies: Coded Allergies: Penicillins (Intermediate, SWELLING FEET AND ITC HY 11/24/22) Review of Systems Free Text ROS Notes Free Text ROS Notes: Constitutional: Negative for fever, chills, weig ht loss Skin: Negative for rash, negative for swelling n egative for any laceration HEENT: Denies hearing loss d enies any ear ringing denies any earache denies any sore throat denies any throat pain Respiratory: Positive for dyspnea on exertion Cardiac: Denies chest pain, denies palpitations denies orthopnea GI: Denies constipation denies diarrhea : Denies hematuria denies dysuria denies flank pain Musculoskeletal: Denies any joint pain denies an y joint swelling denies any myalgia Hematologic: Denies any easy bruising, denies an y bleeding Endocrine: denies any night sweats, denies polyu tamy polydipsia Neurologic: Denies any lightheaded denies any he adache denies any confusion denies any dizziness Objective Physical Exam VS/I O: Last Documented: Result Date Time Pulse Ox 97 11/24 1559 B/P 132/83 11/24 1559 Temp 98.5 11/24 1559 Pulse 64 11/24 1559 PATIENT WEIGHT: Weight (lb): 175 Weight (oz): 5.87 Weight (kg): 79.545 General appearance: alert, awake, oriented Free Text Obj Notes Free Text Obj Notes: General: well nourished, well groomed, no acute distress. HEENT: conjunctiva clear, extraocular movement i ntact, PERRLA, Neck: no, JVD, trachea midline, no, lymphadenopa thy, neck supple, normal ROM. Respiratory: Clear to auscultation, no distress. Cardiovascular: regular rate and rhythm, 3/6 sys tolic ejection murmur Abdomen: Soft, non tender. No rebound. No guardi ng Extremities: dry, moves all. Musculoskeletal: Full range of motion, no CVA te nderness, no muscle spasm Skin: warm, dry, no, lesions, rash. Neurologic: Alert and oriented x3. Psychiatric: affect and demeanor normal Diagnosis, Assessment Plan Free Text A P: This is a very pleasant 77-year-old female with a past medical history of hypertension, hyperlipidemia who was rec ently found to have significant aortic valve stenosis by echocardiogram. She re ports symptoms of shortness of breath, and occasional dizziness and lightheadedness. An echocardiogram was completed in the outpatient setting showing an LIAT 0.7 cm with a gradient of 30 mmHg Patient had a left heart catheterization on 10/21 showing no significant coronary artery disease. Patient does admit to symptoms of shortness of breath with exertion. The patient was presented at the [facility] heart conference and deemed a good candidate for TAVR. Patient admitted for TAVR Assessment/plan 1. Hypertension 2. Hyperlipidemia 3. Aortic valve stenosis Patient was seen and examined by Dr. Rodas pre operatively. TAVR was discussed with the patient and the rosio ent's family. The risk of the operation including , b leeding, infection, heart attack, stroke, prolonged ICU stay, renal failure, dialysis, need for long -term rehabilitation etc. was discussed with the patient. Patient's questions were answered and the patient agreed to proceed with surgery Amisha Rodas 12/03/22 1216: Attestations Physician Attestation Agree w/findings plan: I have seen and examined Ms. Santos. I agree wi th the findings and plan as documented by SARABJIT Santana. Briefly, 77-year-old female with severe aortic stenosis. She was worked up and presented in the structural heart conference. Sh farhana is being admitted to the hospital today for TAVR. I h ad a long discussion with the patient, explained to the procedure, risk involved, benefit, alternati ves, STS risk score, and complications. at 1323 at 1225 [facility] #:[id number] END OF REPORT 2022-11-28 13:03:00-00:00 HCACL [facility] DT Operative Note REPORT#:[id number] REPORT STATUS: Signed DATE:11/28/22 TIME: 1303 PATIENT: ZHANNA SANTOS UNIT #: [id number] ROOM/BED: PATRICIA : 44 AGE: 77 SEX: F ATTEND: Roshan Green MD ADM AUTHOR: Amisha Rodas MD * ALL edits or amendments must be made on the [employer],/computer document * Operative Report Operative Note Note: Preoperative diagnosis: Severe symptomatic aorti c stenosis Postoperative diagnosis: Severe symptomatic aort ic stenosis Procedure: 1.Transcatheter aortic valve replacem ent (TAVR) utilizing # 23 Noel's Pradeep S3 Ultra pe ricardial valve via transfemoral approach with MAC. 2. Ascending aortogram 3. Placement of temporary pacing wire 4. Manta closure of right common femoral artery 5. 6-Rwandan Angioseal closure of the left femor al artery Surgeon: Rudy Rodas MD Pipe Organ Technician: MD Eduin Ibrahim MD Anaesthesia: MAC Estimated blood loss: 20 cc Indication: Mr Gilman is a pleasant 77-year-old, fem steven with severe symptomatic aortic stenosis. She was investigated an d was found to be a suitable candidate for TAVR. After do preop counseling she was brou ght to the hybrid room today for TAVR Findings: 1. Severe calcification of aortic valv e 2. The delivery system was passed without diffi culty into the left ventricular outflow tract for deployment. 3. A 23 mm Pradeep S3 Ultra valve was required 4. Post replacement TTE revealed no paravalvula r leak 5. Patient had good Doppler signals in both low er extremities following the procedure. Procedure in detail: Further details will be dic tated by Dr. Nur as he was the measurement department chief clerk. The pat ient was brought into the hybrid room. A timeout procedure was performed which confirme d the patient's name medical record number and the procedure to be pe rformed. The patient was placed supine on the operating table. The chest, abdomen, and groins were prepped and draped in standard surgical fashion. 1% lidocaine was used to anesthetize th e area over the right femoral artery, and left femoral artery and vein. After placement of appropriate sheath patient was heparinized, to maint ain and a ACT more than 250 second. An aortic root shot was performed, noting t he optimal angle for deployment of the valve. This confirmed the position already deter mined by CT angiogram 3D reconstruction. Subsequently, the 23 mm Noel Pradeep S3 Ultra transcatheter valve was placed into the sheath in the right fe moral artery and brought up through the aortic valve and placed in the correct position. This was confirmed by the heart valve team. Subsequently the rapid ventricular pacing was performed and the valve was deployed in the aort ic annulus appropriately. The Cordis and sheath were pulled back. Postplacemen t transthoracic echo revealed good placement of the valve with no aortic insuf ficiency. A pigtail catheter was placed into the left angely tricle and simultaneous LV and aortic pressures were obtained. The mean gradient was minimal. Subsequ ently, the sheaths were removed, the right common fe moral artery was closed with a Manta device and the left common femoral artery w as closed using Mynx device. The subcutaneous tissue in the right groin was approximated with 2-0 Julio Cesar ryl and skin with 4-0 Vicryl. Sterile dressings were applied. I was present as co-surgeon in conjuncti on with Dr Mills and Dr. Nur. Dr. Nur will dictate his portion in detai l. The patient tolerated the procedure well and was taken to the coronary care unit in stable condition. Sponge, needle and instrument count were correct. at 1314 [facility] #:[id number] END OF REPORT 2022-11-24 14:47:00-00:00 [id number] [address] PATIENT NAME: ZHANNA SANTOS ADMIT DATE: ACCOUNT NO: [id number] ROOM NO: AGE: 77 REPORT TYPE: eELECTROCARDIOGRAM REPORT SEX: F ADMITTING PHYSICIAN: ATTENDING PHYSICIAN:Eduin Nur MD Order: [id number] Test Reason : PREOP Test Date/Time Stamp: SunNov 24 2022 14:47:28 Blood Pressure : / mmHG Vent. Rate : 059 BPM Atrial Rate : 059 BPM P-R Int : 192 ms QRS Dur : 082 ms QT Int : 428 ms P-R-T Axes : 065 074 064 degree s QTc Int : 423 ms Sinus bradycardia 1st Degree AV Block Possible Anterior infarct (cited on or before ) Abnormal ECG PRE_OP Confirmed by MELONY HUFF MD ([id number]) on 3 4:05:37 PM Referred By: Eduin Nur Confirmed by:MELONY DIAZ MD at 1605 PATIENT NAME: ZHANNA SANTOS [id number] 2022-11-07 15:29:00-00:00 [id number] [place] [address] PATIENT NAME: ZHANNA SANTOS ADMIT DATE: 10/21 11/12 ACCOUNT NO: [id number] ROOM NO: AGE: 76 REPORT TYPE: eECHOCARDIOGRAM REPORT SEX: F ADMITTING PHYSICIAN: ATTENDING PHYSICIAN:Gabo Horan [employer] *[place] [address] Transthoracic Echocardiogram Patient: Zhanna Santos Study Date: 11/06/2022 BP: 118 / 71 Location: C OCCL URN: [id number] : 1945 Age: 76 Height: 67 in / 170.2 cm Gender: F Weight: 171 .6 lb / 78 kg BMI/BSA: 26.9 kg/m 2 / 1.9 m 2 *Ordering Physician: * Gabo Horan *Interpreting Physician: * Leonel Mahmood MD *Manager Of Community Relations: * Sharon Veloz Indications: Aortic stenosis. Study data: Transthoracic echocardiogram. Proced ure: Transthoracic echocardiography was performed. Image quality wa s adequate. Complete 2D, complete spectral Doppler, and color Doppler . Location: Echo laboratory. Patient status: Outpatient. Study st atus: Routine. Rhythm: Bradycardia. Findings Left ventricle: The cavity size is normal. Wall thickness is normal. Systolic function is normal. The estimated eject ion fraction is 55-60%. Wall motion is normal; there are no regional wal l motion abnormalities. Average global longitudinal strain is -18.9. Dop pler parameters are consistent with abnormal left ventricular relaxa tion (grade 1 diastolic PATIENT NAME: ZHANNA SANTOS [id number] dysfunction). Right ventricle: The cavity size is normal. Syst olic function is low normal. Left atrium: The atrium is normal in size. Right atrium: The atrium is normal in size. Aorta: Aortic root: The aortic root is normal in size. Aortic valve: The valve is trileaflet. The leafl ets are severely thickened. Cusp separation is severely reduced. Noncoronary cusp mobility is severely restricted. The findings ar e consistent with severe stenosis. There is mild regurgitation. Mitral valve: The annulus is mildly calcified. T here is no evidence of stenosis. There is trivial regurgitation. Tricuspid valve: The valve is structurally erin l. There is physiologic regurgitation. Pulmonic valve: The valve is structurally normal . There is no regurgitation. Pericardium: There is no pericardial effusion. Pulmonary arteries: The main pulmonary artery is normal-sized. Systemic veins: Inferior vena cava: The vessel is normal in size . The respirophasic diameter changes are in the normal range (= 50%) . Measurements Left ventricle Value Ref GLS, 2D -15 % --------- HEAVEN, LAX 4.6 cm 3.8 - 5.2 ESD, LAX 2.8 cm 2.2 - 3.5 ESD/bsa, LAX 1.5 cm/m 2 1.3 - 2.1 FS, LAX 40 % 27 - 45 ESD/bsa major 2.5 cm/m 2 --------- ax, A4C HEAVEN/bsa minor 2.5 cm/m 2 --------- ax, A4C HEAVEN major ax, 6.2 cm --------- A2C ESD major ax, 4.6 cm --------- A2C HEAVEN/bsa major 3.3 cm/m 2 --------- ax, A2C ESD/bsa major 2.4 cm/m 2 --------- ax, A2C PW, ED 0.8 cm 0.6 - 0.9 IVS/PW, ED 1.19 --------- EF 70 % 54 - 74 E', lat claudia, 7.4 cm/sec >=10.0 TDI E/e', lat claudia, 8 --------- TDI E', med claudia, 5.9 cm/sec >=7.0 TDI E/e', med claudia, 10 --------- PATIENT NAME: ZHANNA SANTOS [id number] TDI E', avg, TDI 6.7 cm/sec --------- E/e', avg, TDI 9 <=14 LVOT Value Ref Diam, S 1.90 cm --------- Area 2.8 cm 2 --------- Peak suni, S 0.83 m/sec --------- Mean suni, S 0.64 m/sec --------- VTI, S 21.0 cm --------- Peak grad, S 3 mm Hg --------- Mean grad, S 2 mm Hg --------- SV 56 ml --------- Qs 3.18 L/min --------- Qs/bsa 1.7 L/(min-m 2) --------- SV/bsa 29 ml/m 2 --------- Ventricular septum Value Ref IVS, ED 0.9 cm 0.6 - 0.9 Right ventricle Value Ref HEAVEN, LAX 3.0 cm --------- TAPSE, MM 1.6 cm 1.7 - 3.1 S' lateral 12.7 cm/sec 6.0 - 13.4 RVOT Value Ref Peak v, S 0.76 m/sec --------- Peak grad, S 2 mm Hg --------- Left atrium Value Ref AP dim, ES 2.77 cm 2.70 - 3.80 Vol/bsa, ES, 16 ml/m 2 11 - 40 1-p A4C Vol, ES, 2-p 49 ml --------- Vol/bsa, ES, 26 ml/m 2 16 - 34 2-p Vol/bsa, ES, 17 ml/m 2 16 - 34 A/L AP dim, ES MM 3.2 cm 2.7 - 3.8 LA/Ao root 1.17 --------- ratio, MM Right atrium Value Ref Area, ES 13 cm 2 10 - 18 SI dim, ES, A4C 5.8 cm 3.4 - 5.3 SI dim/bsa, ES, 3.1 cm/m 2 1.9 - 3.1 A4C Vol, ES, A/L 26 ml --------- Vol, ES, 1-p 26 ml --------- A4C Vol/bsa, ES, 14 ml/m 2 9 - 33 1-p A4C PATIENT NAME: ZHANNA SANTOS [id number] Aortic valve Value Ref LIAT, plan 0.51 cm 2 --------- LIAT/bsa, plan 0.27 cm 2/m 2 --------- Leaflet sep, MM 0.52 cm --------- Peak v, S 4.09 m/sec --------- Mean v, S 3.03 m/sec --------- VTI, S 99.4 cm --------- Mean grad, S 39.8 mm Hg --------- Peak grad, S 66.8 mm Hg --------- LVOT/AV, VTI 0.21 --------- ratio LIAT, VTI 0.65 cm 2 --------- LVOT/AV, Vpeak 0.2 --------- ratio LIAT, Vmax 0.62 cm 2 --------- Mitral valve Value Ref Peak E 0.07 m/sec --------- Peak A 0.86 m/sec --------- Decel time 285 ms --------- PHT 60 ms --------- Peak E/A ratio 0.72 --------- MVA, PHT 3.7 cm 2 --------- MR peak v 2.8 m/sec --------- Pulmonic valve Value Ref DE v, ED 0.57 m/sec --------- Tricuspid valve Value Ref TR peak v 1.88 m/sec <=2.8 Peak RV-RA 14 mm Hg --------- grad, S Aortic root Value Ref Root diam, ED 2.76 cm --------- MM Conclusions Summary: 1. Left ventricle: The cavity size is normal. Wa ll thickness is normal. Systolic function is normal. The estimated ejec tion fraction is 55-60%. Wall motion is normal; there are no reg ional wall motion abnormalities. Doppler parameters are consisten t with abnormal left ventricular relaxation (grade 1 diastolic dysfu nction). Average global longitudinal strain is -18.9. 2. Aortic valve: Cusp separation is severely red uced. Noncoronary cusp mobility is severely restricted. The findings a re consistent with severe stenosis. The planimetered valve area is 0.51 cm 2. The peak systolic velocity is 4.09 m/sec. The mean systo lic gradient is 39.8 mm Hg. The peak systolic gradient is 66.8 mm Hg . The valve area by PATIENT NAME: ZHANNA SANTOS [id number] the peak velocity method is 0.62 cm 2. 3. Mitral valve: The annulus is mildly calcified . There is trivial regurgitation. 4. Tricuspid valve: There is physiologic regurgi tation. Prepared and electronically signed by Leonel Mahmood MD 11/07/2022 15:29 Electronically Signed by Leonel Mahmood MD on 0 11/07/22 at 1529 PATIENT NAME: ZHANNA SANTOS [id number] 2022-11-06 15:52:00-00:00 [id number] [place] [address] PATIENT NAME: ZHANNA SANTOS ADMIT DATE: 10/21 11/12 ACCOUNT NO: [id number] ROOM NO: AGE: 76 REPORT TYPE: PULMONARY FUNCTION REPORT SEX: F ADMITTING PHYSICIAN: ATTENDING PHYSICIAN:Gabo Horan NP STUDY DATE: 11/06/2022 FULL PULMONARY FUNCTION TEST INTERPRETATION SPIROMETRY: FVC is 112% of predicted. FEV1 is 10 6% of predicted. Ratio is 71 and normal. No response to bronchodilator. TLC i s 90%. Diffusion capacity 99%. FULL PULMONARY FUNCTION TEST: Within normal limi ts. Dictated By: Laurie Capone MD Date Dictated: 11/06/2022 15:52:37 Date Transcribed: 11/06/2022 16:04:46 /ANNIE/TRAVIS Receipt ID: [id number] Authenticated by LAURIE CAPONE MD On 11/08/2022 11:47:54 AM Electronically Signed by Laurie Capone MD on at 1147 PATIENT NAME: ZHANNA SANTOS [id number] 2022-10-30 17:10:00-00:00 [id number] [place] [address] PATIENT NAME: ZHANNA SANTOS ADMIT DATE: 10/21 05/15 ACCOUNT NO: [id number] ROOM NO: AGE: 76 REPORT TYPE: eELECTROCARDIOGRAM REPORT SEX: F ADMITTING PHYSICIAN: ATTENDING PHYSICIAN:Eduin Nur MD Order: [id number] Test Reason : PRE OP Test Date/Time Stamp: SunOct 30 2022 17:10:33 Blood Pressure : / mmHG Vent. Rate : 060 BPM Atrial Rate : 060 BPM P-R Int : 186 ms QRS Dur : 088 ms QT Int : 414 ms P-R-T Axes : 067 065 054 degree s QTc Int : 414 ms Normal sinus rhythm Cannot rule out Anterior infarct , age undetermi christelle Abnormal ECG No previous ECGs available Confirmed by TRISHA HERNANDEZ, ORQUIDEA ([id number]) on 11/08/2022 11:07:04 AM Referred By: Eduin Nur Confirmed by:ORQUIDEA OSHEA MD Electronically Signed by Orquidea Addison MD on 10/21 01/13 at 1107 PATIENT NAME: ZHANNA SANTOS [id number]
[2022-12-15] MEDS ORDERED: METOPROLOL TARTRATE 5 MG/5 ML INJ IV ONE (02:02)
[2022-12-15 02:23] LABS: Absolute Lymphocytes (CBC) 1.7 K/uL (0.7-4.9); Hematocrit 42.1 % (36.0-45.0); Lymphocytes % 21.6 % (15.3-44.8); MCV 93.4 fL (80-100); MPV 7.8 fL (7.6-11.3); Platelets 182 thou/uL (152-406); RBC Red Blood Cell Count 4.51 M/uL (3.86-4.86)
[2022-12-15 02:28] LABS: Protime INR 0.95
--- NOTE | 2022-12-15 02:53 | ER ---
Nurse's Notes [facility] Name: Zhanna Santos Age: 77 yrs Sex: Female : 1945 Arrival Date: 12/15/2022 Time: : Bed 8 Private MD: Diagnosis: Unspecified atrial fibrillation-RVR;Atrial fibrillation with rapid ventricular response, dizziness, near syncope Presentation: 12/15 01:40 Chief complaint: Patient states: had tavers procedure 2 weeks ago c/o dizziness kl irregular pulse pt drew hx of a fib taken off metoprolol after procedure. 01:40 Method Of Arrival: Wheelchair kl 01:40 Coronavirus screen: Client denies travel out of the [place] in the last 14 days. At this vc1 time, the client does not indicate any symptoms associated with coronavirus-19. Ebola Screen: Patient negative for fever greater than or equal to 101.5 degrees Fahrenheit, and additional compatible Ebola Virus Disease symptoms Patient denies exposure to infectious person. Patient denies travel to an Ebola-affected area in the 21 days before illness onset. No symptoms or risks identified at this time. 01:40 Initial Sepsis Screen: Does the patient meet any 2 criteria? No. Patient's initial vc1 sepsis screen is negative. Does the patient have a suspected source of infection? No. Patient's initial sepsis screen is negative. Risk Assessment: Do you want to hurt yourself or someone else? Patient reports no desire to harm self or others. Onset of symptoms was December 15, 2022. 01:40 Acuity: SIVAKUMAR 3 vc1 Triage Assessment: 02:06 General: Appears in no apparent distress. uncomfortable, Behavior is cooperative, vc1 anxious. Pain: Denies pain. EENT: No deficits noted. No signs and/or symptoms were reported regarding the EENT system. Neuro: Level of Consciousness is awake, alert, obeys commands, Oriented to person, place, time, situation, Appropriate for age. Cardiovascular: Reports palpitations, Rhythm is atrial fibrillation with rapid ventricular response. Respiratory: Airway is patent Respiratory effort is even, unlabored, Respiratory pattern is regular, agonal. GI: No deficits noted. : No deficits noted. No signs and/or symptoms were reported regarding the genitourinary system. Derm: No deficits noted. No signs and/or symptoms reported regarding the dermatologic system. Musculoskeletal: No deficits noted. No signs and/or symptoms reported regarding the musculoskeletal system. Historical: - Allergies: 02:02 PENICILLINS; vc1 - PMHx: 02:02 Diabetes - NIDDM; Hypertension; irregular heartbeat; mitral valve prolapse; vc1 - PSHx: 02:02 TAVR; vc1 - Immunization history:: Client reports receiving the 2nd dose of the Covid vaccine, plus one booster, Pfizer. - Social history:: Smoking status: Patient denies any tobacco usage or history of. Screenin:40 Abuse screen: Denies threats or abuse. Nutritional screening: No deficits noted. vc1 Tuberculosis screening: No symptoms or risk factors identified. 01:40 [facility] ED Fall Risk Assessment (Adult) History of falling in the last 3 months, vc1 including since admission No falls in past 3 months (0 pts) Confusion or Disorientation No (0 pts) Intoxicated or Sedated No (0 pts) Impaired Gait No (0 pts) Mobility Assist Device Used No (0 pt) Altered Elimination No (0 pt) Score/Fall Risk Level 0 - 2 = Low Risk Oriented to surroundings, Maintained a safe environment, Educated pt \T\ family on fall prevention, incl call for assistance when getting out of bed. Assessment: 01:40 Pain: Denies pain. Pain began. Cardiovascular: Rhythm is atrial fibrillation with rapid vc1 ventricular response. 01:40 Pain: Pain does not radiate. vc1 07:18 Reassessment: report given to JORDAN Aguilar. iw Vital Signs: 01:42 BP 141 / 102; Pulse 161; Resp 13; Pulse Ox 100% ; vc1 02:00 BP 141 / 120; Pulse 136; Resp 12; Pulse Ox 100% ; vc1 02:30 BP 124 / 110; Pulse 135; Resp 15; Pulse Ox 98% ; vc1 03:15 BP 107 / 61; Pulse 130; Resp 14; Pulse Ox 99% ; vc1 03:29 BP 107 / 61; Pulse 64; Resp 13; Pulse Ox 95% ; vc1 ED Course: 01:30 Patient arrived in ED. jj6 01:33 Paris Lal FNP-C [facility]. snw 01:33 José Turk MD is Attending Physician. snw 01:40 Patient has correct armband on for positive identification. Bed in low position. Call vc1 light in reach. Client placed on continuous cardiac and pulse oximetry monitoring. NIBP monitoring applied. 01:40 Arm band placed on left wrist. vc1 01:59 Lo Calderon, RN is Primary Nurse. vc1 02:00 Inserted saline lock: 20 gauge in right antecubital area, using aseptic technique. as6 Blood collected. 02:02 Triage completed. vc1 02:02 Patient maintains SpO2 saturation greater than 95% on room air. vc1 02:13 XRAY Chest (1 view) In Process Unspecified. EDMS 02:44 Basic Metabolic Panel Sent. wm 02:44 LFT's Sent. wm 02:44 Magnesium Sent. wm 02:44 NT PRO-BNP Sent. wm 02:44 Troponin HS Sent. wm 02:44 Lab(s) recollected, by me, sent to lab. wm 02:52 Macario Varela MD is Hospitalizing Provider. snw 04:15 No provider procedures requiring assistance completed. Patient admitted, IV remains in vc1 place. 04:15 Provided Education on: Cardiac medications. vc1 Administered Medications: 04:58 Discontinued: Diltiazem IV 5 mg/hr IV at calculated rate See Administration vc1 Instructions; (standard dilution 125 mg diltiazem mixed in 125 mL NS; final concentration 1mg/mL). Recommended max rate 15 mg/hr; Titrate 5 mg/hr as often as every 15 minutes to achieve goal (see titration policy); Goal parameter HR less than 100 bpm 01:57 Drug: Metoprolol IVP 5 mg Route: IVP; Site: right antecubital; as6 02:29 Drug: Metoprolol IVP 5 mg Route: IVP; Site: right antecubital; vc1 02:35 Drug: Metoprolol IVP 5 mg Route: IVP; Site: right antecubital; vc1 03:00 Drug: NS 0.9% IV 250 ml Route: IV; Rate: bolus; Site: right antecubital; vc1 03:15 Drug: Diltiazem IVP 10 mg Route: IVP; Site: right antecubital; vc1 03:15 Drug: Diltiazem IV 5 mg/hr Route: IV; Rate: calculated rate; Site: right antecubital; vc1 03:27 Follow up: IV Status: Order to discontinue infusion vc1 03:27 Drug: NS 0.9% IV 500 ml Route: IV; Rate: bolus; Site: right antecubital; vc1 03:50 Drug: Diltiazem PO 30 mg Route: PO; vc1 Medication: 02:05 VIS not applicable for this client. vc1 Outcome: 02:53 Decision to Hospitalize by Provider. snw 04:46 Admitted to ER Hold. Please see [facility] for further documentation. vc1 04:46 Condition: good 04:46 Instructed on the need for admit. 07:46 Patient left the ED. ds4 Signatures: Dispatcher [employer] EDMS Lisbet Robins, RN Paris Hines, PEER COUNSELOR-C PEER COUNSELOR-Csnw Joyce Manzo, RN RN Liu Patel ds4 Sofia Steward Jennifer jj6 Slawson, Ashby, RN RN as6 Lo Calderon RN RN vc1
--- NOTE | 2022-12-15 02:54 | EDPHYS ---
Physician Documentation [facility] Name: Zhanna Santos Age: 77 yrs Sex: Female : 1945 Arrival Date: 12/15/2022 Time: 01:25 Bed 8 Private MD: ED Physician José Turk HPI: 12/15 01:59 This 77 yrs old Female presents to ER via Wheelchair with complaints of Irregular snw Pulse, High Blood Pressure, Dizziness. 01:59 The patient presents with a history of irregular heart beat, heart racing. Context: The snw symptoms occur at rest. Onset: The symptoms/episode began/occurred acutely. Duration: The patient or guardian reports multiple episodes, that are intermittent. Modifying factors: The symptoms are aggravated by lying down. Associated signs and symptoms: Pertinent positives: anxiety, lightheadedness. Severity of symptoms: At their worst the symptoms were moderate in the emergency department the symptoms are unchanged. The patient has experienced similar episodes in the past. pt recently had aortic valve replacement per Dr. Nur at [facility]. Taken off metoprolol pre procedure. Pt doing well x 3-4 days, went to cardiac rehab today and did well. Started having some palpitations today, exacerbated by lying down. Pt went to sleep today and palpitations awoke her from sleep. . 02:[address] Varela. snw 07:25 Patient care assumed from [facility]. Patient presents with dizziness and palpitations that sp4 started right after midnight. No prior similar episode. Patient has history of aortic valve replacement 11/28/2022 for aortic valve stenosis at the [facility]. Patient has history of diabetes, she takes ezetimibe 10 mg daily, patient also on spironolactone 5 mg daily, fark C[employer] 10 mg daily, Rybelsus 7 mg daily Plavix 75 mg daily aspirin 81 mg daily. Since 1 AM patient has had palpitations and dizziness. . On arrival patient's rhythm revealed rapid atrial fibrillation at the rate of 150 bpm. . Historical: - Allergies: 02:02 PENICILLINS; vc1 - PMHx: 02:02 Diabetes - NIDDM; Hypertension; irregular heartbeat; mitral valve prolapse; vc1 - PSHx: 02:02 TAVR; vc1 - Immunization history:: Client reports receiving the 2nd dose of the Covid vaccine, plus one booster, Pfizer. - Social history:: Smoking status: Patient denies any tobacco usage or history of. ROS: 01:58 Constitutional: Negative for fever, chills, and weight loss, Eyes: Negative for injury, snw pain, redness, and discharge, ENT: Negative for injury, pain, and discharge, Neck: Negative for injury, pain, and swelling, Respiratory: Negative for shortness of breath, cough, wheezing, and pleuritic chest pain, Abdomen/GI: Negative for abdominal pain, nausea, vomiting, diarrhea, and constipation, Back: Negative for injury and pain, : Negative for injury, bleeding, discharge, and swelling, MS/Extremity: Negative for injury and deformity, Skin: Negative for injury, rash, and discoloration. 01:58 Cardiovascular: Positive for palpitations. 01:58 Neuro: Positive for dizziness. Exam: 01:49 Constitutional: This is a well developed, well nourished patient who is awake, alert, snw and in no acute distress. Head/Face: Normocephalic, atraumatic. Eyes: Pupils equal round and reactive to light, extra-ocular motions intact. Lids and lashes normal. Conjunctiva and sclera are non-icteric and not injected. Cornea within normal limits. Periorbital areas with no swelling, redness, or edema. ENT: Nares patent. No nasal discharge, no septal abnormalities noted. Tympanic membranes are normal and external auditory canals are clear. Oropharynx with no redness, swelling, or masses, exudates, or evidence of obstruction, uvula midline. Mucous membranes moist. Neck: Trachea midline, no thyromegaly or masses palpated, and no cervical lymphadenopathy. Supple, full range of motion without nuchal rigidity, or vertebral point tenderness. No Meningismus. Chest/axilla: Normal chest wall appearance and motion. Nontender with no deformity. No lesions are appreciated. 01:49 Respiratory: Lungs have equal breath sounds bilaterally, clear to auscultation and percussion. No rales, rhonchi or wheezes noted. No increased work of breathing, no retractions or nasal flaring. Abdomen/GI: Soft, non-tender, with normal bowel sounds. No distension or tympany. No guarding or rebound. No evidence of tenderness throughout. Back: No spinal tenderness. No costovertebral tenderness. Full range of motion. Skin: Warm, dry with normal turgor. Normal color with no rashes, no lesions, and no evidence of cellulitis. MS/ Extremity: Pulses equal, no cyanosis. Neurovascular intact. Full, normal range of motion. Neuro: Awake and alert, GCS 15, oriented to person, place, time, and situation. Cranial nerves II-XII grossly intact. Motor strength 5/5 in all extremities. Sensory grossly intact. Cerebellar exam normal. Normal gait. Psych: Awake, alert, with orientation to person, place and time. Behavior, mood, and affect are within normal limits. 01:49 Cardiovascular: Rate: tachycardic, Rhythm: irregularly irregular, Pulses: no pulse deficits are appreciated, Heart sounds: normal, Edema: is not appreciated. 04:37 ECG was reviewed by the Attending Physician. Initial EKG time 0 153 atrial fibrillation sp4 with rapid ventricular response at the rate of 152, ST depressions V2 V4 V5 V6. Normal intervals otherwise EKG is abnormal Vital Signs: 01:42 BP 141 / 102; Pulse 161; Resp 13; Pulse Ox 100% ; vc1 02:00 BP 141 / 120; Pulse 136; Resp 12; Pulse Ox 100% ; vc1 02:30 BP 124 / 110; Pulse 135; Resp 15; Pulse Ox 98% ; vc1 03:15 BP 107 / 61; Pulse 130; Resp 14; Pulse Ox 99% ; vc1 03:29 BP 107 / 61; Pulse 64; Resp 13; Pulse Ox 95% ; vc1 MDM: 01:48 Patient medically screened. snw 02:02 Differential diagnosis: arrythmia, dehydration, stress disorder. Data reviewed: vital snw signs, nurses notes, lab test result(s), EKG, radiologic studies. I considered the following discharge prescriptions or medication management in the emergency department Medications were administered in the Emergency Department. See JUN. 02:27 Historians other than the Patient: Daughter/Son: Son and Daughter. Counseling: I had a snw detailed discussion with the patient and/or guardian regarding the historical points, exam findings, and any diagnostic results supporting the discharge/admit diagnosis, the presence of at least one elevated blood pressure reading (>120/80) during this emergency department visit, lab results, radiology results, the need for further work-up and treatment in the hospital. 02:28 ED course: Dr. Turk in to see immanuelt, suggests cardizem. Pt has only rec'd one IV snw push of metoprolol, will cancel remainder. 02:47 Transition of care: After a detail discussion of the patient's case, care is snw transferred to José Turk MD. 02:51 ED course: NS bolus not given, instructed to please give bolus now . snw 04:40 ED course: We will consult food court team member Dr. Nur in AM . sp4 07:24 ED course: Patient has converted from rapid A-fib into sinus rhythm with Cardizem and sp4 then converted to sinus bradycardia at the rate of 54. Symptoms have resolved. . 12/15 01:49 Order name: Basic Metabolic Panel w 12/15 01:49 Order name: CBC with Diff; Complete Time: 02:26 snw 12/15 01:49 Order name: LFT's snw 12/15 01:49 Order name: Magnesium snw 12/15 01:49 Order name: NT PRO-BNP snw 12/15 01:49 Order name: PT-INR; Complete Time: 02:31 snw 12/15 01:49 Order name: Troponin HS snw 12/15 03:07 Order name: Basic Metabolic Panel EDMS 12/15 03:07 Order name: Basic Metabolic Panel EDMS 12/15 03:07 Order name: CBC with Automated Diff EDMS 12/15 03:07 Order name: CBC with Automated Diff EDMS 12/15 03:07 Order name: Troponin High Sensitivity EDMS 12/15 03:07 Order name: Troponin High Sensitivity EDMS 12/15 03:07 Order name: Troponin High Sensitivity EDMS 12/15 03:07 Order name: Troponin High Sensitivity EDMS 12/15 07:29 Order name: Glucose, Ancillary Testing EDMS 12/15 01:49 Order name: XRAY Chest (1 view) snw 12/15 01:49 Order name: EKG; Complete Time: 01:50 snw 12/15 03:06 Order name: CONS Physician Consult EDMS 12/15 03:06 Order name: Regular EDMS 12/15 03:06 Order name: EKG Electrocardiogram EDMS 12/15 03:06 Order name: EKG Electrocardiogram EDMS 12/15 03:06 Order name: EKG Electrocardiogram EDMS 12/15 03:06 Order name: EKG Electrocardiogram EDMS 12/15 03:25 Order name: EKG; Complete Time: 03:26 sp4 12/15 01:49 Order name: Cardiac monitoring; Complete Time: :58 snw 12/15 01:49 Order name: EKG - Nurse/Tech; Complete Time: :58 snw 12/15 01:49 Order name: IV Saline Lock; Complete Time: :59 snw 12/15 01:49 Order name: Labs collected and sent; Complete Time: 02:00 snw 12/15 01:49 Order name: O2 Per Protocol; Complete Time: :58 snw 12/15 01:49 Order name: O2 Sat Monitoring; Complete Time: snw 12/15 02:30 Order name: Misc. Order: please document HR; Complete Time: 02:51 snw 12/15 03:25 Order name: EKG - Nurse/Tech; Complete Time: 03:36 sp4 EC:58 Rate is 152 beats/min. Rhythm is irregularly irregular. QRS interval is normal. No Q snw waves. Clinical impression: Atrial Fibrillation. 04:37 Rate is 152 beats/min. Rhythm is irregularly irregular, A fib. QRS interval is normal. sp4 QT interval is normal. Clinical impression: Atrial Fibrillation. Administered Medications: 04:58 Discontinued: Diltiazem IV 5 mg/hr IV at calculated rate See Administration vc1 Instructions; (standard dilution 125 mg diltiazem mixed in 125 mL NS; final concentration 1mg/mL). Recommended max rate 15 mg/hr; Titrate 5 mg/hr as often as every 15 minutes to achieve goal (see titration policy); Goal parameter HR less than 100 bpm 01:57 Drug: Metoprolol IVP 5 mg Route: IVP; Site: right antecubital; as6 02:29 Drug: Metoprolol IVP 5 mg Route: IVP; Site: right antecubital; vc1 02:35 Drug: Metoprolol IVP 5 mg Route: IVP; Site: right antecubital; vc1 03:00 Drug: NS 0.9% IV 250 ml Route: IV; Rate: bolus; Site: right antecubital; vc1 03:15 Drug: Diltiazem IVP 10 mg Route: IVP; Site: right antecubital; vc1 03:15 Drug: Diltiazem IV 5 mg/hr Route: IV; Rate: calculated rate; Site: right antecubital; vc1 03:27 Follow up: IV Status: Order to discontinue infusion vc1 03:27 Drug: NS 0.9% IV 500 ml Route: IV; Rate: bolus; Site: right antecubital; vc1 03:50 Drug: Diltiazem PO 30 mg Route: PO; vc1 Disposition: 03:26 Co-signature as Attending Physician, José Turk MD I agree with the assessment sp4 and plan of care. I reviewed the patient's care provided by Advanced Practice Provider \T\ agree w/ the diagnosis \T\ care plan. I personally saw the pt \T\ performed a substantive portion of the visit, incldng all aspects of the (History/Exam/Medical Decision Making). Disposition Summary: 12/15/22 02:53 Hospitalization Ordered Hospitalization Status: Observation snw Provider: Macario Varela snw Condition: Stable snw Problem: an acute exacerbation snw Symptoms: have improved snw Bed/Room Type: Standard snw Location: Intensive Care Unit(12/15/22 05:59) mw Room Assignment: 7-(12/15/22 05:59) mw Diagnosis - Unspecified atrial fibrillation - RVR snw - Atrial fibrillation with rapid ventricular response, dizziness, near syncope sp4 Forms: - Medication Reconciliation Form snw - SBAR form snw - Leadership Thank You Letter snw Signatures: Dispatcher [employer] EDKelle Ruiz RN RN mw Waters, Shelly, FNP-Robbie HOUSEHOLD COOK-Csnw Tereso Garcia RN RN as6 Lo Calderon RN RN vc1 José Turk MD MD sp4 Corrections: (The following items were deleted from the chart) 03:06 02:53 Telemetry/MedSurg (Inpatient) snw snw 03:06 02:53 snw snw 03:34 03:06 Intensive Care Unit snw mw 03:34 03:06 snw mw 05:59 03:34 [facility] ER HOLD mw mw 05:59 03:34 ERHOLD- mw mw
[2022-12-15] MEDS ORDERED: ACETAMINOPHEN 500 MG TAB PO PRN (02:55)
[2022-12-15] MEDS ORDERED: DILTIAZEM INJ 125 MG/25 ML 125 MG in NA CHLORIDE 0.9% 100 ML IV SCH (03:00)
[2022-12-15] MEDS ORDERED: NA CHLORIDE 0.9% 250 ML ONE (03:06)
[2022-12-15] MEDS ORDERED: dilTIAZem HCL 25 MG/5 ML VIAL IV ONE ×2 (03:07→03:15)
[2022-12-15 03:11] LABS: Albumin 3.3 g/dL (3.4-5.0); Bilirubin Direct 0.1 mg/dL (0-0.2); Bilirubin Indirect, Calculated 0.3 mg/dL (0.2-0.8); Bilirubin Total 0.4 mg/dL (0.2-1.0); Potassium 3.6 mEq/L (3.5-5.1); Protein, Total 6.9 g/dL (6.4-8.2); Troponin High Sensitivity 9.8 pg/mL (<58.9)
[2022-12-15] MEDS ORDERED: NA CHLORIDE 0.9% 100 ML ONE (03:12)
[2022-12-15] MEDS ORDERED: DILTIAZEM HCL 60 MG TAB ONE (03:49)
[2022-12-15 04:49] VITALS: BMI 29.1
[2022-12-15] MEDS ORDERED: NA CHLORIDE 0.9% 500 ML ONE (05:37)
[2022-12-15] MEDS: NA CHLORIDE 0.9% 500 ML IV SCH ×2 (06:05→13:00)
[2022-12-15 08:03] VITALS: O2SAT 95
[2022-12-15] MEDS ORDERED: DILTIAZEM HCL 60 MG TAB PO SCH (09:00)
[2022-12-15] MEDS ORDERED: ASPIRIN EC 81 MG TAB PO SCH (09:00)
[2022-12-15] MEDS ORDERED: METOPROLOL TAR 25 MG TAB PO SCH (13:00)
--- NOTE | 2022-12-15 13:23 | P.SSS ---
Patient History Date of Service: 12/15/22 Reason for admission: PALPITATION History of Present Illness: DEEPALI IS A DIABETIC WITH HTN WHO HAD TAVR PROCEDURE THIS YEAR FOR SEVERE AORTIC STENOSIS. SHE HAD BEEN TAKEN OFF THE METOPROLOL SHE HAD EARLY HEART BLOCK PER DR. CORONA. SHE WENT INTO A FIB LAST NIGHT. CARDIZEM CONVERTED HER TO SINUS BRADYCARDIA. SHE IS STABLE TO GO HOME. SHE WILL FU WITH DR. CORONA. Allergies Penicillins Allergy (Verified 12/15/22 04:37) Hives Home medications list reviewed: Yes Home Medications: Aspirin Chewable [Aspirin Chewable*] 81 mg PO DAILY 12/15/22 Clopidogrel Bisulfate [Plavix*] 75 mg PO DAILY 12/15/22 Dapagliflozin Propanediol [Farxiga] 5 mg PO DAILY 12/15/22 Metoprolol Succinate 12.5 mg PO DAILY #30 12/15/22 Semaglutide [Rybelsus] 7 mg PO DAILY 12/15/22 - Past Medical/Surgical History Has patient received pneumonia vaccine in the past: Yes Diabetic: Yes -: Diabetes -: Hypertension -: Atrial Fibrillation -: Mitral Valve Prolapse -: TAVR - Social History Smoking Status: Unknown if ever smoked Alcohol use: No CD- Drugs: No Place of Residence: Home Review of Systems 10-point ROS is otherwise unremarkable Physical Examination - Vital Signs Temperature: 97.8 F Blood Pressure: 118/87 Pulse: 65 Respirations: 13 Pulse Ox (%): 100 - Physical Exam General: Alert, In no apparent distress HEENT: Atraumatic, PERRLA, Mucous membr. moist/pink, EOMI, Sclerae nonicteric Neck: Supple, 2+ carotid pulse no bruit, No LAD, Without JVD or thyroid abnormality Respiratory: Clear to auscultation bilaterally, Normal air movement Cardiovascular: Regular rate/rhythm, Normal S1 S2 Gastrointestinal: Normal bowel sounds, No tenderness Musculoskeletal: No tenderness Integumentary: No rashes Neurological: Normal gait, Normal speech, Normal strength at 5/5 x4 extr, Normal tone, Normal affect Lymphatics: No axilla or inguinal lymphadenopathy - Studies Laboratory Data (last 24 hrs) 12/15/22 12/15/22 12/15/22 02:38 01:58 01:58 WBC 7.90 Hgb 14.7 Hct 42.1 Plt Count 182 PT 10.4 INR 0.95 Sodium 142 Potassium 3.6 BUN 19 H Creatinine 0.71 Glucose 138 H Magnesium 2.0 Total Bilirubin 0.4 AST 15 ALT 27 Alkaline Phosphatase 62 - Diagnosis (Problem(s)) (1) Rapid atrial fibrillation Current Visit: Yes Status: Acute Plan: SMALL DOSE OF B MELODY MAY KEEP HER IN NSR DISCUSSED WITH HER. SHE IS STABLE TO GO HOME. FU IN OFFICE ONE WEEK. - Disposition Disposition: ROUTINE DISCHARGE Condition: FAIR
[2022-12-15 13:24] VITALS: TEMP 97.8
--- NOTE | 2022-12-15 15:12 | RAD REPORT ---
EXAM DESCRIPTION: XR Chest, 1 View CLINICAL HISTORY: The patient is 77 years old and is Female; tachycardia [facility] MAIN TECHNIQUE: Frontal view of the chest. COMPARISON: No relevant prior studies available. FINDINGS: LUNGS: Unremarkable. No consolidation. PLEURAL SPACE: Unremarkable. No pleural effusion. No pneumothorax. HEART: Unremarkable. No cardiomegaly. MEDIASTINUM: Unremarkable. Normal cardiomediastinal silhouette for portable technique. BONES/JOINTS: Unremarkable. TUBES, LINES AND DEVICES: Transcatheter aortic valve replacement (TAVR). Presumed leadless cardiac device or other implantable device demonstrated over the left of midline up per chest. IMPRESSION: No acute findings in the chest. Electronically signed by: Lucian Potts MD 12/15/2022 2:36 AM CDT Due to temporary technical issues with the PACS/Fluency reporting system, reports are being signed by the in house radiologists without review as a courtesy to insure prompt reporting. The interpreting radiologist is fully responsible for the content of the report.
--- NOTE | 2022-12-15 15:20 | EKG ---
Test Date: 2022-12-15 Test Time: 03:31:58 Audit Associate: JORGE LUIS MEASUREMENT RESULTS: Intervals: Rate: 64 VT: 202 QRSD: 86 QT: 424 QTc: 437 Currie: P: 68 VT: 202 QRS: 42 T: 43 INTERPRETIVE STATEMENTS: Normal sinus rhythm Normal ECG Compared to ECG 12/15/2022 01:53:20 Atrial fibrillation no longer present Myocardial infarct finding no longer present ST (T wave) deviation no longer present Possible ischemia no longer present Electronically Signed On 12-15-22 15:20:10 CDT by Eduin Nur
--- NOTE | 2022-12-15 15:20 | EKG ---
Test Date: 2022-12-15 Test Time: 01:53:20 Principal Consulting Engineer: MEREDITH MEASUREMENT RESULTS: Intervals: Rate: 152 TN: QRSD: 80 QT: 306 QTc: 486 Ward: P: TN: QRS: 21 T: -53 INTERPRETIVE STATEMENTS: Atrial fibrillation with rapid ventricular response Possible Anterior infarct, age undetermined ST & T wave abnormality, consider inferior ischemia Abnormal ECG Compared to ECG 09/27/2018 16:20:39 ST (T wave) deviation now present Possible ischemia now present Sinus bradycardia no longer present Myocardial infarct finding still present Electronically Signed On 12-15-22 15:20:15 CDT by Eduin Nur
[2022-12-15 18:39] VITALS: BP 113/49
--- NOTE | 2022-12-15 18:48 | CON ---
Date of Consultation: 12/15/2022 Reason For Consultation: Atrial fibrillation. History Of Present Illness: A 77-year-old female, history of aortic valve stenosis, status post rece nt TAVR, hypertension, diabetes, presented with palpitations, could not get comfortable, found to be in atrial fibrillation with rapid ventricular response. She was started on Cardizem drip and convert ed to sinus rhythm and now she is in sinus rhythm, feeling well. No chest pain. No shortness of josué ath or dizziness or passing out spells. Past Medical History: As outlined above in the HPI. Medications: Refer to reconciliation sheet for detailed list. Allergies: NO KNOWN DRUG ALLERGIES. Family History: No premature coronary artery disease or cancer. Social History: She does not smoke or drink. Does not use any drugs. Review of Systems: All systems were reviewed, they were negative except as mentioned in HPI. Physical Examination: Vital Signs: Reviewed. Head and Neck: Pupils are equal, reactive to light. Intact eye movements. No JVD. No cervical lym phadenopathy. Neck is supple. Thyroid is not enlarged. Lungs: Clear to auscultation bilaterally. No rhonchi, wheezing, or crackles. No accessory muscle u se. Heart: Regular rate and rhythm. No extra sounds. Abdomen: Soft, nontender. Bowel sounds positive. No organomegaly. No masses or hernia. No rigidi ty or rebound. Extremities: No edema, clubbing, or cyanosis. Intact pulses. Skin: No rash. No nodule. Neurologic: Alert, awake, oriented x3. No acute focal deficits appreciated. Investigations: Cardiac enzymes negative x4. BUN 19, creatinine 0.71, and hemoglobin is 14.7. Assessment And Recommendations: 1.Atrial fibrillation with rapid ventricular response, converted to sinus rhythm. Put her on metopr olol 12.5 mg twice a day. Discontinue Cardizem and also recommend Eliquis 5 mg twice a day and the p atient can be released to follow up with me early next week. 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 2.Severe aortic valve stenosis, status TAVR, doing very well. From Cardiology standpoint, patient can be released today and follow up next week as outlined above. SR/MODL Voice ID: [id number] Report ID: [id number]
== END 2022-12-15 18:48 | disposition home or self-care (01) ==
LOC: ER 01:25 → INTOOBSV 02:55 → ERHOLD 02:55 → 3RD-ICU 06:06
PROVIDERS: ADMIT Internal Medicine; ATTEND Internal Medicine
DX: I48.20 Chronic atrial fibrillation, unspecified (principal); I35.0 Nonrheumatic aortic (valve) stenosis; I10 Essential (primary) hypertension; E11.9 Type 2 diabetes mellitus without complications
CPT/HCPCS: 93005 ×2; 85025; 80048; 36415; 83735; 85610; 82947; 80076; 84484 ×4; 83880; 71045; 96375; 96374; 99285; J7050; J7040 ×2; G0378